=== PATIENT | female | born 1965 | race Caucasian/White ===

== ENCOUNTER → 2020-07-11 10:45 | Outpatient (BNVA) | payer OTHER, SELFPAY | PROVIDERS: PCP Internal Medicine; Visit Provider Student in an Organized Health Care Education/Training Program | DX: Z76.89 Persons encountering health services in other specified circumstances (principal) ==

== ENCOUNTER 2020-08-16 09:06 | Outpatient (REF) | payer OTHER, SELFPAY ==
--- NOTE | 2020-08-16 09:42 | XR_ITS ---
EXAMINATION: XR HIP, RIGHT XR HIP, LEFT CLINICAL INFORMATION: Rheumatoid arthritis. COMPARISON: None TECHNIQUE: 2 views of each hip. FINDINGS: Right hip: No fracture or dislocation. The femoral head articulates appropriately with its acetabulum. Mild joint space narrowing. Mild subchondral sclerosis. Small osteophytes present. The visualized right hemipelvis is intact. Left hip: No fracture or dislocation. The femoral head articulates appropriately with its acetabulum. Mild joint space narrowing. Mild subchondral sclerosis. Small osteophytes are present. The visualized left hemipelvis is intact. XR/XR hip LT min 2V IMPRESSION: Mild degenerative change with osteophyte formation. Mild joint space narrowing.
--- NOTE | 2020-08-16 09:42 | XR_ITS ---
EXAMINATION: XR HIP, RIGHT XR HIP, LEFT CLINICAL INFORMATION: Rheumatoid arthritis. COMPARISON: None TECHNIQUE: 2 views of each hip. FINDINGS: Right hip: No fracture or dislocation. The femoral head articulates appropriately with its acetabulum. Mild joint space narrowing. Mild subchondral sclerosis. Small osteophytes present. The visualized right hemipelvis is intact. Left hip: No fracture or dislocation. The femoral head articulates appropriately with its acetabulum. Mild joint space narrowing. Mild subchondral sclerosis. Small osteophytes are present. The visualized left hemipelvis is intact. XR/XR hip RT min 2V IMPRESSION: Mild degenerative change with osteophyte formation. Mild joint space narrowing.
== END 2020-08-16 09:07 | disposition home or self-care (01) ==
LOC: HO.XRAY 09:06
PROVIDERS: PCP Internal Medicine Gastroenterology; Visit Provider Student in an Organized Health Care Education/Training Program
DX: M05.9 Rheumatoid arthritis with rheumatoid factor, unspecified (principal); M79.7 Fibromyalgia; Z87.891 Personal history of nicotine dependence; Z88.8 Allergy status to other drugs, medicaments and biological substances; Z88.6 Allergy status to analgesic agent; Z88.1 Allergy status to other antibiotic agents; Z91.040 Latex allergy status; Z79.899 Other long term (current) drug therapy
CPT/HCPCS: 73502; 99212

== ENCOUNTER 2020-10-09 12:38 | Outpatient (REF) | payer OTHER, SELFPAY ==
[2020-10-09 13:54] LABS: MANUAL DIFF FLAG NO
[2020-10-09 13:58] LABS: Basophils Percent Auto 0.5 % (0-2); Eosinophils Absolute Auto 0.2 X10*3/uL (0.0-0.4); Eosinophils Percent Auto 3.6 % (0-4); Hematocrit 40.7 % (37-47); Hemoglobin 13.8 g/dl (12.0-16.0); Imm Gran Abs Auto 0.03 X10*3/uL (0.00-0.03); Imm Gran Pct Auto 0.5 % (0.0-0.4); Lymphocytes Absolute Auto 2.6 X10*3/uL (1.2-4.9); Lymphocytes Percent Auto 46.5 % (20-40); Mean Corpuscular HGB Conc 33.9 g/dl (31.0-35.0); Mean Corpuscular Hemoglobin 29.4 pg (27.0-33.0); Mean Corpuscular Volume 86.8 fL (80-98); Mean Platelet Volume 9.9 fL (9.4-12.3); Monocytes Absolute Auto 0.5 X10*3/uL (0.1-1.2); Monocytes Percent Auto 8.2 % (2-11); Neutrophils Absolute Auto 2.3 X10*3/uL (2.0-8.3); Neutrophils Percent Auto 40.7 % (45-73); Platelet Count 386 X10*3/uL (160-400); Red Blood Count 4.69 X10*6/uL (4.20-5.50); Red Cell Distribution Width 12.7 % (11.0-16.0); White Blood Count 5.6 X10*3/uL (4.8-10.8)
[2020-10-09 14:45] LABS: Alanine Aminotransferase 20 U/L (0-31); Albumin Level 4.3 g/dL (3.5-5.0); Alkaline Phosphatase 89 U/L (39-117); Anion Gap 16 (12-20); Aspartate Amino Transferase 18 U/L (5-31); Bilirubin Total 0.3 mg/dL (0.0-1.0); Blood Urea Nitrogen 16 mg/dL (9-16); C Reactive Protein 2.11 mg/dL (< or = 0.50); Calcium 9.8 mg/dL (8.4-10.2); Carbon Dioxide 28 mmol/L (22-29); Chloride 101 mmol/L (96-108); Estimated Glomerular Filt Rate > 60; Glucose Random 261 mg/dL (60-115); Potassium 4.7 mmol/L (3.3-5.1); Sodium 140 mmol/L (135-145); Total Protein 6.8 g/dL (6.5-8.0)
[2020-10-09 15:24] LABS: Erythrocyte Sedimentation Rate 12 MM/HR (0-20)
== END 2020-10-09 12:39 | disposition home or self-care (01) ==
LOC: HO.LAB 12:38
PROVIDERS: PCP Internal Medicine; Visit Provider Student in an Organized Health Care Education/Training Program
DX: M05.9 Rheumatoid arthritis with rheumatoid factor, unspecified (principal); M79.7 Fibromyalgia; Z88.8 Allergy status to other drugs, medicaments and biological substances; Z88.4 Allergy status to anesthetic agent; Z88.1 Allergy status to other antibiotic agents; Z91.040 Latex allergy status; Z79.899 Other long term (current) drug therapy
CPT/HCPCS: 36415; 80053; 85025; 85652; 86140; 99212

== ENCOUNTER 2020-12-12 10:02 | Outpatient (REF) | payer OTHER, SELFPAY ==
[2020-12-12 11:01] LABS: Basophils Percent Auto 0.8 % (0-2); Eosinophils Absolute Auto 0.2 X10*3/uL (0.0-0.4); Hematocrit 40.4 % (37-47); Hemoglobin 13.8 g/dl (12.0-16.0); Lymphocytes Absolute Auto 2.3 X10*3/uL (1.2-4.9); MANUAL DIFF FLAG SCAN; Mean Corpuscular HGB Conc 34.2 g/dl (31.0-35.0); Mean Corpuscular Hemoglobin 29.3 pg (27.0-33.0); Mean Corpuscular Volume 85.8 fL (80-98); Mean Platelet Volume 9.5 fL (9.4-12.3); Monocytes Absolute Auto 0.4 X10*3/uL (0.1-1.2); Monocytes Percent Auto 9.9 % (2-11); Neutrophils Absolute Auto 0.7 X10*3/uL (2.0-8.3); Neutrophils Percent Auto 20.3 % (45-73); Platelet Count 414 X10*3/uL (160-400); Red Blood Count 4.71 X10*6/uL (4.20-5.50); Red Cell Distribution Width 13.3 % (11.0-16.0); SCAN SMEAR FLAG 1; White Blood Count 3.7 X10*3/uL (4.8-10.8)
[2020-12-12 11:23] LABS: Alanine Aminotransferase 23 U/L (0-31); Albumin Level 4.7 g/dL (3.5-5.0); Alkaline Phosphatase 69 U/L (39-117); Anion Gap 13 (12-20); Aspartate Amino Transferase 23 U/L (5-31); Bilirubin Total 0.5 mg/dL (0.0-1.0); Blood Urea Nitrogen 12 mg/dL (9-16); C Reactive Protein 0.38 mg/dL (< or = 0.50); Calcium 10.2 mg/dL (8.4-10.2); Carbon Dioxide 29 mmol/L (22-29); Chloride 104 mmol/L (96-108); Cholesterol 254 mg/dL; Estimated Glomerular Filt Rate > 60; Glucose Random 109 mg/dL (60-115); HDL Cholesterol 40 mg/dL; LDL Cholesterol Calculated 165 mg/dl; Potassium 4.5 mmol/L (3.3-5.1); Sodium 141 mmol/L (135-145); Total Protein 7.2 g/dL (6.5-8.0); Triglycerides 247 mg/dL
[2020-12-12 11:46] LABS: Erythrocyte Sedimentation Rate 7 MM/HR (0-20)
[2020-12-12 11:51] LABS: SLIDE REVIEW VERIFIED
[2020-12-12 14:18] LABS: Reflex LDLD? No
== END 2020-12-12 10:03 | disposition home or self-care (01) ==
LOC: HO.LAB 10:02
PROVIDERS: PCP Internal Medicine; Visit Provider Student in an Organized Health Care Education/Training Program
DX: M05.9 Rheumatoid arthritis with rheumatoid factor, unspecified (principal)
CPT/HCPCS: 36415; 80053; 80061; 85025; 85652; 86140

== ENCOUNTER → 2020-12-21 14:31 | Outpatient (BNVA) | payer OTHER, SELFPAY | PROVIDERS: PCP Internal Medicine Gastroenterology; Visit Provider Student in an Organized Health Care Education/Training Program | DX: M05.9 Rheumatoid arthritis with rheumatoid factor, unspecified (principal); M79.7 Fibromyalgia | CPT/HCPCS: 99212 ==

== ENCOUNTER 2021-03-04 14:13 | Outpatient (REF) | payer OTHER, SELFPAY ==
[2021-03-04 14:43] LABS: MANUAL DIFF FLAG NO
[2021-03-04 14:55] LABS: Basophils Percent Auto 0.6 % (0-2); Eosinophils Absolute Auto 0.3 X10*3/uL (0.0-0.4); Eosinophils Percent Auto 4.7 % (0-4); Hematocrit 40.2 % (37-47); Hemoglobin 14.2 g/dl (12.0-16.0); Imm Gran Abs Auto 0.04 X10*3/uL (0.00-0.03); Imm Gran Pct Auto 0.6 % (0.0-0.4); Lymphocytes Absolute Auto 2.8 X10*3/uL (1.2-4.9); Lymphocytes Percent Auto 42.8 % (20-40); Mean Corpuscular HGB Conc 35.3 g/dl (31.0-35.0); Mean Corpuscular Hemoglobin 30.5 pg (27.0-33.0); Mean Corpuscular Volume 86.3 fL (80-98); Mean Platelet Volume 9.7 fL (9.4-12.3); Monocytes Absolute Auto 0.5 X10*3/uL (0.1-1.2); Monocytes Percent Auto 7.6 % (2-11); Neutrophils Absolute Auto 2.8 X10*3/uL (2.0-8.3); Neutrophils Percent Auto 43.7 % (45-73); Platelet Count 392 X10*3/uL (160-400); Red Blood Count 4.66 X10*6/uL (4.20-5.50); Red Cell Distribution Width 12.6 % (11.0-16.0); White Blood Count 6.5 X10*3/uL (4.8-10.8)
[2021-03-04 15:16] LABS: Alanine Aminotransferase 85 U/L (0-31); Albumin Level 4.5 g/dL (3.5-5.0); Alkaline Phosphatase 62 U/L (39-117); Anion Gap 12 (12-20); Aspartate Amino Transferase 65 U/L (5-31); Bilirubin Total 0.7 mg/dL (0.0-1.0); Blood Urea Nitrogen 10 mg/dL (9-16); C Reactive Protein 0.47 mg/dL (< or = 0.50); Carbon Dioxide 27 mmol/L (22-29); Chloride 106 mmol/L (96-108); Estimated Glomerular Filt Rate > 60; Glucose Random 142 mg/dL (60-115); Sodium 141 mmol/L (135-145); Total Protein 7.2 g/dL (6.5-8.0)
[2021-03-04 15:43] LABS: Erythrocyte Sedimentation Rate 6 MM/HR (0-20)
== END 2021-03-04 14:14 | disposition home or self-care (01) ==
LOC: HO.LAB 14:13
PROVIDERS: Visit Provider Student in an Organized Health Care Education/Training Program
DX: M05.9 Rheumatoid arthritis with rheumatoid factor, unspecified (principal)
CPT/HCPCS: 36415; 80053; 85025; 85652; 86140

== ENCOUNTER → 2021-03-07 14:36 | Outpatient (BNVA) | payer OTHER, SELFPAY | PROVIDERS: PCP Internal Medicine Gastroenterology; Visit Provider Student in an Organized Health Care Education/Training Program | DX: M05.9 Rheumatoid arthritis with rheumatoid factor, unspecified (principal); M79.7 Fibromyalgia; Z79.899 Other long term (current) drug therapy | CPT/HCPCS: 99212 ==

== ENCOUNTER 2021-06-06 14:12 | Outpatient (REF) | payer OTHER, SELFPAY ==
[2021-06-06 14:24] LABS: MANUAL DIFF FLAG NO
[2021-06-06 15:04] LABS: Basophils Percent Auto 0.5 % (0-2); Eosinophils Absolute Auto 0.3 X10*3/uL (0.0-0.4); Eosinophils Percent Auto 3.9 % (0-4); Hemoglobin 14.4 g/dl (12.0-16.0); Imm Gran Abs Auto 0.02 X10*3/uL (0.00-0.03); Imm Gran Pct Auto 0.3 % (0.0-0.4); Lymphocytes Absolute Auto 2.9 X10*3/uL (1.2-4.9); Lymphocytes Percent Auto 37.8 % (20-40); Mean Corpuscular HGB Conc 35.1 g/dl (31.0-35.0); Mean Corpuscular Hemoglobin 30.3 pg (27.0-33.0); Mean Corpuscular Volume 86.3 fL (80.0-98.0); Mean Platelet Volume 9.7 fL (9.4-12.3); Monocytes Absolute Auto 0.5 X10*3/uL (0.1-1.2); Monocytes Percent Auto 6.4 % (2-11); Neutrophils Absolute Auto 3.9 x10*3/uL (2.0-8.3); Neutrophils Percent Auto 51.1 % (45-73); Platelet Count 480 X10*3/uL (160-400); Red Blood Count 4.75 X10*6/uL (4.20-5.50); Red Cell Distribution Width 12.7 % (11.0-16.0); White Blood Count 7.5 X10*3/uL (4.8-10.8)
[2021-06-06 15:23] LABS: Alanine Aminotransferase 37 U/L (0-31); Albumin Level 4.4 g/dL (3.5-5.0); Alkaline Phosphatase 85 U/L (39-117); Anion Gap 12 (12-20); Aspartate Amino Transferase 36 U/L (5-31); Bilirubin Total 0.3 mg/dL (0.0-1.0); Blood Urea Nitrogen 9 mg/dL (9-16); C Reactive Protein 1.59 mg/dL (< or = 0.50); Calcium 10.2 mg/dL (8.4-10.2); Carbon Dioxide 30 mmol/L (22-29); Chloride 102 mmol/L (96-108); Cholesterol 243 mg/dL; Estimated Glomerular Filt Rate > 60; Glucose Random 110 mg/dL (60-115); HDL Cholesterol 39 mg/dL; Potassium 4.4 mmol/L (3.3-5.1); Sodium 140 mmol/L (135-145); Total Protein 7.5 g/dL (6.5-8.0); Triglycerides 505 mg/dL
[2021-06-06 15:35] LABS: Reflex LDLD? Yes
[2021-06-06 15:57] LABS: Erythrocyte Sedimentation Rate 14 MM/HR (0-20)
[2021-06-07 10:17] LABS: LDL Cholesterol Direct 168 mg/dL (<100)
== END 2021-06-06 14:13 | disposition home or self-care (01) ==
LOC: HO.LAB 14:12
PROVIDERS: Visit Provider Student in an Organized Health Care Education/Training Program
DX: M05.9 Rheumatoid arthritis with rheumatoid factor, unspecified (principal)
CPT/HCPCS: 36415; 80053; 80061; 83721; 85025; 85652; 86140

== ENCOUNTER → 2021-06-07 12:24 | Outpatient (BNVA) | payer OTHER, SELFPAY | PROVIDERS: PCP Internal Medicine Gastroenterology; Visit Provider Nurse Practitioner Family | DX: M05.9 Rheumatoid arthritis with rheumatoid factor, unspecified (principal); M79.7 Fibromyalgia | CPT/HCPCS: 99212 ==

== ENCOUNTER 2021-07-23 14:10 | Outpatient (REF) | payer OTHER, SELFPAY ==
[2021-07-23 14:27] LABS: MANUAL DIFF FLAG NO
[2021-07-23 15:05] LABS: Basophils Percent Auto 0.6 % (0-2); Eosinophils Absolute Auto 0.2 X10*3/uL (0.0-0.4); Eosinophils Percent Auto 3.9 % (0-4); Hematocrit 41.4 % (37.0-47.0); Imm Gran Abs Auto 0.03 X10*3/uL (0.00-0.03); Imm Gran Pct Auto 0.6 % (0.0-0.4); Lymphocytes Absolute Auto 2.3 X10*3/uL (1.2-4.9); Lymphocytes Percent Auto 43.9 % (20-40); Mean Corpuscular HGB Conc 33.8 g/dl (31.0-35.0); Mean Corpuscular Hemoglobin 29.7 pg (27.0-33.0); Mean Corpuscular Volume 87.7 fL (80.0-98.0); Mean Platelet Volume 9.7 fL (9.4-12.3); Monocytes Absolute Auto 0.5 X10*3/uL (0.1-1.2); Monocytes Percent Auto 8.8 % (2-11); Neutrophils Absolute Auto 2.2 x10*3/uL (2.0-8.3); Neutrophils Percent Auto 42.2 % (45-73); Platelet Count 464 X10*3/uL (160-400); Red Blood Count 4.72 X10*6/uL (4.20-5.50); Red Cell Distribution Width 12.3 % (11.0-16.0); White Blood Count 5.1 X10*3/uL (4.8-10.8)
[2021-07-23 15:30] LABS: Alanine Aminotransferase 40 U/L (0-31); Albumin Level 4.4 g/dL (3.5-5.0); Alkaline Phosphatase 74 U/L (39-117); Anion Gap 12 (12-20); Aspartate Amino Transferase 37 U/L (5-31); Bilirubin Total 0.4 mg/dL (0.0-1.0); Blood Urea Nitrogen 9 mg/dL (9-16); C Reactive Protein 1.48 mg/dL (< or = 0.50); Calcium 10.4 mg/dL (8.4-10.2); Carbon Dioxide 29 mmol/L (22-29); Chloride 103 mmol/L (96-108); Estimated Glomerular Filt Rate > 60; Glucose Random 215 mg/dL (60-115); Potassium 4.2 mmol/L (3.3-5.1); Sodium 140 mmol/L (135-145); Total Protein 7.2 g/dL (6.5-8.0)
[2021-07-23 16:28] LABS: Erythrocyte Sedimentation Rate 9 MM/HR (0-20)
== END 2021-07-23 14:11 | disposition home or self-care (01) ==
LOC: HO.LAB 14:10
PROVIDERS: Visit Provider Nurse Practitioner Family
DX: M05.9 Rheumatoid arthritis with rheumatoid factor, unspecified (principal)
CPT/HCPCS: 36415; 80053; 85025; 85652; 86140

== ENCOUNTER 2021-08-21 11:18 | Outpatient (REF) | payer OTHER, SELFPAY ==
[2021-08-21 13:19] LABS: Alanine Aminotransferase 44 U/L (0-31); Albumin Level 4.3 g/dL (3.5-5.0); Alkaline Phosphatase 73 U/L (39-117); Anion Gap 12 (12-20); Aspartate Amino Transferase 40 U/L (5-31); Bilirubin Total 0.4 mg/dL (0.0-1.0); Blood Urea Nitrogen 11 mg/dL (9-16); Calcium 10.4 mg/dL (8.4-10.2); Carbon Dioxide 30 mmol/L (22-29); Chloride 103 mmol/L (96-108); Estimated Glomerular Filt Rate > 60; Glucose Random 187 mg/dL (60-115); Potassium 4.3 mmol/L (3.3-5.1); Sodium 141 mmol/L (135-145); Total Protein 7.1 g/dL (6.5-8.0)
[2021-08-22 16:31] LABS: Calcium (PTHI) 10.3 mg/dL (8.6-10.4); PTHI 39 pg/mL (14-64)
== END 2021-08-21 11:19 | disposition home or self-care (01) ==
LOC: HO.LAB 11:18
PROVIDERS: Visit Provider Nurse Practitioner Family
DX: E83.52 Hypercalcemia (principal)
CPT/HCPCS: 36415; 80053; 83970

== ENCOUNTER 2021-09-18 07:42 | Outpatient (REF) | payer OTHER, SELFPAY ==
[2021-09-18 09:36] LABS: MANUAL DIFF FLAG NO
[2021-09-18 09:54] LABS: Basophils Percent Auto 0.5 % (0-2); Eosinophils Absolute Auto 0.4 X10*3/uL (0.0-0.4); Eosinophils Percent Auto 5.9 % (0-4); Hematocrit 39.6 % (37.0-47.0); Hemoglobin 13.5 g/dl (12.0-16.0); Imm Gran Abs Auto 0.01 X10*3/uL (0.00-0.03); Imm Gran Pct Auto 0.2 % (0.0-0.4); Lymphocytes Absolute Auto 2.5 X10*3/uL (1.2-4.9); Mean Corpuscular HGB Conc 34.1 g/dl (31.0-35.0); Mean Corpuscular Hemoglobin 29.3 pg (27.0-33.0); Mean Corpuscular Volume 86.1 fL (80.0-98.0); Mean Platelet Volume 9.5 fL (9.4-12.3); Monocytes Absolute Auto 0.4 X10*3/uL (0.1-1.2); Monocytes Percent Auto 6.9 % (2-11); Neutrophils Absolute Auto 2.7 x10*3/uL (2.0-8.3); Neutrophils Percent Auto 45.5 % (45-73); Platelet Count 378 X10*3/uL (160-400); Red Cell Distribution Width 12.7 % (11.0-16.0)
[2021-09-18 10:52] LABS: Alanine Aminotransferase 44 U/L (0-31); Albumin Level 4.3 g/dL (3.5-5.0); Alkaline Phosphatase 77 U/L (39-117); Anion Gap 11 (12-20); Aspartate Amino Transferase 56 U/L (5-31); Bilirubin Total 0.5 mg/dL (0.0-1.0); Blood Urea Nitrogen 11 mg/dL (9-16); C Reactive Protein 1.96 mg/dL (< or = 0.50); Calcium 10.3 mg/dL (8.4-10.2); Carbon Dioxide 31 mmol/L (22-29); Chloride 102 mmol/L (96-108); Estimated Glomerular Filt Rate > 60; Glucose Random 220 mg/dL (60-115); Potassium 4.3 mmol/L (3.3-5.1); Sodium 140 mmol/L (135-145)
[2021-09-18 11:20] LABS: HBc Num1 0.04 S/CO (0.00-0.79); Hepatitis A Antibody IgM 0.17 Index (0-0.79); Hepatitis B Core Antibody Nonreactive (Nonreactive); ~Hepatitis A Antibody IgM Nonreactive (Nonreactive); ~Hepatitis B Surface Antibody NONREACTIVE (Nonreactive); ~Hepatitis C Antibody Nonreactive (Nonreactive)
[2021-09-18 11:27] LABS: HBsAGNum1 0.24 S/CO (0.00-0.99); Hepatitis B Surface Antigen Negative (Negative)
[2021-09-20 19:11] LABS: TS Negative Control Passed; TS Panel A 0; TS Panel B 0; TS Positive Control Passed; TSpotTB Negative (Negative)
== END 2021-09-18 07:43 | disposition home or self-care (01) ==
LOC: HO.LAB 07:42
PROVIDERS: PCP Internal Medicine Gastroenterology; Visit Provider Internal Medicine Rheumatology
DX: Z11.1 Encounter for screening for respiratory tuberculosis (principal); R74.01 Elevation of levels of liver transaminase levels; M05.9 Rheumatoid arthritis with rheumatoid factor, unspecified; M79.7 Fibromyalgia; Z79.899 Other long term (current) drug therapy
CPT/HCPCS: 36415; 80053; 85025; 86140; 86481; 86704; 86706; 86709; 86803; 87340; 99212

== ENCOUNTER → 2021-10-31 07:42 | Outpatient (BNVA) | payer OTHER, SELFPAY | PROVIDERS: PCP Internal Medicine Gastroenterology; Visit Provider Internal Medicine Rheumatology | DX: Z13.89 Encounter for screening for other disorder (principal) ==

== ENCOUNTER 2021-12-18 12:40 | Outpatient (REF) | payer OTHER, SELFPAY ==
--- NOTE | ~2021-12-18 | XR_ITS ---
EXAMINATION: XR CERVICAL SPINE CLINICAL INFORMATION: Cervical spondyloarthritis. COMPARISON: None TECHNIQUE: Cervical spine is imaged in 5 views. FINDINGS: Mild dextrocurvature cervical thoracic region on AP view. Normal cervical lordosis. Vertebral bodies are normal in height. There is no vertebral compression, spondylolisthesis, destructive process, or prevertebral soft tissue swelling. The odontoid appears intact. There are degenerative disc changes C6-C7 with disc narrowing and endplate sclerosis and vertebral spurring. This is associated with left foraminal spurring at this level. XR/XR cervical spine min 6V IMPRESSION: -Mild dextrocurvature cervical thoracic region. Normal cervical lordosis. -Degenerative disc changes C6-C7 with vertebral and left foraminal spurring.
== END 2021-12-18 12:41 | disposition home or self-care (01) ==
LOC: HO.XRAY 12:40
PROVIDERS: PCP Physician Assistant; Visit Provider Psychiatry & Neurology Neurology
DX: M47.812 Spondylosis without myelopathy or radiculopathy, cervical region (principal)
CPT/HCPCS: 72052

== ENCOUNTER → 2022-02-10 14:38 | Outpatient (BNVA) | payer OTHER, SELFPAY | PROVIDERS: PCP Physician Assistant; Visit Provider Internal Medicine Rheumatology | DX: M05.9 Rheumatoid arthritis with rheumatoid factor, unspecified (principal); M79.7 Fibromyalgia; M16.0 Bilateral primary osteoarthritis of hip; M47.812 Spondylosis without myelopathy or radiculopathy, cervical region; M47.816 Spondylosis without myelopathy or radiculopathy, lumbar region; E11.9 Type 2 diabetes mellitus without complications; Z79.84 Long term (current) use of oral hypoglycemic drugs; Z79.899 Other long term (current) drug therapy | CPT/HCPCS: 99212 ==

== ENCOUNTER 2022-03-06 14:49 | Outpatient (REF) | payer OTHER, SELFPAY ==
[2022-03-06 15:02] LABS: MANUAL DIFF FLAG NO
[2022-03-06 15:38] LABS: Basophils Absolute Auto 0.1 X10*3/uL (0.0-0.2); Basophils Percent Auto 0.9 % (0-2); Eosinophils Absolute Auto 0.3 X10*3/uL (0.0-0.4); Eosinophils Percent Auto 4.6 % (0-4); Hematocrit 41.5 % (37.0-47.0); Hemoglobin 14.3 g/dl (12.0-16.0); Imm Gran Abs Auto 0.01 X10*3/uL (0.00-0.03); Imm Gran Pct Auto 0.2 % (0.0-0.4); Lymphocytes Absolute Auto 2.8 X10*3/uL (1.2-4.9); Mean Corpuscular HGB Conc 34.5 g/dl (31.0-35.0); Mean Corpuscular Hemoglobin 29.8 pg (27.0-33.0); Mean Corpuscular Volume 86.5 fL (80.0-98.0); Monocytes Absolute Auto 0.4 X10*3/uL (0.1-1.2); Monocytes Percent Auto 7.3 % (2-11); Platelet Count 456 X10*3/uL (160-400); Red Cell Distribution Width 13.6 % (11.0-16.0); White Blood Count 5.5 X10*3/uL (4.8-10.8)
[2022-03-06 15:59] LABS: C Reactive Protein 1.33 mg/dL (< or = 0.50)
[2022-03-06 16:35] LABS: Erythrocyte Sedimentation Rate 14 MM/HR (0-20)
== END 2022-03-06 14:50 | disposition home or self-care (01) ==
LOC: HO.LAB 14:49
PROVIDERS: PCP Student in an Organized Health Care Education/Training Program; Visit Provider Internal Medicine Rheumatology
DX: M05.9 Rheumatoid arthritis with rheumatoid factor, unspecified (principal); Z79.899 Other long term (current) drug therapy
CPT/HCPCS: 36415; 85025; 85652; 86140; 99281

== ENCOUNTER 2022-03-06 15:03 | Emergency (ER) | payer OTHER, SELFPAY ==
[2022-03-06 15:38] VITALS: BP 120/74; PULSE 90; RESP 18; TEMP 36.6; O2SAT 98; BMI 32.9
== END 2022-03-06 19:04 | disposition left against medical advice (07) ==
PROVIDERS: Emergency Provider Emergency Medicine; PCP Student in an Organized Health Care Education/Training Program
DX: M54.50 Low back pain, unspecified (principal); M25.551 Pain in right hip; M16.0 Bilateral primary osteoarthritis of hip; M47.812 Spondylosis without myelopathy or radiculopathy, cervical region; M47.816 Spondylosis without myelopathy or radiculopathy, lumbar region; E11.9 Type 2 diabetes mellitus without complications; M05.9 Rheumatoid arthritis with rheumatoid factor, unspecified; Z79.899 Other long term (current) drug therapy
CPT/HCPCS: 99281

== ENCOUNTER 2022-11-11 08:51 | Outpatient (REF) | payer OTHER, SELFPAY ==
--- NOTE | ~2022-11-11 | XR_ITS ---
EXAMINATION: XR SHOULDER, LEFT CLINICAL INFORMATION: Reason for Exam M25.512 - Pain in left shoulder COMPARISON: None TECHNIQUE: Four views of the shoulder. FINDINGS: No acute fracture. Minimal superior subluxation of the distal clavicle with respect to the acromion, which could be seen in the setting of a low-grade acromion clavicular injury in the appropriate clinical setting.. Mild degenerative changes of the glenohumeral joint with degenerative spurring and subchondral cystic change. Soft tissues are unremarkable. XR/XR shoulder LT min 2V IMPRESSION: 1. Minimal superior subluxation of the distal clavicle with respect to the acromion, which could be seen in the setting of a low-grade acromion clavicular injury in the appropriate clinical setting. 2. Mild degenerative changes of the glenohumeral joint.
[2022-11-11 09:58] LABS: MANUAL DIFF FLAG NO
[2022-11-11 10:29] LABS: Basophils Percent Auto 0.8 % (0-2); Eosinophils Absolute Auto 0.4 X10*3/uL (0.0-0.4); Eosinophils Percent Auto 7.1 % (0-4); Hematocrit 40.5 % (37.0-47.0); Hemoglobin 13.9 g/dl (12.0-16.0); Imm Gran Abs Auto 0.01 X10*3/uL (0.00-0.03); Imm Gran Pct Auto 0.2 % (0.0-0.4); Lymphocytes Absolute Auto 2.6 X10*3/uL (1.2-4.9); Lymphocytes Percent Auto 50.6 % (20-40); Mean Corpuscular HGB Conc 34.3 g/dl (31.0-35.0); Mean Corpuscular Hemoglobin 29.6 pg (27.0-33.0); Mean Corpuscular Volume 86.2 fL (80.0-98.0); Mean Platelet Volume 9.6 fL (9.4-12.3); Monocytes Absolute Auto 0.4 X10*3/uL (0.1-1.2); Neutrophils Absolute Auto 1.7 x10*3/uL (2.0-8.3); Neutrophils Percent Auto 33.3 % (45-73); Platelet Count 430 X10*3/uL (160-400); Red Cell Distribution Width 13.2 % (11.0-16.0); White Blood Count 5.2 X10*3/uL (4.8-10.8)
[2022-11-11 10:52] LABS: C Reactive Protein 0.93 mg/dL (< or = 0.50)
[2022-11-11 11:18] LABS: Erythrocyte Sedimentation Rate 12 MM/HR (0-20)
== END 2022-11-11 08:52 | disposition home or self-care (01) ==
LOC: HO.XRAY 08:51
PROVIDERS: PCP Student in an Organized Health Care Education/Training Program; Visit Provider Internal Medicine Rheumatology
DX: M25.512 Pain in left shoulder (principal); M47.816 Spondylosis without myelopathy or radiculopathy, lumbar region; M79.7 Fibromyalgia; M05.9 Rheumatoid arthritis with rheumatoid factor, unspecified; Z79.899 Other long term (current) drug therapy
CPT/HCPCS: 36415; 73030; 85025; 85652; 86140; 99212

== ENCOUNTER 2023-02-24 11:04 | Outpatient (AMB) | payer OTHER, SELFPAY ==
[2023-02-24 11:17] VITALS: BP 122/78; PULSE 80; TEMP 36.4; O2SAT 95; BMI 32.1
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
== END 2023-02-24 11:44 | disposition home or self-care (01) ==
PROVIDERS: PCP Student in an Organized Health Care Education/Training Program; Visit Provider Internal Medicine Rheumatology
DX: M05.79 Rheumatoid arthritis with rheumatoid factor of multiple sites without organ or systems involvement (principal); Z79.899 Other long term (current) drug therapy; M75.82 Other shoulder lesions, left shoulder
CPT/HCPCS: 20610; 99213

== ENCOUNTER → 2023-02-24 11:04 | Outpatient (BNVA) | payer OTHER, SELFPAY | PROVIDERS: PCP Student in an Organized Health Care Education/Training Program; Visit Provider Internal Medicine Rheumatology | DX: M05.9 Rheumatoid arthritis with rheumatoid factor, unspecified (principal); M75.82 Other shoulder lesions, left shoulder; Z79.899 Other long term (current) drug therapy | CPT/HCPCS: 20610; 99212 ==

== ENCOUNTER 2023-08-12 15:18 | Outpatient (REF) | payer OTHER, SELFPAY ==
[2023-08-12 16:56] LABS: MANUAL DIFF FLAG NO
[2023-08-12 17:57] LABS: Basophils Percent Auto 0.5 % (0-2); Eosinophils Absolute Auto 0.3 X10*3/uL (0.0-0.4); Hematocrit 41.3 % (37.0-47.0); Hemoglobin 14.3 g/dl (12.0-16.0); Imm Gran Abs Auto 0.02 X10*3/uL (0.00-0.03); Imm Gran Pct Auto 0.3 % (0.0-0.4); Lymphocytes Absolute Auto 3.6 X10*3/uL (1.2-4.9); Lymphocytes Percent Auto 55.3 % (20-40); Mean Corpuscular HGB Conc 34.6 g/dl (31.0-35.0); Mean Corpuscular Hemoglobin 29.5 pg (27.0-33.0); Mean Corpuscular Volume 85.2 fL (80.0-98.0); Mean Platelet Volume 9.5 fL (9.4-12.3); Monocytes Absolute Auto 0.4 X10*3/uL (0.1-1.2); Monocytes Percent Auto 6.3 % (2-11); Neutrophils Absolute Auto 2.2 x10*3/uL (2.0-8.3); Neutrophils Percent Auto 33.6 % (45-73); Platelet Count 462 X10*3/uL (160-400); Red Blood Count 4.85 X10*6/uL (4.20-5.50); Red Cell Distribution Width 12.6 % (11.0-16.0); White Blood Count 6.6 X10*3/uL (4.8-10.8)
[2023-08-12 18:43] LABS: Alanine Aminotransferase 27 U/L (0-31); Albumin Level 4.5 g/dL (3.5-5.0); Alkaline Phosphatase 64 U/L (39-117); Anion Gap 12 (12-20); Aspartate Amino Transferase 25 U/L (5-31); Bilirubin Total 0.3 mg/dL (0.0-1.0); Blood Urea Nitrogen 8 mg/dL (9-16); C Reactive Protein 1.06 mg/dL (< or = 0.50); Calcium 9.9 mg/dL (8.4-10.2); Carbon Dioxide 30 mmol/L (22-29); Chloride 101 mmol/L (96-108); Estimated Glomerular Filt Rate > 60; Glucose Random 103 mg/dL (60-115); Potassium 3.2 mmol/L (3.3-5.1); Sodium 140 mmol/L (135-145); Total Protein 7.9 g/dL (6.5-8.0)
[2023-08-12 18:59] LABS: Erythrocyte Sedimentation Rate 14 MM/HR (0-20)
== END 2023-08-12 15:19 | disposition home or self-care (01) ==
LOC: HO.LAB 15:18
PROVIDERS: PCP Student in an Organized Health Care Education/Training Program; Visit Provider Nurse Practitioner Family
DX: M05.9 Rheumatoid arthritis with rheumatoid factor, unspecified (principal); M75.82 Other shoulder lesions, left shoulder; Z79.899 Other long term (current) drug therapy
CPT/HCPCS: 36415; 80053; 85025; 85652; 86140; 99212

== ENCOUNTER 2023-08-12 15:18 | Outpatient (AMB) | payer OTHER, SELFPAY ==
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
[2023-08-12 15:33] VITALS: BP 128/72; PULSE 85; RESP 16; TEMP 36.1; O2SAT 96; BMI 31.9
== END 2023-08-12 16:33 | disposition home or self-care (01) ==
PROVIDERS: PCP Student in an Organized Health Care Education/Training Program; Visit Provider Nurse Practitioner Family
DX: M05.79 Rheumatoid arthritis with rheumatoid factor of multiple sites without organ or systems involvement (principal); M75.82 Other shoulder lesions, left shoulder; Z79.899 Other long term (current) drug therapy
CPT/HCPCS: 99214

== ENCOUNTER 2024-02-17 11:15 | Outpatient (REF) | payer OTHER, SELFPAY ==
[2024-02-17 12:08] LABS: MANUAL DIFF FLAG NO
[2024-02-17 13:35] LABS: Basophils Percent Auto 0.8 % (0-2); Eosinophils Absolute Auto 0.2 X10*3/uL (0.0-0.4); Eosinophils Percent Auto 3.4 % (0-4); Hemoglobin 14.2 g/dl (12.0-16.0); Imm Gran Abs Auto 0.02 X10*3/uL (0.00-0.03); Imm Gran Pct Auto 0.4 % (0.0-0.4); Lymphocytes Absolute Auto 2.9 X10*3/uL (1.2-4.9); Mean Corpuscular HGB Conc 34.6 g/dl (31.0-35.0); Mean Corpuscular Hemoglobin 29.8 pg (27.0-33.0); Mean Platelet Volume 9.7 fL (9.4-12.3); Monocytes Absolute Auto 0.3 X10*3/uL (0.1-1.2); Monocytes Percent Auto 6.3 % (2-11); Neutrophils Absolute Auto 1.5 x10*3/uL (2.0-8.3); Neutrophils Percent Auto 31.1 % (45-73); Platelet Count 447 X10*3/uL (160-400); Red Blood Count 4.77 X10*6/uL (4.20-5.50); Red Cell Distribution Width 12.6 % (11.0-16.0); White Blood Count 4.9 X10*3/uL (4.8-10.8)
[2024-02-17 13:59] LABS: Alanine Aminotransferase 18 U/L (0-31); Albumin Level 4.7 g/dL (3.5-5.0); Alkaline Phosphatase 68 U/L (39-117); Anion Gap 13 (12-20); Aspartate Amino Transferase 24 U/L (5-31); Bilirubin Total 0.7 mg/dL (0.0-1.0); Blood Urea Nitrogen 10 mg/dL (9-16); C Reactive Protein 0.94 mg/dL (< or = 0.50); Calcium 10.3 mg/dL (8.4-10.2); Carbon Dioxide 28 mmol/L (22-29); Chloride 104 mmol/L (96-108); Estimated Glomerular Filt Rate > 60; Glucose Random 103 mg/dL (60-115); Potassium 3.6 mmol/L (3.3-5.1); Sodium 141 mmol/L (135-145); Total Protein 8.1 g/dL (6.5-8.0)
[2024-02-17 14:14] LABS: Erythrocyte Sedimentation Rate 14 MM/HR (0-20)
[2024-02-18 04:04] LABS: HBS Num1 0.45 mIU/mL (0-7.99); HBc Num1 0.09 S/CO (0.00-0.79); HBsAGNum1 0.59 S/CO (0.00-0.99); Hepatitis A Antibody IgM 0.18 Index (0-0.79); Hepatitis B Core Antibody Nonreactive (Nonreactive); Hepatitis B Surface Antigen Negative (Negative); ~HepC Num1 0.22 S/CO (0.00-0.79); ~Hepatitis A Antibody IgM Nonreactive (Nonreactive); ~Hepatitis B Surface Antibody NONREACTIVE (Nonreactive); ~Hepatitis C Antibody Nonreactive (Nonreactive)
[2024-02-20 00:39] LABS: TS Negative Control Passed; TS Panel A 0; TS Panel B 0; TS Positive Control Passed; TSpotTB Negative (Negative)
== END 2024-02-17 11:16 | disposition home or self-care (01) ==
LOC: HO.LAB 11:15
PROVIDERS: PCP Student in an Organized Health Care Education/Training Program; Visit Provider Student in an Organized Health Care Education/Training Program
DX: Z11.59 Encounter for screening for other viral diseases (principal); Z11.7 Encounter for testing for latent tuberculosis infection; M05.9 Rheumatoid arthritis with rheumatoid factor, unspecified; R20.0 Anesthesia of skin; Z79.899 Other long term (current) drug therapy
CPT/HCPCS: 36415; 80053; 85025; 85652; 86140; 86481; 86704; 86706; 86709; 86803; 87340; 99212

== ENCOUNTER 2024-02-17 11:15 | Outpatient (AMB) | payer OTHER, SELFPAY ==
[2024-02-17 11:23] VITALS: BP 120/70; PULSE 71; O2SAT 96; BMI 30.4
--- NOTE | 2024-02-17 11:23 | A.OFFVIS_ITS ---
Vital Signs 02/17/24 11:23 Height 5 ft 2 in Weight 166 lb 0.129 oz BMI 30.4 BP 120/70 Blood Pressure Location Lt brachial Position Sitting Pulse 71 Pulse Source Pulse Oximeter Pulse Oximetry (%) 96 Oxygen Delivery Method Room Air Intake Visit Reasons: RA Intake Note: Patient is here for follow up on RA. Allergies cefazolin [From ANCEF] Allergy (Severe, Verified 02/17/24 11:27) anaphlaxis duloxetine [Cymbalta] Allergy (Intermediate, Verified 02/17/24 11:27) Rash methotrexate Allergy (Intermediate, Verified 02/17/24 11:27) Swelling insulin glargine [From Lantus U-100 Insulin] Adverse Reaction (Severe, Unverified 02/17/24 11:27) Anaphylaxis Latex Allergy (Intermediate, Uncoded 02/17/24 11:27) rash Medication List - Last Reconciled 02/17/24 by Michelet Black MD adalimumab (Humira(CF) Pen) 40 mg (0.4 mL) subcut QWEEK albuterol sulfate 2.5 mg inhalation Q6H aspirin 81 mg PO DAILY betamethasone dipropionate 0.05% 1 appl topical BID budesonide 180 mcg/actuation (Pulmicort Flexhaler) 1 inh inhalation BID dicyclomine 10 mg PO TID epinephrine (EpiPen) 0.3 mg IM Q10M PRN famotidine 20 mg PO BID gabapentin 300 mg PO TID hydroxyzine HCl 25 mg PO BID PRN ibuprofen 800 mg PO BID PRN infusion set-insulin pump body As directed insulin lispro (Humalog U-100 Insulin) 5 units subcut TID lansoprazole 30 mg PO DAILY lisinopril 10 mg PO DAILY lurasidone (Latuda) 40 mg PO DAILY naltrexone 50 mg PO DAILY ondansetron HCl 4 mg PO Q8H PRN pravastatin 40 mg PO DAILY prazosin 1 mg PO BEDTIME prednisone Take 3 tablets per x 7 days, 2 tablets x 10 days, 1 tablet x 10 days. ramelteon 8 mg PO BEDTIME rizatriptan take 1 tab at onset of headache; if no relief may repeat 1 tab after at least 2 hrs; max = 3 tabs/24 hr PO sumatriptan succinate take 1 tab at onset of headache; if no relief, may repeat 1 tab after at least 2 hrs; max = 2 tabs/24 hrs PO topiramate 200 mg PO BID triamcinolone acetonide 0.1% 1 appl topical DAILY HPI Comments Details: This is a 58-year-old female with seropositive RA who returns for follow-up. He remains on Humira 40 mg weekly. She states that overall she has done much better since Humira was started. Over the last 4 months she has been having left foot and ankle numbness and weakness, she states that she fallen once or twice because she could not feel her foot. She was evaluated by her PCP and referred see a global compensation manager. She states that she has an appointment with a global compensation manager towards the end of February. She denies any significant low back pain. She continues to have bilateral shoulder stiffness, worse on the left. Left shoulder Steroid injection done by Dr. [place] last year was not very helpful [facility] Medical History Eczema of hand intermediate current use of immunosuppressive drug Diabetes intermediate methotrexate user Fibromyalgia Seropositive rheumatoid arthritis Surgical History Hx of craniotomy Hx of tubal ligation Hx of hysterectomy Family History Mother Diabetes Father CVD (cardiovascular disease) Sister Diabetes Daughter Diabetes Social History Alcohol intake: current Patient Tobacco Use Status: Former Tobacco user Cigarettes Per Day: 30 Years Smoked: 16 Review of Systems Musc Denies joint swelling, Reports limited range of motion, Reports muscle weakness, Reports numbness and Reports stiffness Neuro Reports numbness Physical Exam Vital Signs: Last Vital Signs Pulse 71 02/17/24 11:23 BP 120/70 02/17/24 11:23 Pulse Ox 96 02/17/24 11:23 Oxygen Delivery Method Room Air 02/17/24 11:23 BMI result Body Mass Index 30.4 Const General: cooperative, healthy appearing and comfortable Nutritional Appearance: overweight Orientation/consciousness: patient oriented x3 Limitations: no limitations HEENT Head: Yes normocephalic and Yes atraumatic Mouth: moist mucous membranes Resp Effort & Inspection: normal respiratory effort and able to speak in complete sentences Auscultation: clear to auscultation bilaterally Cardio Rate: regular rate Rhythm: regular rhythm Skin General skin exam: no rashes or lesions noted Neuro General: patient oriented x3 Extrem Other: No active synovitis both hands wrists elbows Mildly reduced shoulder abduction bilaterally Mild right trochanteric bursa area pain with straight leg raise test on the right No knee pain with flexion-extension bilaterally Left and pain with left straight leg raise test Shooting nerve pain when palpating the left ankle Reduced sensation from the left ankle down words Mildly reduced left foot dorsiflexion Intact position sense right foot Unable to determine position sense left foot Assessment & Plan Assessment & Plan (1) Seropositive rheumatoid arthritis: Comment: +RF, -ve CCP dx 03/2017 failed methotrexate, Plaquenil, Orencia. elevated LFT on Kevzara Humira started 09/3021 effective Code(s): M05.9 - Rheumatoid arthritis with rheumatoid factor, unspecified Category: Medical Plan: This is a 58-year-old female with seropositive RA who presents for follow-up. This is her 1st visit with me. Remains on Humira 40 mg weekly with good control of her RA. I do not see any active synovitis today Continue with Humira 40 mg weekly Labs today Follow-up in 4 months (2) Numbness of left foot: Code(s): R20.0 - Anesthesia of skin Category: Medical Plan: Check bilateral lower extremity EMG/NCV Scheduled to see a global compensation manager towards the end of February (3) intermediate current use of immunosuppressive drug: Code(s): Z79.899 - Other half-way (current) drug therapy Category: Medical Plan: Side effects of Humira were discussed with the patient in detail including increased risk of infection, demyelinating disease, reactivation of latent TB, possible increased risk of solid and skin tumors. Patient fully aware. Advised patient to seek medical care ELISHA if patient has an infection and advised patient to stop the medication until the infection is resolved. Plan I spent 30 minutes reviewing patient's chart, evaluating patient, ordering diagnostic workup, counseling patient and documenting in the chart Orders: Orders Comprehensive Met. Panel Today M05.9 - Rheumatoid arthritis with rheumatoid factor, unspecified C Reactive Protein Today M05.9 - Rheumatoid arthritis with rheumatoid factor, unspecified Hepatitis A,B,C Profile Today Z11.59 - Encounter for screening for other viral diseases T Spot TB Today Z11.7 - Encounter for testing for latent tuberculosis infection NE electromyogram (EMG) Today R20.0 - Anesthesia of skin Complete Blood Count Auto Diff Today M05.9 - Rheumatoid arthritis with rheumatoid factor, unspecified Erythrocyte Sedimentation Rate Today M05.9 - Rheumatoid arthritis with rheumatoid factor, unspecified Coding Level of Care Code Est Pt Level 4 (72857) Diagnoses Seropositive rheumatoid arthritis M05.9 Numbness of left foot R20.0 intermediate current use of immunosuppressive drug Z79.899
== END 2024-02-17 11:47 | disposition home or self-care (01) ==
PROVIDERS: PCP Student in an Organized Health Care Education/Training Program; Visit Provider Student in an Organized Health Care Education/Training Program
DX: M05.79 Rheumatoid arthritis with rheumatoid factor of multiple sites without organ or systems involvement (principal); R20.0 Anesthesia of skin; Z79.899 Other long term (current) drug therapy
CPT/HCPCS: 99214

== ENCOUNTER 2024-02-25 13:36 | Outpatient (REF) | payer OTHER, SELFPAY ==
--- NOTE | 2024-02-25 13:38 | EMG_ITS ---
Chief complaint: Left foot numbness for the last 3 months, history of RA Reason for referral: Evaluate for neuropathy Referred by: Dr. Black Procedure done: Left lower extremity NCS/EMG, with comparison to right Precautions and/or limitations: None The limb temperature was monitored continuously and remained between 32-36 degrees C during the performance of the NCS. Nerve Conduction Studies Anti Sensory Summary Table ?Stim Site NR Onset (ms) Norm Onset (ms) Peak (ms) Norm Peak (ms) O-P Amp (?V) Norm O-P Amp Site1 Site2 Delta-0 (ms) Dist (cm) Wagner (m/s) Norm Wagner (m/s) Left Sural Anti Sensory (Lat Mall) Calf ? 1.7 2.8 <4.0 5.1 >5.0 Calf Lat Mall 1.7 14.0 82 Right Sural Anti Sensory (Lat Mall) Calf ? 2.9 3.5 <4.0 13.0 >5.0 Calf Lat Mall 2.9 14.0 48 Motor Summary Table ?Stim Site NR Onset (ms) Norm Onset (ms) O-P Amp (mV) Norm O-P Amp iAmp (mV) Amp (1st) (%) Site1 Site2 Delta-0 (ms) Dist (cm) Wagner (m/s) Norm Wagner (m/s) Left Peroneal Motor (Ext Dig Brev) Ankle ? 3.8 <4.0 3.8 >2.5 4.6 100.0 Ankle Ext Dig Brev 3.8 0.0 B Fib ? 10.3 3.1 3.7 81.6 B Fib Ankle 6.5 34.0 52 >40 Poplt ? 10.8 3.1 3.7 81.6 Poplt B Fib 0.5 4.0 80 >40 Left Tibial Motor (Abd Roque Brev) Ankle ? 4.5 <5 6.1 >2.5 9.2 100.0 Ankle Abd Roque Brev 4.5 0.0 Knee ? 11.4 4.2 6.3 68.9 Knee Ankle 6.9 38.0 55 >40 EMG ?Side Muscle Nerve Root Ins Act Fibs Psw Amp Dur Poly Recrt Int Pat Comment Left AbdHallucis MedPlantar S1-2 Nml Nml Nml Nml Nml 0 Nml Complete Left AntTibialis Dp Br Peron L4-5 Nml Nml Nml Nml Nml 0 Nml Complete Left PostTibialis Tibial L5, S1 Nml Nml Nml Nml Nml 0 Nml Complete Left MedGastroc Tibial S1-2 Nml Nml Nml Nml Nml 0 Nml Complete Left VastusMed Femoral L2-4 Nml Nml Nml Nml Nml 0 Nml Complete FINDINGS: All motor and sensory nerves tested showed normal latencies, amplitudes and conduction velocities. Concentric needle EMG was performed in selected muscles of the lower extremity. Study did not reveal signs of electric abnormalities as shown in the table above. IMPRESSION: 1. This is a normal study. 2. There is no electrodiagnostic evidence for peroneal neuropathy, tibial neuropathy, lumbosacral plexopathy, lumbar radiculopathy, or peripheral neuropathy. Thank you for your kind referral. Jennifer Oneil MD, JULIAN Board Certified, [place] Board [employer] and Rehabilitation (ABPMR) Board Certified, [place] Board of Electrodiagnostic Medicine (ABEM) [place] [id number] [facility]
== END 2024-02-25 13:37 | disposition home or self-care (01) ==
LOC: HO.NEURO 13:36
PROVIDERS: PCP Student in an Organized Health Care Education/Training Program; Visit Provider Student in an Organized Health Care Education/Training Program
DX: R20.0 Anesthesia of skin (principal)
CPT/HCPCS: 95886; 95908

== ENCOUNTER → 2024-02-25 13:38 | Outpatient (BNV) | payer OTHER, SELFPAY | PROVIDERS: PCP Student in an Organized Health Care Education/Training Program; Visit Provider Physical Medicine & Rehabilitation | DX: R20.0 Anesthesia of skin (principal) | CPT/HCPCS: 95886; 95909 ==

== ENCOUNTER 2024-06-20 07:40 | Outpatient (AMB) | payer OTHER, SELFPAY ==
--- NOTE | 2024-06-20 07:42 | A.OFFVIS_ITS ---
Vital Signs 06/20/24 07:45 Height 5 ft 2 in Weight 171 lb 4.787 oz BMI 31.3 BP 115/70 Blood Pressure Location Rt brachial Position Sitting Respiration 16 Pulse 78 Pulse Source Pulse Oximeter Pulse Oximetry (%) 96 Oxygen Delivery Method Room Air Intake Visit Reasons: RA/CM Intake Note: Patient presents for RA. Allergies cefazolin [From ANCEF] Allergy (Severe, Verified 06/20/24 07:45) anaphlaxis duloxetine [Cymbalta] Allergy (Intermediate, Verified 06/20/24 07:45) Rash methotrexate Allergy (Intermediate, Verified 06/20/24 07:45) Swelling insulin glargine [From Lantus U-100 Insulin] Adverse Reaction (Severe, Verified 06/20/24 07:45) Anaphylaxis Latex Allergy (Intermediate, Uncoded 02/17/24 11:27) rash Medication List - Last Reconciled 06/20/24 by Michelet Black MD albuterol sulfate 2.5 mg inhalation Q6H aspirin 81 mg PO DAILY betamethasone dipropionate 0.05% 1 appl topical BID budesonide 180 mcg/actuation (Pulmicort Flexhaler) 1 inh inhalation BID dicyclomine 10 mg PO TID epinephrine (EpiPen) 0.3 mg IM Q10M PRN famotidine 20 mg PO BID gabapentin 300 mg PO TID Humira(CF) Pen (adalimumab) 40 mg (0.4 mL) subcut QWEEK NS hydroxyzine HCl 25 mg PO BID PRN ibuprofen 800 mg PO BID PRN infusion set-insulin pump body As directed insulin lispro (Humalog U-100 Insulin) 5 units subcut TID lansoprazole 30 mg PO DAILY lisinopril 10 mg PO DAILY lurasidone (Latuda) 40 mg PO DAILY naltrexone 50 mg PO DAILY ondansetron HCl 4 mg PO Q8H PRN pravastatin 40 mg PO DAILY prazosin 1 mg PO BEDTIME prednisone Take 3 tablets per x 7 days, 2 tablets x 10 days, 1 tablet x 10 days. ramelteon 8 mg PO BEDTIME rizatriptan take 1 tab at onset of headache; if no relief may repeat 1 tab after at least 2 hrs; max = 3 tabs/24 hr PO sumatriptan succinate take 1 tab at onset of headache; if no relief, may repeat 1 tab after at least 2 hrs; max = 2 tabs/24 hrs PO topiramate 200 mg PO BID triamcinolone acetonide 0.1% 1 appl topical DAILY HPI Comments Details: This is a 58-year-old female with seropositive RA who returns for follow-up. She remains on Humira 40 mg weekly. She states that she has not been feeling well lately. Feeling generalized achiness especially in her shoulders and the outside of her hips. She states that she feels like that when the weather gets cold. Stated that she has a lump on the radial aspect of her left wrist and she will be seeing a hand surgeon soon. 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 Fibromyalgia Seropositive rheumatoid arthritis Surgical History Hx of craniotomy Hx of tubal ligation Hx of hysterectomy Family History Mother Diabetes Father CVD (cardiovascular disease) Sister Diabetes Daughter Diabetes Social History Alcohol intake: current Patient Tobacco Use Status: Former Tobacco user Cigarettes Per Day: 30 Years Smoked: 16 Review of Systems [facility] Reports arthralgias and Reports stiffness Physical Exam Vital Signs: Last Vital Signs Pulse 78 06/20/24 07:45 Resp 16 06/20/24 07:45 BP 115/70 06/20/24 07:45 Pulse Ox 96 06/20/24 07:45 Oxygen Delivery Method Room Air 06/20/24 07:45 BMI result Body Mass Index 31.3 Const General: cooperative, healthy appearing and comfortable Nutritional Appearance: overweight Orientation/consciousness: patient oriented x3 Limitations: no limitations HEENT Head: Yes normocephalic and Yes atraumatic Mouth: moist mucous membranes Resp Effort & Inspection: normal respiratory effort and able to speak in complete sentences Auscultation: clear to auscultation bilaterally Cardio Rate: regular rate Rhythm: regular rhythm Skin General skin exam: no rashes or lesions noted Neuro General: patient oriented x3 Extrem Other: Multiple tender joints including wrists, MCPs, PIP is, DIPs both hands but no visible swelling 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 elevated LFT on Kevzara Humira started 09/3021 effective Code(s): M05.9 - Rheumatoid arthritis with rheumatoid factor, unspecified Category: Medical Plan: This is a 58-year-old female with seropositive RA who presents for follow-up. Remains on Humira 40 mg weekly with good control of her RA. 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 Patient fully aware. Advised patient to seek medical care ELISHA if patient has an infection and advised patient to stop the medication until the infection is resolved. Discussed importance of vaccination. Patient states that she gets significant reactions to vaccines, including the flu vaccine. She is not planning on getting any vaccination this season. (3) Greater trochanteric bursitis of both hips: Code(s): M70.61 - Trochanteric bursitis, right hip; M70.62 - Trochanteric bursitis, left hip Category: Medical Plan: Referred to PT Plan I spent 25 minutes reviewing patient's chart, evaluating patient, ordering diagnostic workup, counseling patient and documenting in the chart Orders: Orders Complete Blood Count Auto Diff 6 Months M05.9 - Rheumatoid arthritis with rheumatoid factor, unspecified Erythrocyte Sedimentation Rate 6 Months M05.9 - Rheumatoid arthritis with rheumatoid factor, unspecified T Spot TB 6 Months Z11.7 - Encounter for testing for latent tuberculosis infection PT Evaluation and Treatment Today M16.0 - Bilateral primary osteoarthritis of hip, M70.61 - Trochanteric bursitis, right hip, M70.62 - Trochanteric bursitis, left hip Comprehensive Met. Panel 6 Months M05.9 - Rheumatoid arthritis with rheumatoid factor, unspecified C Reactive Protein 6 Months M05.9 - Rheumatoid arthritis with rheumatoid factor, unspecified Hepatitis A,B,C Profile 6 Months Z11.59 - Encounter for screening for other viral diseases Coding Level of Care Code Est Pt Level 4 (80500) Complex EM visit Add On G2211 Diagnoses Seropositive rheumatoid arthritis M05.9 senior care current use of immunosuppressive drug Z79.899 Greater trochanteric bursitis of both hips M70.61; M70.62
[2024-06-20 07:45] VITALS: BP 115/70; PULSE 78; RESP 16; O2SAT 96; BMI 31.3
== END 2024-06-20 08:01 | disposition home or self-care (01) ==
PROVIDERS: PCP Student in an Organized Health Care Education/Training Program; Visit Provider Student in an Organized Health Care Education/Training Program
DX: M05.79 Rheumatoid arthritis with rheumatoid factor of multiple sites without organ or systems involvement (principal); Z79.899 Other long term (current) drug therapy; M70.61 Trochanteric bursitis, right hip; M70.62 Trochanteric bursitis, left hip
CPT/HCPCS: 99213; G2211

== ENCOUNTER → 2024-06-20 07:40 | Outpatient (BNVA) | payer OTHER, SELFPAY | PROVIDERS: PCP Student in an Organized Health Care Education/Training Program; Visit Provider Student in an Organized Health Care Education/Training Program | DX: M05.9 Rheumatoid arthritis with rheumatoid factor, unspecified (principal); M70.61 Trochanteric bursitis, right hip; M70.62 Trochanteric bursitis, left hip; M16.0 Bilateral primary osteoarthritis of hip; Z79.899 Other long term (current) drug therapy | CPT/HCPCS: 99212 ==

== ENCOUNTER 2024-11-14 14:31 | Outpatient (REF) | payer OTHER, SELFPAY ==
[2024-11-14 14:47] LABS: MANUAL DIFF FLAG NO
[2024-11-14 15:10] LABS: Basophils Percent Auto 0.7 % (0-2); Eosinophils Absolute Auto 0.2 X10*3/uL (0.0-0.4); Eosinophils Percent Auto 3.8 % (0-4); Hematocrit 40.3 % (37.0-47.0); Hemoglobin 14.1 g/dl (12.0-16.0); Imm Gran Abs Auto 0.02 X10*3/uL (0.00-0.03); Imm Gran Pct Auto 0.3 % (0.0-0.4); Lymphocytes Absolute Auto 3.4 X10*3/uL (1.2-4.9); Lymphocytes Percent Auto 57.2 % (20-40); Mean Corpuscular Hemoglobin 29.6 pg (27.0-33.0); Mean Corpuscular Volume 84.7 fL (80.0-98.0); Mean Platelet Volume 9.4 fL (9.4-12.3); Monocytes Absolute Auto 0.5 X10*3/uL (0.1-1.2); Monocytes Percent Auto 8.3 % (2-11); Neutrophils Absolute Auto 1.8 x10*3/uL (2.0-8.3); Neutrophils Percent Auto 29.7 % (45-73); Platelet Count 454 X10*3/uL (160-400); Red Blood Count 4.76 X10*6/uL (4.20-5.50); Red Cell Distribution Width 12.8 % (11.0-16.0)
[2024-11-14 15:52] LABS: Erythrocyte Sedimentation Rate 16 MM/HR (0-20)
[2024-11-14 15:57] LABS: Alanine Aminotransferase 25 U/L (0-31); Albumin Level 4.6 g/dL (3.5-5.0); Alkaline Phosphatase 73 U/L (39-117); Anion Gap 12 (12-20); Aspartate Amino Transferase 30 U/L (5-31); Bilirubin Total 0.3 mg/dL (0.0-1.0); Blood Urea Nitrogen 11 mg/dL (9-16); C Reactive Protein 1.11 mg/dL (< or = 0.50); Calcium 9.9 mg/dL (8.4-10.2); Carbon Dioxide 29 mmol/L (22-29); Chloride 104 mmol/L (96-108); Estimated Glomerular Filt Rate > 60; Glucose Random 102 mg/dL (60-115); Potassium 3.6 mmol/L (3.3-5.1); Sodium 141 mmol/L (135-145); Total Protein 8.1 g/dL (6.5-8.0)
--- OUTSIDE RECORDS SUMMARY | 2024-11-14 17:19 | XMS_ITS | Encounter Summary ---
Author Organization [facility] Address [address] [place] [address] Care Team Providers Care Gang Knife Fish Chopper Name Role Phone Cynthia Sweet MD Primary Care Provider [phone] Reason for Visit * Reason Onset Date Comments lab work 10/13/2024 Encounter Details Date Type Department Care Team (Late st Contact Info) Description 10/13/2024 Telephone Endocrinology - [place] [address] [place] [address] Gemma Ferris PA [address] [place] [address] lab work Social History Tobacco Use Types Packs/Day Years Used Date Smoking Tobacco: Former Cigarettes Q uit: 07/20/2018 Smokeless Tobacco: Never Alcohol Use Standard Drinks/Week Comments No 0 (1 standard drink = 0.6 oz pur e alcohol) Housing Instability Answer Date Recorde d Are you worried that in the next 2 months you may not have stable housing? No 09/07/2024 Food Access & Nutrition Answer Date Rec orded Do you have access to a vari ety of food including fruits and vegetables? Yes 09/07/2024 Access to Healthcare Answer Date Record ed Within the last 3 months, ho w many times did you visit the emergency department for your medical care? 0 09/07/2024 Health Literacy Answer Date Recorded How often do you need to hav e someone help you when you read instructions, pamphlets, or other written material from your doctor or pharmacy? Never 09/07/2024 Caregiver: How often do you need to have someone help you when you read instructions, pamphlets, or other written material from your doctor or pharmacy? Not on file 09/07/2024 Financial Risk Answer Date Recorded How hard is it for you to pa y for the very basics like food, housing, medical care, and air conditioning / heating? Somewhat hard 09/07/2024 Transportation Answer Date Recorded Has the lack of transportati on kept you from meetings, work, or from getting things needed for daily living? No Has the lack of transportati on kept you from medical appointments or from getting medications? No 09/07/2024 Social Isolation Answer Date Recorded How often do you feel lonely or isolated from those around you? Sometimes 09/07/2024 Food Risk Answer Date Recorded Within the past 12 months we worried whether our food would run out before we got money to buy more. Sometimes true 025 Within the past 12 months th e food we bought just didn't last and we didn't have money to get more. Sometimes true 09/07/2024 Dependent Care Answer Date Recorded Do you need help finding or paying for care for your loved ones. For example, children's tutor nursery or elderly care for an older adult? No 09/07/2024 Education Answer Date Recorded Do you think completing more education or training, like finishing a GED, going to college, or learning a trade, would be helpful for you? Patient declined 09/07/2024 Employment and Income Answer Date Recor ded During the last four weeks, have you been actively looking for work? No 09/07/2024 Living Situation Answer Date Recorded What is your living situation? 0 09/07/2024 Interpersonal Safety Answer Date Record ed Physical Abuse 07/22/2024 Verbal Abuse 07/22/2024 Comments No Sex and Gender Information Value Date Recorded Sex Assigned at Female 07/06/2024 9:16 AM EST Legal Sex Female 4:12 AM EST Gender Identity Female 07/06/2024 9:16 AM EST Sexual Orientation Straight 07/06/2024 9: 16 AM EST documented as of this encounter Progress Notes * Irene Ozuna RN - 10/14/2024 2:28 PM EDT Will answer in result management * Arianne Melendrez - 10/14/2024 1:28 PM EDT Patient is returning missed call from Irene. [phone] * Irene Ozuna RN - 10/14/2024 1:21 PM EDT Will answer in result management * Arianne Melendrez - 10/13/2024 1:29 PM EDT Patient is returning missed call from Irene re: lab work. She can be reached at [phone] documented in this encounter Plan of Treatment Upcoming Encounters Date Type Department Care Team (Late st Contact Info) Description 11/15/2024 3:30 PM EDT Office Visit Adult Medicine [address] [phone] Amber Jacobson PA [address] [place], [place] 04/14/2025 7:30 AM EDT Office Visit Endocrinology [address] [phone] Gemma Ferris PA [address] [place] [address] documented as of this encounter Visit Diagnoses Not on filedocumented in this encounter Additional Health Concerns Assessment Noted Time PHQ-9 Depression Total Score: 9 09/07/19 25 7:35 AM EST documented as of this encounter Care Teams Gang Knife Fish Chopper Relationship Specialty Start Date End Date Cynthia Sweet MD [address] [place] [address] PCP - General Internal Medicine 06/22/24 documented as of this encounter
--- OUTSIDE RECORDS SUMMARY | 2024-11-14 17:19 | XMS_ITS | Clinical Summary ---
Author Organization [facility] Address [address] [place] [address] Care Team Providers Care Control And Recovery Special Tactics Name Role Phone Jackie Corbett MD Primary Care Provider Social History Tobacco Use Types Packs/Day Years Used Date Smoking Tobacco: Never Assessed Sex and Gender Information Value Date Recorded Sex Assigned at Not on file Gender Identity Not on file Sexual Orientation Not on file Plan of Treatment Health Maintenance Due Date Last Done Comments Hepatitis B Vaccines (1 of 3 - 3-dose series) 1966 Hepatitis C Screening 1966 COVID-19 Vaccine (#1) 1966 Depression Screening 1978 Preventative Health Evaluation 1984 DTap / Tdap / Td (1 - Tdap) 1985 Cervical Cancer Screening (P ap Smear) 1987 Colon Cancer Screening (Colonoscopy) 2011 Breast Cancer Screening (Mammogram) 2016 Shingrix-Zoster Vaccine (1 of 2) 2016 Influenza Vaccine (#1) 2024 Pneumococcal Vaccine Aged Out 12/04/2017 No long er eligible based on patient's age to complete this topic RSV Ped < 20 months Aged Out No longe r eligible based on patient's age to complete this topic Care Teams Control And Recovery Special Tactics Relationship Specialty Start Date End Date [place]-Jackie Escobar MD PCP - General Internal Medicine 03/27/20
--- OUTSIDE RECORDS SUMMARY | 2024-11-14 17:19 | XMS_ITS | Clinical Summary ---
Author Organization [facility] Address [address] [place] [address] Phone Care Team Providers Care Healthcare Liaison Name Role Phone Cynthia Sweet MD Primary Care Provider [phone] Allergies Active Allergy Reactions Criticality Noted Date Comments Bee Venom Protein (Honey Bee) Anaphylaxis High 06/09/2024 Duloxetine Hcl Hallucinations Medium 09/10/2016 Suicidal ideation Insulin Glargine Hives Medium 06/18/2020 Itching, cough, hives, throat symptoms, angioedema Latex Dermatitis Low 01/08/2018 Contact dermatitis Methotrexate Inflammation Medium 06/12/2020 Eyelid swelling, cough Other Anaphylaxis High 06/18/2020 Preservatives in insulin pens Sarilumab 06/18/2020 Kevzara-injection site reaction Semaglutide GI intolerance Low 11/30/2019 Medications blood-glucose sensor (Dexcom G6 Sensor) device 1 Device by Does not apply route See Admin Instructions. Change sensors every 10 days 04/21/20 24 Active dicyclomine (BENTYL) 10 mg capsule TAKE 1 CAPSULE BY MOUTH FOUR TIMES A DAY 04/11/20 24 Active arm brace (WRIST BRACE MISC) 1 Units by Does not apply route daily. 03/23/20 24 Active ondansetron (ZOFRAN) 4 mg tablet Take 1 tablet (4 mg total) by mouth every 8 (eight) hours if needed. 03/15/20 24 Active betamethasone, augmented, (DIPROLENE-AF) 0.05 % cream APPLY A THIN LAYER TWICE DAILY FOR 2 WEEKS. 01/18/20 24 Active blood-glucose transmitter (Dexcom G6 Transmitter) device 1 Device by Does not apply route See Admin Instructions. Change transmitter every 3 months. 01/01/20 24 Active lancets 33 gauge misc 1 Each by Does not apply route 3 times daily. To check BS 03/27/20 23 Active blood sugar diagnostic (FreeStyle Lite Strips) test strip Use to check BS 3 times a day 11/18/19 23 Active SUMAtriptan (IMITREX) 100 mg tablet Take 1 Tablet by mouth daily as needed. May repeat dose once after 2 hours, if needed. Active budesonide-form oteroL (SYMBICORT) 160-4.5 mcg/actuation inhaler Inhale 2 Puffs into the lungs 2 times daily. Active infusion set for insulin pump (Autosoft 90) infusion set 1 Device by Does not apply route every 3 days. 04/10/20 22 Active EPINEPHrine (EpiPen 2-Calvin) 0.3 mg/0.3 mL injection PLEASE SEE ATTACHED FOR DETAILED DIRECTIONS 09/12/19 22 Active glucagon (Baqsimi) 3 mg/actuation nasal spray 1 Dose by Nasal route as needed for Other (sever hypoglycemia). 08/29/19 22 Active lactose-reduced food (NUTRITIONAL SUPPLEMENT ORAL) Nutritional Supplements (Glucose Management) Tab Take 4 Tablets by mouth as needed for Other (low blood sugar) 08/29/19 22 Active naltrexone (DEPADE) 50 mg tablet Take 50 mg by mouth daily. Active lurasidone (LATUDA) 40 mg tablet Take 40 mg by mouth daily. 03/14/20 21 Active ramelteon (ROZEREM) 8 mg tablet Take 8 mg by mouth at bedtime. Active topiramate (TOPAMAX) 100 mg tablet Take 100 mg by mouth 2 times daily. Active albuterol HFA (ProAir HFA) 90 mcg/actuation inhaler Inhale 2 Puffs into the lungs 4 times daily as needed for Cough or Wheezing. 07/20/19 21 Active albuterol 2.5 mg /3 mL (0.083 %) nebulizer solution Take 1 Vial by nebulization every 4 hours as needed for Wheezing for up to 180 days. 05/29/20 20 Active polyethylene glycol (Golytely) 236-22.74-6.74 -5.86 gram solution Take 4L by mouth once for one dose. May substitue any PEG. Starting at 6PM the night before your procedure drink 1 8oz glasses at your own pace until you complete half of the gallon. Finish 2nd half of the gallon 5 hours before your procedure. 4000 mL 06/01/20 24 Active amitriptyline (ELAVIL) 100 mg tablet Take 1 tablet (100 mg total) by mouth. at bedtime for 30 days 03/08/20 24 Active hydrOXYzine HCL (ATARAX) 25 mg tablet Take 1 tablet (25 mg total) by mouth 2 (two) times a day if needed. 05/10/20 24 Active pravastatin (PRAVACHOL) 40 mg tablet Take 1 tablet (40 mg total) by mouth 1 (one) time each day. 05/12/20 24 Active rizatriptan (MAXALT) 10 mg tablet TAKE 1 TAB AT ONSET OF MIGRAINE EVERY 4 HOURS UP TO 2 PER 24 HOURS DIRECTED 04/19/20 24 Active sucralfate (CARAFATE) 100 mg/mL suspension Take 10 mL (1 g total) by mouth. 03/30/20 24 Active gabapentin (NEURONTIN) 100 mg capsuleIndicati ons:Type 2 diabetes mellitus with other diabetic neurological complication (CMS/HCC V24, CMS/[facility] V28) Take 1 capsule by mouth twice daily. TAKE IN ADDITION TO 300MG TWICE DAILY NEEDED 180 capsule 06/23/20 24 Active famotidine (PEPCID) 20 mg tablet TAKE 1 TABLET BY MOUTH TWICE A DAY 180 tablet 1 07/10/20 24 Active gabapentin (NEURONTIN) 400 mg capsule Take 1 capsule (400 mg total) by mouth at bedtime. Active gabapentin (NEURONTIN) 300 mg capsuleIndicati ons:Type 2 diabetes mellitus with other diabetic neurological complication (CMS/HCC V24, CMS/HCC V28) TAKE 1 CAPSULE BY MOUTH TWICE A DAY 180 capsule 1 08/03/19 25 Active meloxicam (MOBIC) 15 mg tablet TAKE 1 TABLET (15 MG TOTAL) BY MOUTH ONCE DAILY FOR 14 DAYS 30 tablet 09/22/19 25 Active insulin lispro (HumaLOG KwikPen) 100 unit/mL injection pen Inject 3 times a day with meals per sliding scale: 120-150: 2 units; 150-200: 4 units; 201-250: 6 units; 251-300: 8 units; 300-350: 10 units; 351-400: 12 units - Subcutaneous, when not using insulin pump. Max daily dose 40 units 15 mL 09/06/19 Active insulin lispro 100 unit/mL injection -Administer within 15 minutes of a mealInject 120 Units as directed See Admin Instructions. UP TO 120 UNITS DAILY VIA INSULIN PUMP 30 mL 09/06/19 Active pen needle, diabetic 32 gauge x needle Use 4 times a day with insulin 100 each 10/13/19 25 Active omeprazole (PriLOSEC) [address] capsule TAKE 1 CAPSULE BY MOUTH 2 TIMES DAILY (BEFORE MEALS). 180 capsule 1 10/20/19 25 Active omeprazole (PriLOSEC) [address] capsule TAKE 1 CAPSULE BY MOUTH 2 TIMES DAILY (BEFORE MEALS). 03/30/20 24 2024 Discontinued Active Problems Problem Noted Date Diagnosed Date Mass of left wrist 06/21/2024 De Quervain's tenosynovitis 06/21/2024 IBS (irritable bowel syndrome) 05/03/2024 History of drug use 05/03/2024 Overview (05/03/2024): H/o opioid withdrawal Insulin pump in place 05/24/2021 Anxiety 03/16/2021 DM (diabetes mellitus), type 2 with neurological complications ([facility] V24, [facility] V28) 02/04/2021 Allergic rhinoconjunctivitis 06/18/2020 Kidney stone 10/28/2019 Episode of moderate major de pression ([facility] V24, [facility] V28) 10/03/2019 Rheumatoid arthritis ([facility] V24, [facility] V28) 10/03/2019 Overview (05/03/2024): Follows with Dr. Jo at [facility]. Medication free remission since 2020 Elevated TSH 08/18/2018 CTS (carpal tunnel syndrome) 02/24/2018 Depression 02/24/2018 Fibromyalgia 02/24/2018 Vitamin D deficiency 02/24/2018 Abnormal Pap smear of cervix 01/18/2018 Overview (05/03/2024): 12/2017 PAP Cytology neg, + HPV, (16/18 neg) Per [facility]- repeat co-testing one year 01/11/2019 PAP Moderate asthma 01/08/2018 Convulsive disorder ([facility] V24, [facility] [place]) 0 12/04/2017 Hypertension 11/28/2015 Insomnia 01/02/2015 Hemorrhoids 11/01/2013 Herpes zoster 10/25/2013 Hyperlipidemia 02/18/2011 Encounters Date Type Department Care Team Description 10/13/2024 Telephone Endocrinology - [address] [phone] Gemma Ferris PA lab work 10/12/2024 7:30 AM EDT Office Visit Endocrinology [address] [phone] Gemma Ferris PA DM (diabetes mellitus), type 2 with neurological complications ([facility] V24, [facility] V28) (Primary Dx); Secondary hypertension; Hyperlipidemia, unspecified hyperlipidemia type 09/08/2024 8:15 AM EST Office Visit Orthopedic Surgery - [place] [address] [place] [address] Everett Suazo MD Post-operative state (Primary Dx) 09/05/2024 Telephone Endocrinology [address] [phone] Gemma Ferris PA Medication Problem from Last 3 Months Immunizations Name Administration Dates Next Due Moderna SARS-CoV-2 COVID-19, mRNA, LNP-S, preservative free 09/14/2020,08/14/2020 Pneumococcal conjugate 13 va lent (Prevnar 13, PCV13) 2mo and older 12/04/2017 Surgical History Surgery Date Site/Laterality Comments CARPAL TUNNEL RELEASE PROCEDURE: SC NEUROPLASTY &/TRANSPOS MEDIAN NRV CARPAL TUNNE SECTION PROCEDURE: [place] DELIVERY ONLY PARTIAL HYSTERECTOMY 2007 PROCEDURE: SC SUPRACERVICAL ABDL HYSTER W/WO RMVL TUBE OVARY SALPINGOOPHORECTOMY Left PROCEDURE: SC LAPAROSCOPY W/RMVL ADNEXAL STRUCTURES OTHER SURGICAL HISTORY PROCEDURE: HISTORY OTHER; COMMENT: craniotomy -elevation of skull frature fragments WRIST SURGERY 07/22/2024 Left dorsal compartment release & excision of ganglion cyst Medical History Medical History Date Comments Arthritis DX:Arthritis Carpal tunnel syndrome DX:Carpal tunnel syndrome IBS (irritable bowel syndrome) D X:IBS (irritable bowel syndrome) Fibromyalgia DX:Fibromyalgia History of drug use DX:History o f drug use; COMMENT: h/o opioid withdrawal Incompetent cervix DX:Incompeten t cervix; COMMENT: multiple deliveries Depression 02/24/2018 DX:Depression Vitamin D deficiency 02/24/2018 DX:Vitamin D deficiency Abnormal Pap smear of cervix 01/18/2018 DX: Abnormal Pap smear of cervix; COMMENT: 12/2017 PAP Cytology neg, + HPV, ( neg) Per [facility]- repeat co-testing one year Convulsive disorder ([facility] V24, [facility] V28) 12/04/2017 DX:Convulsive disorder (HCC) Moderate asthma 01/08/2018 DX:Moderate asth ma Insomnia 01/02/2015 DX:Insomnia Hyperlipidemia 02/18/2011 DX:Hyperlipidemi a Hypertension 11/28/2015 DX:Hypertension Rheumatoid arthritis ([facility]/ C V24, [facility] V28) 10/03/2019 DX:Rheumatoid arthritis (HCC ) Kidney stone 10/28/2019 DX:Kidney stone Anxiety 03/16/2021 DX:Anxiety DM (diabetes mellitus), type 2 with renal complications (CMS/HCC V24, CMS/[facility] V28) 02/04/2021 DX:DM (diabetes mellitus), t ype 2 with renal complications (HCC) DM (diabetes mellitus), type 2 with neurological complications (CMS/HCC V24, [facility] V28) 02/04/2021 DX:DM (diabetes mellitus), t ype 2 with neurological complications (HCC) Insulin pump in place 05/24/2021 DX:Insulin pump in place Family History Medical History Relation Name Comments Asthma Daughter Other: allergic rhinitis Daughter Other: heart attack Father Asthma Mother Diabetes Mother hypertension, f ibromyalgia, ovarian cancer Other: allergic rhinitis Mother Other: deceded Mother Stroke Mother Asthma Sister 1 Breast cancer Sister 1 Diabetes Sister 1 Stroke Sister 1 Breast cancer Sister 2 Asthma Son 1 Eczema Son 1 Asthma Son 2 Relation Name Status Comments Daughter Father Alive Mother Alive Sister 1 Alive Sister 2 Son 1 Son 2 Social History Tobacco Use Types Packs/Day Years Used Date Smoking Tobacco: Former Cigarettes Q uit: 07/20/2018 Smokeless Tobacco: Never Tobacco Cessation:Counseling Given: Not Answered Alcohol Use Standard Drinks/Week Comments No 0 [...] care for your loved ones. For example, child caregiver or elderly care for an older adult? [...] Orientation Straight 07/06/2024 9: 16 AM EST Obstetrics History Last Filed Vital Signs Vital Sign Reading Time Taken Comments Blood Pressure 122/71 07/22/2024 10:00 AM EST Pulse 68 07/22/2024 10:00 AM EST Temperature 35.9 ??C (96.7 ??F) 07/22/2024 9:24 AM ES T Respiratory Rate 18 07/22/2024 10:00 AM EST Oxygen Saturation 94% 07/22/2024 9:24 AM EST Inhaled Oxygen Concentration - - Weight 79.4 kg (175 lb) 09/08/2024 8:25 AM EST Height 157.5 cm (5' 2 ) 09/08/2024 8:25 AM EST Body Mass Index 32.01 09/08/2024 8:25 AM EST Plan of Treatment Upcoming Encounters Date Type Department Care Team (Late st Contact Info) Description 11/15/2024 3:30 PM EDT Office Visit Adult Medicine [address] [phone] Amber Jacobson PA [address] [place], [place] 04/14/2025 7:30 AM EDT Office Visit Endocrinology [address] [phone] Gemma Ferris PA [address] [place] [address] Health Maintenance Due Date Last Done Comments DTaP,Tdap,and Td Vaccines (1 - Tdap) 1985 Hepatitis B Vaccines (1 of 3 - 19+ 3-dose series) 1985 Zoster Vaccines (1 of 2) 2016 Pneumococcal Vaccine: 50+ Years (2 of 2 - PPSV23) 01/29/2018 12/04/2017 Pneumococcal Vaccine: Pediatrics (0 to 5 Years) and At-Risk Patients (6 to 64 Years) (2 of 2 - PPSV23) 01/29/2018 12/04/2017 Breast Cancer Screening 12/31/2019 12/30/2017 COVID-19 Vaccine (3 - Modern a risk series) 10/12/2020 09/14/2020, 08/14/2020 Cervical Cancer Screening: HPV 01/12/2024 01/11/2019 Diabetes: Annual Foot Exam 06/09/2024 06/09/2023 Influenza Vaccine (Season Ended) 2025 Diabetes: Blood Sugar Contro l Test (HGBA1C) 04/14/2025 10/12/2024, 01/14/2024, 01/14/2024 Diabetes: Annual Retina Eye Exam 06/07/2025 06/07/2024, 06/02/2023 Depression Screening 09/07/2025 09/07/2024, 03/23/2024 Social Influencers of Health Screening 09/07/2025 09/07/2024 Diabetes: Annual Urine Albumin-Creatinine Ratio (uACR) 10/12/2025 10/12/2024, 01/14/2024 Diabetes: Annual GFR (Glomerular Filtration Rate) 10/12/2025 10/12/2024, 01/14/2024, 01/14/2024 Hypertension/CHF/CAD Annual BMP Blood Test 10/12/2025 10/12/2024, 01/14/2024, 01/14/2024 Colorectal Cancer Screening: Colonoscopy 06/15/2029 06/15/2024, 01/31/2019 Cholesterol Screening (Lipid Panel) 10/12/2029 10/12/2024, 01/14/2024, 01/14/2024 HIV Screening Completed 01/11/2019 Hepatitis C Screening Completed 01/11/2019 HIB Vaccines Aged Out No longer eligi ble based on patient's age to complete this topic HPV Vaccines Aged Out No longer eligi ble based on patient's age to complete this topic Hepatitis A Vaccines Aged Out No long er eligible based on patient's age to complete this topic IPV Vaccines Aged Out No longer eligi ble based on patient's age to complete this topic MMR Vaccines Aged Out No longer eligi ble based on patient's age to complete this topic Meningococcal ACWY Vaccine Aged Out N o longer eligible based on patient's age to complete this topic Meningococcal B Vaccine Aged Out No l onger eligible based on patient's age to complete this topic RSV Immunization Patients Under 20 months Aged Out No longer eligible b ased on patient's age to complete this topic Varicella Vaccines Aged Out No longer eligible based on patient's age to complete this topic Procedures Procedure Name Priority Date/Time Associated Diagnosis Comments HEMOGLOBIN A1C Routine 10/12/2024 8:23 AM EDT DM (diabetes mellitus), type 2 with neurological complications (CMS/HCC V24, CMS/HCC V28) BASIC METABOLIC PANEL Routine 10/12/2024 8:23 AM EDT DM (diabetes mellitus), type 2 with neurological complications (CMS/HCC V24, CMS/HCC V28) LIPID PANEL WITH REFLEX TO DIRECT LDL Routine 10/12/2024 8:23 AM EDT DM (diabetes mellitus), type 2 with neurological complications (CMS/HCC V24, CMS/HCC V28) MICROALBUMIN CREATININE URINE RATIO Routine 10/12/2024 8:23 AM EDT DM (diabetes mellitus), type 2 with neurological complications (CMS/HCC V24, CMS/HCC V28) COLONOSCOPY Routine 06/15/2024 8:38 AM EST Family history of malignant neoplasm of digestive organs EXTERNAL DIABETIC RETINA EYE EXAM 06/07/2024 HM DEPRESSION SCREENING Routine 03/23/2024 DIABETES FOOT EXAM Routine 06/09/2023 HM HPV Routine 01/11/2019 HEPATITIS C SCREENING Routine 01/11/2019 HIV SCREENING Routine 01/11/2019 [facility] SCREENING DIGITAL Routine 12/30/2017 2:34 PM EDT Encounter for screening mammogram for malignant neoplasm of breast from Last 3 Months or Most Recently Relevant to Health Maintenance Results * (ABNORMAL) Lipid panel with reflex to direct LDL (10/12/2024 8:23 AM EDT) Cholesterol 239(H) 0 - 200 mg/dL LAB CHEMISTRY METHOD 10/12/2024 11:32 AM EDT [facility] Triglycerides 288(H) 0 - 150 mg/dL LAB CHEMISTRY METHOD 10/12/2024 11:32 AM EDT [facility] HDL 40 >=40 mg/dL LAB CHEMISTRY METHOD 10/12/2024 11:32 AM EDT [facility] LDL Calculated 141(H) 0 - 100 mg/dL LAB CHEMISTRY METHOD 10/12/2024 11:32 AM EDT [facility] VLDL Cholesterol Nino 57.6 mg/dL LAB CHEMISTRY METHOD 10/12/2024 11:32 AM EDT [facility] Non HDL Chol. (LDL+VLDL) 199(H) <145 mg/dL LAB CHEMISTRY METHOD 10/12/2024 11:32 AM EDT [facility] Chol/HDL Ratio 6.0(H) 0.0 - 4.4 LAB CHEMISTRY METHOD 10/12/2024 11:32 AM EDT [facility] Blood Venous blood specimen / Unknown Venipuncture / Unknown 10/12/2024 8:23 AM EDT 10/12/2024 8:23 AM EDT us Gemma MONTALVO LAB BLOOD ORDERABLES Final Result [facility] [address] [place] [address], * Microalbumin creatinine urine ratio (10/12/2024 8:23 AM EDT) Creatinine, Urine 156.0 mg/dL LAB CHEMISTRY METHOD 10/12/2024 1:39 PM EDT [facility] Microalb, Ur 14.0 0.0 - 29.0 mg/L LAB CHEMISTRY METHOD 10/12/2024 1:39 PM EDT [facility] Microalb/Creat Ratio 9 <30 mg/g creat LAB CHEMISTRY METHOD 10/12/2024 1:39 PM EDT [facility] Urine Urine specimen from urethra / Unknown Non-blood Collection / Unknown 10/12/2024 8:23 AM EDT 10/12/2024 8:23 AM EDT Gemma MONTALVO LAB URINE ORDERABLES Final Result [facility] [address] [place] [address], [place] [phone] * (ABNORMAL) Hemoglobin A1c (10/12/2024 8:23 AM EDT) Pathologist [facility] Hemoglobin A1C 6.5(H) <6.5 % LAB CHEMISTRY METHOD 10/12/2024 2:27 PM EDT [facility] Mean Bld Glu Estim. 140 mg/dL LAB CHEMISTRY METHOD 10/12/2024 2:27 PM EDT [facility] Blood Venous blood specimen / Unknown Venipuncture / Unknown 10/12/2024 8:23 AM EDT 10/12/2024 8:23 AM EDT us Gemma MONTALVO LAB BLOOD ORDERABLES Final Result [facility] [address] [place] [address], [place] [phone] * (ABNORMAL) Basic metabolic panel (10/12/2024 8:23 AM EDT) Sodium 138 133 - 145 mmol/L LAB CHEMISTRY METHOD 10/12/2024 11:31 AM [facility] Potassium 4.5 3.5 - 5.5 mmol/L LAB CHEMISTRY METHOD 10/12/2024 11:31 AM [facility] Chloride 103 96 - 110 mmol/L LAB CHEMISTRY METHOD 10/12/2024 11:31 AM [facility] CO2 30 21 - 32 mmol/L LAB CHEMISTRY METHOD 10/12/2024 11:31 AM [facility] Anion Gap 5 3 - 11 LAB CHEMISTRY METHOD 10/12/2024 11:31 AM [facility] Glucose 131(H) 70 - 100 mg/dL LAB CHEMISTRY METHOD 10/12/2024 11:31 AM [facility] BUN 12 5 - 25 mg/dL LAB CHEMISTRY METHOD 10/12/2024 11:31 AM [facility] Creatinine 0.71 0.50 - 1.10 mg/dL LAB CHEMISTRY METHOD 10/12/2024 11:31 AM [facility] eGFR 99 >=60 mL/min/1. 73m2 LAB CHEMISTRY METHOD 10/12/2024 11:31 AM [facility] Comment:Calculation based on the??Chronic Kidney Disease Epidemiology Collaboration (CKD-EPI) equation refit??without adjustment for race. BUN/Creatinine Ratio 16.9 LAB CHEMISTRY METHOD 10/12/2024 11:31 AM [facility] Calcium 9.5 8.5 - 10.5 mg/dL LAB CHEMISTRY METHOD 10/12/2024 11:31 AM [facility] Blood Venous blood specimen / Unknown Venipuncture / Unknown 10/12/2024 8:23 AM EDT 10/12/2024 8:23 AM EDT us Gemma MONTALVO LAB BLOOD ORDERABLES Final Result [facility] [address] [place] [address], * COLONOSCOPY Anesthesia - MAC; [facility] ENDOSCOPY (06/15/2024 8:38 AM EST) Anatomical Region Laterality Modality Other 06/15/2024 8:15 AM EST Impressions 06/15/2024 8:38 AM EST - Internal hemorrhoids. ? - Diverticulosis in the ascending colon. ? - One 3 mm polyp in the cecum, removed with a cold ? snare. Resected and retrieved. Recommendation: ?- Repeat colonoscopy in 5 years for surveillance. ? - Use fiber, for example Citrucel, Fibercon, Konsyl or ? Metamucil. Narrative 06/15/2024 8:38 AM EST [facility] Patient Name: Neisha Gutierrez Procedure Date: 06/15/2024 8:15 AM Date of : 1965 Age: 58 Gender: Female Note Status: Finalized Attending MD: Marco Hagan MD, Procedure Date No Time: 06/15/2024 Procedure: ? Colonoscopy Indications: ? Screening for colorectal malignant neoplasm Providers: ? Marco Hagan MD Referring MD: ?Marco Hagan MD Medicines: ? Propofol per Anesthesia Complications: ? No immediate complications. Estimated Blood Loss: ? Estimated blood loss was minimal. Procedure: ? Pre-Anesthesia Assessment: ? - ASA Grade Assessment: II - A patient with mild ? systemic disease. ? After I obtained informed consent, the scope was ? passed under direct vision. Throughout the procedure, ? the patient's blood pressure, pulse, and oxygen ? saturations were monitored continuously.The ? Colonoscope was introduced through the anus and ? advanced to the cecum, identified by appendiceal ? orifice and ileocecal valve. The colonoscopy was ? performed without difficulty. The patient tolerated ? the procedure well. The quality of the bowel ? preparation was good. Findings: ?The perianal and digital rectal examinations were ? normal. ? Internal hemorrhoids were found during endoscopy. The ? hemorrhoids were Grade I (internal hemorrhoids that do ? not prolapse). ? A few diverticula were found in the ascending colon. ? A 3 mm polyp was found in the cecum. The polyp was ? sessile. The polyp was removed with a cold snare. ? Resection and retrieval were complete. Estimated blood ? loss was minimal. Procedure Code(s): ? --- Professional --- ? 12657, Colonoscopy, flexible; with removal of ? tumor(s), polyp(s), or other lesion(s) by snare ? technique Diagnosis Code(s): ? --- Professional --- ? Z12.11, Encounter for screening for malignant neoplasm ? of colon ? K64.0, First degree hemorrhoids ? D12.0, Benign neoplasm of cecum ? K57.30, Diverticulosis of large intestine without ? perforation or abscess without bleeding CPT copyright 2020 [employer]. All rights reserved. The codes documented in this report are preliminary and upon surgical coder review may be revised to meet current compliance requirements. Marco Hagan MD 06/15/2024 8:38:50 AM This report has been signed electronically.Marco Hagan MD Number of Addenda: 0 Note Initiated On: 06/15/2024 8:15 AM Scope In: Scope Out: ? Endoscopy Department at [facility] - [address] [place] [address], ? [place] [address] Procedure Note Marco Hagan MD - 06/15/2024 [facility] GI Patient Name: Neisha Gutierrez Procedure Date: 06/15/2024 8:15 AM Date of : 1965 Age: 58 Gender: Female Note Status: Finalized Attending MD: Marco Hagan MD, Procedure Date No Time: 06/15/2024 Procedure: Colonoscopy Indications: Screening for colorectal malignant neoplasm Providers: Marco Hagan MD Referring MD: Marco Hagan MD Medicines: Propofol per Anesthesia Complications: No immediate complications. Estimated Blood Loss: Estimated blood loss was minimal. Procedure: Pre-Anesthesia Assessment: - ASA Grade Assessment: II - A patient with mild systemic disease. After I obtained informed consent, the scope was passed under direct vision. Throughout theprocedure, the patient's blood pressure, pulse, and oxygen saturations were monitored continuously.The Colonoscope was introduced through the anus and advanced to the cecum, identified by appendiceal orifice and ileocecal valve. The colonoscopy was performed without difficulty. The patient tolerated the procedure well. The quality of the bowel preparation was good. Findings: The perianal and digital rectal examinations were normal. Internal hemorrhoids were found during endoscopy.The hemorrhoids were Grade I (internal hemorrhoids thatdo not prolapse). A few diverticula were found in the ascendingcolon. A 3 mm polyp was found in the cecum. The polyp was sessile. The polyp was removed with a cold snare. Resection and retrieval were complete. Estimatedblood loss was minimal. Procedure Code(s): --- Professional --- 35332, Colonoscopy, flexible; with removal of tumor(s), polyp(s), or other lesion(s) by snare technique Diagnosis Code(s): --- Professional --- Z12.11, Encounter for screening for malignantneoplasm of colon K64.0, First degree hemorrhoids D12.0, Benign neoplasm of cecum K57.30, Diverticulosis of large intestine without perforation or abscess without bleeding CPT copyright 2020 [employer]. All rights reserved. The codes documented in this report are preliminary and upon surgical coder reviewmay be revised to meet current compliance requirements. Marco Hagan MD 06/15/2024 8:38:50 AM This report has been signed electronically.Marco Hagan MD Number of Addenda: 0 Note Initiated On: 06/15/2024 8:15 AM Scope In: Scope Out: Endoscopy Department at [facility] - [address] [place] [id number] IMPRESSION: - Internal hemorrhoids. - Diverticulosis in the ascending colon. - One 3 mm polyp in the cecum, removed with a cold snare. Resected and retrieved. Recommendation: - Repeat colonoscopy in 5 years for surveillance. - Use fiber, for example Citrucel, Fibercon, Konsylor Metamucil. Result [facility] Marco Hagan MD GI~PROCEDURE ORDERABLES Final Re sult * External Diabetic Retina Eye Exam Report (06/07/2024) Anatomical Region Laterality Modality Ultrasound Provider Onbase IMG US PROCEDURES Final Resul t * Depression Screening (03/23/2024) Pathologist [facility] Depression Screening abstracted Historical Provider HEALTH MAINTENANCE Final Result * Diabetes Foot Exam (06/09/2023) [facility] Diabetes: Annual Foot Exam abstracted Result [facility] Historical Provider HEALTH MAINTENANCE Final Result * Cervical Cancer Screening: HPV (01/11/2019) Pathologist [facility] Cervical Cancer Screening: HPV negative, abstracted Result [facility] Historical Provider HEALTH MAINTENANCE Final Result * HIV Screening (01/11/2019) HIV Screening abstracted us Historical Provider HEALTH MAINTENANCE Final Result * Hm Hepatitis C Screening (01/11/2019) HM Hepatitis C Screening abstracted us Historical Provider HEALTH MAINTENANCE Final Result * REYNA SCREENING DIGITAL (12/30/2017 2:34 PM EDT) Anatomical Region Laterality Modality Mammography 12/30/2017 8:07 AM EDT Narrative 12/30/2017 2:34 PM EDT [facility] Diagnostic Imaging Department [address] [place] [address] Patient: ??NEISHA GUTIERREZ ?/Age/Sex: 1965 - 52 - F Unit#: ??[id number] ? Location/Status: ??SPDIMAM/REG CLI ? Mnemonic/Ordering Site: ??DIGSC/SPMAM Ordering Physician: ??YONG ROLLE MD Reyna Screening Digital - 12/30/17843 EXAM: Reyna Screening Digital EXAM DATE AND TIME: 12/30/2017 8:46 AM HISTORY: ??Screening. Multiple family members with breast carcinoma including mother, age 38, sister, age 26, and maternal aunt, at age 40. COMPARISON: ??12/07/09 ([facility], [place]) TECHNIQUE: CC and MLO views of both breasts were obtained using full field digital mammography. Bilateral digital breast tomosynthesis was performed in the MLO projection. Computer aided detection with the [employer] 7.2-H was employed. TISSUE DENSITY: b. There are scattered areas of fibroglandular density. FINDINGS: No suspicious masses, grouped microcalcifications, or areas of architectural distortion are seen. The skin and vascularity are unremarkable. IMPRESSION: Stable mammographic appearance of the breasts. ??No evidence of malignancy is seen. A negative mammogram in the presence of a clinically suspicious palpable abnormality does not preclude the possibility of malignancy or alter the indications for biopsy. BI-RADS: ??Category 1: Negative RECOMMENDATION(S): 1: Routine screening mammogram BILATERAL in 1 year. [address]7515, 68150 3341F, 7083F Dictating Physician: ??SKYE BARLOW MD Electronically Signed by: ??SKYE BARLOW MD Dic Date/Time: ??12/30/17 1433 Sign date/Time: ??12/30/17 1434 Procedure Note Skye Barlow MD - 07/08/2022 [facility] Diagnostic Imaging Department [address] [place] [id number] Patient: NEISHA GUTIERREZ./Age/Sex: 1965 - 52 - F Unit#: [id number] [facility]Ordering Site: [facility] Ordering Physician: YONG ROLLE MD Reyna Screening Digital - 12/30/17 - 0844 EXAM: [facility] Screening Digital EXAM DATE AND TIME: 12/30/2017 8:46 AM HISTORY: Screening. Multiple family members with breast carcinomaincluding mother, age 38, sister, age 26, and maternal aunt, at age 40. COMPARISON: 12/07/09 ([facility], [place], [place]) TECHNIQUE: CC and MLO views of both breasts were obtained using fullfield digital mammography. Bilateral digital breast tomosynthesis was performedin the MLO projection. Computer aided detection with the [employer] employed. TISSUE DENSITY: b. There are scattered areas of fibroglandular density. FINDINGS: No suspicious masses, grouped microcalcifications, or areas ofarchitectural distortion are seen. The skin and vascularity are unremarkable. IMPRESSION: Stable mammographic appearance of the breasts. No evidence of malignancyis seen. A negative mammogram in the presence of a clinically suspicious palpable abnormality does not preclude the possibility of malignancy or alter the indications for biopsy. BI-RADS: Category 1: Negative RECOMMENDATION(S): 1: Routine screening mammogram BILATERAL in 1 year. 61237, 72685 3341F, 7025F Dictating Physician: SKYE BARLOW MD Electronically Signed by: SKYE BARLOW MD Dic Date/Time: 12/30/17 1433 Sign date/Time: 12/30/17 1434 Yong Rolle MD IMG BI PROCEDURES Final Resu lt from Last 3 Months or Most Recently Relevant to Health Maintenance Insurance [facility] Advance Directives * Full Code - Default (Latest Code Status on File) Date Activated Date Inactivated Comments 07/22/2024 7:10 AM 07/22/2024 1:30 PM This is order is used when code status has not been discussed with the patient, or code status is otherwise unknown/unconfirmed To update the patient's code status, place a code status order. Do not modify or discontinue any currently active code status orders. Care Teams Healthcare Liaison Relationship Specialty Start Date End Date Cynthia Sweet MD [address] [place] [id number] PCP - General Internal Medicine 06/22/24
[2024-11-15 08:43] LABS: HBS Num1 1.15 mIU/mL (0-7.99); HBc Num1 0.06 S/CO (0.00-0.79); HBsAGNum1 0.32 S/CO (0.00-0.99); Hepatitis A Antibody IgM 0.11 Index (0-0.79); Hepatitis B Core Antibody Nonreactive (Nonreactive); Hepatitis B Surface Antigen Negative (Negative); ~HepC Num1 0.13 S/CO (0.00-0.79); ~Hepatitis A Antibody IgM Nonreactive (Nonreactive); ~Hepatitis B Surface Antibody NONREACTIVE (Nonreactive); ~Hepatitis C Antibody Nonreactive (Nonreactive)
[2024-11-16 18:08] LABS: TS Negative Control Passed; TS Panel A 0; TS Panel B 0; TS Positive Control Passed; TSpotTB Negative (Negative)
== END 2024-11-14 14:32 | disposition home or self-care (01) ==
LOC: HO.LAB 14:31
PROVIDERS: Visit Provider Student in an Organized Health Care Education/Training Program
DX: M05.9 Rheumatoid arthritis with rheumatoid factor, unspecified (principal)
CPT/HCPCS: 36415; 80053; 85025; 85652; 86140; 86481; 86704; 86706; 86709; 86803; 87340

== ENCOUNTER 2024-12-21 15:25 | Outpatient (AMB) | payer OTHER, SELFPAY ==
--- OUTSIDE RECORDS SUMMARY | 2024-12-21 15:36 | XMS_ITS | Clinical Summary ---
Author Organization [facility] Address [address] [place] [address] Phone Care Team Providers Care Tree Specialist Name Role Phone Cynthia Sweet MD Primary Care Provider [phone] Allergies Active Allergy Reactions Criticality Noted Date Comments Bee Venom Protein (Honey Bee) Anaphylaxis High 06/09/2024 Duloxetine Hcl Hallucinations Medium 09/10/2016 Suicidal ideation Insulin Glargine Hives Medium 06/18/2020 Itching, cough, hives, throat symptoms, angioedema Latex Dermatitis Low 01/08/2018 Contact dermatitis Methotrexate Inflammation Medium 06/12/2020 Eyelid swelling, cough Other Anaphylaxis High 06/18/2020 Preservatives in insulin pens Pravastatin GI intolerance 11/15/2024 Nausea, abdominal pain Sarilumab 06/18/2020 Kevzara-injection site reaction Semaglutide GI intolerance Low 11/30/2019 Medications blood-glucose sensor (Dexcom G6 Sensor) device 1 Device by Does not apply route See Admin Instructions. Change sensors every 10 days 4 Active dicyclomine (BENTYL) 10 mg capsule TAKE 1 CAPSULE BY MOUTH FOUR TIMES A DAY 4 Active arm brace (WRIST BRACE MISC) 1 Units by Does not apply route daily. 4 Active ondansetron (ZOFRAN) 4 mg tablet Take 1 tablet (4 mg total) by mouth every 8 (eight) hours if needed. 4 Active betamethasone, augmented, (DIPROLENE-AF) 0.05 % cream APPLY A THIN LAYER TWICE DAILY FOR 2 WEEKS. 4 Active blood-glucose transmitter (Dexcom G6 Transmitter) device 1 Device by Does not apply route See Admin Instructions. Change transmitter every 3 months. 4 Active lancets 33 gauge misc 1 Each by Does not apply route 3 times daily. To check BS 3 Active blood sugar diagnostic (FreeStyle Lite Strips) test strip Use to check BS 3 times a day 3 Active SUMAtriptan (IMITREX) 100 mg tablet Take 1 Tablet by mouth daily as needed. May repeat dose once after 2 hours, if needed. Active budesonide-formo teroL (SYMBICORT) 160-4.5 mcg/actuation inhaler Inhale 2 Puffs into the lungs 2 times daily. Active infusion set for insulin pump (Autosoft 90) infusion set 1 Device by Does not apply route every 3 days. 2 Active EPINEPHrine (EpiPen 2-Calvin) 0.3 mg/0.3 mL injection PLEASE SEE ATTACHED FOR DETAILED DIRECTIONS 2 Active glucagon (Baqsimi) 3 mg/actuation nasal spray 1 Dose by Nasal route as needed for Other (sever hypoglycemia). 2 Active lactose-reduced food (NUTRITIONAL SUPPLEMENT ORAL) Nutritional Supplements (Glucose Management) Tab Take 4 Tablets by mouth as needed for Other (low blood sugar) 2 Active naltrexone (DEPADE) 50 mg tablet Take 50 mg by mouth daily. Active lurasidone (LATUDA) 40 mg tablet Take 40 mg by mouth daily. 1 Active ramelteon (ROZEREM) 8 mg tablet Take 8 mg by mouth at bedtime. Active topiramate (TOPAMAX) 100 mg tablet Take 100 mg by mouth 2 times daily. Active albuterol HFA (ProAir HFA) 90 mcg/actuation inhaler Inhale 2 Puffs into the lungs 4 times daily as needed for Cough or Wheezing. 1 Active albuterol 2.5 mg /3 mL (0.083 %) nebulizer solution Take 1 Vial by nebulization every 4 hours as needed for Wheezing for up to 180 days. 0 Active polyethylene glycol (Golytely) 236-22.74-6.74 -5.86 gram solution Take 4L by mouth once for one dose. May substitue any PEG. Starting at 6PM the night before your procedure drink 1 8oz glasses at your own pace until you complete half of the gallon. Finish 2nd half of the gallon 5 hours before your procedure. 4000 mL 4 Active Additional Information Patient not taking.Reported on 11/15/2024 amitriptyline (ELAVIL) 100 mg tablet Take 1 tablet (100 mg total) by mouth. at bedtime for 30 days 4 Active hydrOXYzine HCL (ATARAX) 25 mg tablet Take 1 tablet (25 mg total) by mouth 2 (two) times a day if needed. 4 Active rizatriptan (MAXALT) 10 mg tablet TAKE 1 TAB AT ONSET OF MIGRAINE EVERY 4 HOURS UP TO 2 PER 24 HOURS DIRECTED 4 Active sucralfate (CARAFATE) 100 mg/mL suspension Take 10 mL (1 g total) by mouth. 4 Active gabapentin (NEURONTIN) 100 mg capsuleIndicatio ns:Type 2 diabetes mellitus with other diabetic neurological complication (CMS/HCC V24, CMS/HCC V28) Take 1 capsule by mouth twice daily. TAKE IN ADDITION TO 300MG TWICE DAILY NEEDED 180 capsule 4 Active famotidine (PEPCID) 20 mg tablet TAKE 1 TABLET BY MOUTH TWICE A DAY 180 tablet 1 4 Active gabapentin (NEURONTIN) 400 mg capsule Take 1 capsule (400 mg total) by mouth at bedtime. Active gabapentin (NEURONTIN) 300 mg capsuleIndicatio ns:Type 2 diabetes mellitus with other diabetic neurological complication (CMS/HCC V24, CMS/HCC V28) TAKE 1 CAPSULE BY MOUTH TWICE A DAY 180 capsule 1 5 Active meloxicam (MOBIC) 15 mg tablet TAKE 1 TABLET (15 MG TOTAL) BY MOUTH ONCE DAILY FOR 14 DAYS 30 tablet 5 Active insulin lispro (HumaLOG KwikPen) 100 unit/mL injection pen Inject 3 times a day with meals per sliding scale: 120-150: 2 units; 150-200: 4 units; 201-250: 6 units; 251-300: 8 units; 300-350: 10 units; 351-400: 12 units - Subcutaneous, when not using insulin pump. Max daily dose 40 units 15 mL 11 5 Active insulin lispro 100 unit/mL injection -Administer within 15 minutes of a mealInject 120 Units as directed See Admin Instructions. UP TO 120 UNITS DAILY VIA INSULIN PUMP 30 mL 5 Active pen needle, diabetic 32 gauge x needle Use 4 times a day with insulin 100 each 5 5 Active omeprazole (PriLOSEC) [address] capsule TAKE 1 CAPSULE BY MOUTH 2 TIMES DAILY (BEFORE MEALS). 180 capsule 1 5 Active atorvastatin (LIPITOR) 10 mg tablet Take 1 tablet (10 mg total) by mouth at bedtime. 90 each 5 Active Active Problems Problem Noted Date Diagnosed Date Mass of left wrist 06/21/2024 De Quervain's tenosynovitis 06/21/2024 IBS (irritable bowel syndrome) 05/03/2024 History of drug use 05/03/2024 Overview (05/03/2024): H/o opioid withdrawal Insulin pump in place 05/24/2021 Anxiety 03/16/2021 DM (diabetes mellitus), type 2 with neurological complications ([facility] V24, [facility] V28) 02/04/2021 Allergic rhinoconjunctivitis 06/18/2020 Kidney stone 10/28/2019 Episode of moderate major de pression ([facility] V24, [facility] V28) 10/03/2019 Rheumatoid arthritis ([facility] V24, [facility] V28) 10/03/2019 Overview (05/03/2024): Follows with Dr. Jo at [facility]. Medication free remission since 2020 Elevated TSH 08/18/2018 CTS (carpal tunnel syndrome) 02/24/2018 Depression 02/24/2018 Fibromyalgia 02/24/2018 Vitamin D deficiency 02/24/2018 Abnormal Pap smear of cervix 01/18/2018 Overview (05/03/2024): 12/2017 PAP Cytology neg, + HPV, ( neg) Per [facility] landon- repeat co-testing one year 01/11/2019 PAP Moderate asthma 01/08/2018 Convulsive disorder ([facility] V24, [facility] V28) 0 12/04/2017 Hypertension 11/28/2015 Insomnia 01/02/2015 Hemorrhoids 11/01/2013 Herpes zoster 10/25/2013 Hyperlipidemia 02/18/2011 Encounters Date Type Department Care Team Description 11/15/2024 3:30 PM EDT Office Visit Adult Medicine [address] [phone] Amber Jacobson PA Secondary hypertension (Primary Dx); Hyperlipidemia, unspecified hyperlipidemia type; DM (diabetes mellitus), type 2 with neurological complications ([facility] V24, [facility] V28) 10/13/[address] [phone] Gemma Ferris PA lab work 10/12/2024 7:30 AM EDT Office Visit [address] [phone] Gemma Ferris PA DM (diabetes mellitus), type 2 with neurological complications ([facility] V24, [facility] V28) (Primary Dx); Secondary hypertension; Hyperlipidemia, unspecified hyperlipidemia type from Last 3 Months Immunizations Name Administration Dates Next Due Moderna SARS-CoV-2 COVID-19, mRNA, LNP-S, preservative free 09/14/2020,08/14/2020 Pneumococcal conjugate 13 va lent (Prevnar 13, PCV13) 2mo and older 12/04/2017 Surgical History Surgery Date Site/Laterality Comments CARPAL TUNNEL RELEASE PROCEDURE: NV NEUROPLASTY &/TRANSPOS MEDIAN NRV CARPAL TUNNE SECTION PROCEDURE: NV DELIVERY ONLY PARTIAL HYSTERECTOMY 2007 PROCEDURE: NV SUPRACERVICAL ABDL HYSTER W/WO RMVL TUBE OVARY SALPINGOOPHORECTOMY Left PROCEDURE: NV LAPAROSCOPY W/RMVL ADNEXAL STRUCTURES OTHER SURGICAL HISTORY [...] landon- repeat co-testing one year Convulsive disorder ([facility]/HCC V24, [facility] V28) 12/04/2017 DX:Convulsive disorder (HCC) Moderate asthma 01/08/2018 DX:Moderate asth ma Insomnia 01/02/2015 DX:Insomnia Hyperlipidemia 02/18/2011 DX:Hyperlipidemi a Hypertension 11/28/2015 DX:Hypertension Rheumatoid arthritis ([facility] C V24, [facility]/HCC V28) 10/03/2019 DX:Rheumatoid arthritis (HCC ) Kidney stone 10/28/2019 DX:Kidney stone Anxiety 03/16/2021 DX:Anxiety DM (diabetes mellitus), type 2 with renal complications (CMS/HCC V24, CMS/HCC V28) 02/04/2021 DX:DM (diabetes mellitus), t ype 2 with renal complications (HCC) DM (diabetes mellitus), type 2 with neurological complications (CMS/HCC V24, [facility]/HCC V28) 02/04/2021 DX:DM (diabetes mellitus), t ype [...] for your loved ones. For example, child abuse worker or elderly care for an older adult? [...] Sign Reading Time Taken Comments Blood Pressure 132/80 11/15/2024 3:22 PM EDT Pulse 92 11/15/2024 3:22 PM EDT Temperature 37.1 ??C (98.7 ??F) 11/15/2024 3:22 PM ED T Respiratory Rate 14 11/15/2024 3:22 PM EDT Oxygen Saturation 94% 07/22/2024 9:24 AM EST Inhaled Oxygen Concentration - - Weight 78 kg (172 lb) 11/15/2024 3:22 PM EDT Height 157.5 cm (5' 2 ) 11/15/2024 3:22 PM EDT Body Mass Index 31.46 11/15/2024 3:22 PM EDT Plan of Treatment Upcoming Encounters Date Type Department Care Team (Late st Contact Info) Description 03/08/2025 10:00 AM EDT Office Visit Adult Medicine [address] [phone] Cynthia Sweet MD [address] [place] [address] 04/14/2025 7:30 AM EDT Office Visit Endocrinology [address] [phone] Gemma Ferris PA [address] [place] [phone] Health Maintenance Due Date Last Done Comments [...] SCREENING Routine 01/11/2019 HIV SCREENING Routine 01/11/2019 [facility] SCREENING DIGITAL Routine 12/30/2017 2:34 PM EDT Encounter for screening mammogram for malignant neoplasm of breast from Last 3 Months or Most Recently Relevant to Health Maintenance Results * (ABNORMAL) Lipid panel with reflex to direct LDL (10/12/2024 8:23 AM EDT) Cholesterol 239(H) 0 - 200 mg/dL LAB CHEMISTRY METHOD 10/12/2024 11:32 AM EDT [facility] Triglycerides 288(H) 0 - 150 mg/dL LAB CHEMISTRY METHOD 10/12/2024 11:32 AM EDT [facility] HDL 40 >=40 mg/dL LAB CHEMISTRY METHOD 10/12/2024 11:32 AM EDT [facility] LDL Calculated 141(H) 0 - 100 mg/dL LAB CHEMISTRY METHOD 10/12/2024 11:32 AM EDT [facility] VLDL Cholesterol Nino 57.6 mg/dL LAB CHEMISTRY METHOD 10/12/2024 11:32 AM EDT [facility] Non HDL Chol. (LDL+VLDL) 199(H) <145 mg/dL LAB CHEMISTRY METHOD 10/12/2024 11:32 AM T [facility] Chol/HDL Ratio 6.0(H) 0.0 - 4.4 LAB CHEMISTRY METHOD 10/12/2024 11:32 AM T [facility] Blood Venous blood specimen / Unknown Venipuncture / Unknown 10/12/2024 8:23 AM EDT 10/12/2024 8:23 AM EDT us Gemma MONTALVO LAB BLOOD ORDERABLES Final Result [facility] [address] [place] [address], [place] [phone] * Microalbumin creatinine urine ratio (10/12/2024 8:23 AM EDT) Creatinine, Urine 156.0 mg/dL LAB CHEMISTRY METHOD 10/12/2024 1:39 PM EDT [facility] Microalb, Ur 14.0 0.0 - 29.0 mg/L LAB CHEMISTRY METHOD 10/12/2024 1:39 PM EDT [facility] Microalb/Creat Ratio 9 <30 mg/g creat LAB CHEMISTRY METHOD 10/12/2024 1:39 PM EDT [facility] Urine Urine specimen from urethra / Unknown Non-blood Collection / Unknown 10/12/2024 8:23 AM EDT 10/12/2024 8:23 AM EDT us Gemma MONTALVO LAB URINE ORDERABLES Final Result Performing Organization Address [facility]/ZIP Co de Phone Number [facility] [address] [place] [address], [place] [phone] * (ABNORMAL) Hemoglobin A1c (10/12/2024 8:23 AM EDT) Hemoglobin A1C 6.5(H) <6.5 % LAB CHEMISTRY METHOD 10/12/2024 2:27 PM EDT [facility] Mean Bld Glu Estim. 140 mg/dL LAB CHEMISTRY METHOD 10/12/2024 2:27 PM EDT [facility] Blood Venous blood specimen / Unknown Venipuncture / Unknown 10/12/2024 8:23 AM EDT 10/12/2024 8:23 AM EDT us Gemma MONTALVO LAB BLOOD ORDERABLES Final Result Performing Organization Address City/[facility]/ZIP Co de Phone Number [facility] [address] [place] [address], [place] [phone] * (ABNORMAL) Basic metabolic panel (10/12/2024 8:23 AM EDT) Pathologist [facility] Sodium 138 133 - 145 mmol/L LAB CHEMISTRY METHOD 10/12/2024 11:31 AM [facility] Potassium 4.5 3.5 - 5.5 mmol/L LAB CHEMISTRY METHOD 10/12/2024 11:31 AM [facility] Chloride 103 96 - 110 mmol/L LAB CHEMISTRY METHOD 10/12/2024 11:31 AM [facility] CO2 30 21 - 32 mmol/L LAB CHEMISTRY METHOD 10/12/2024 11:31 AM [facility] Anion Gap 5 3 - 11 LAB CHEMISTRY METHOD 10/12/2024 11:31 AM [facility] Glucose 131(H) 70 - 100 mg/dL LAB CHEMISTRY METHOD 10/12/2024 11:31 AM [facility] BUN 12 5 - 25 mg/dL LAB CHEMISTRY METHOD 10/12/2024 11:31 AM [facility] Creatinine 0.71 0.50 - 1.10 mg/dL LAB CHEMISTRY METHOD 10/12/2024 11:31 AM [facility] eGFR 99 >=60 mL/min/1. 73m2 LAB CHEMISTRY METHOD 10/12/2024 11:31 AM [facility] Comment:Calculation based on the??Chronic Kidney Disease Epidemiology Collaboration (CKD-EPI) equation refit??without adjustment for race. BUN/Creatinine Ratio 16.9 LAB CHEMISTRY METHOD 10/12/2024 11:31 AM [facility] Calcium 9.5 8.5 - 10.5 mg/dL LAB CHEMISTRY METHOD 10/12/2024 11:31 AM [facility] Blood Venous blood specimen / Unknown Venipuncture / Unknown 10/12/2024 8:23 AM EDT 10/12/2024 8:23 AM EDT us Gemma MONTALVO LAB BLOOD ORDERABLES Final Result [facility] [address] [place] [address], * COLONOSCOPY Anesthesia - MAC; [facility] ENDOSCOPY (06/15/2024 8:38 AM EST) Anatomical Region [...] ? Metamucil. Narrative 06/15/2024 8:38 AM EST [facility] GI Patient Name: Neisha Gutierrez Procedure Date: [...] Procedure Code(s): ? --- Professional --- ? 86172, Colonoscopy, flexible; with removal of ? tumor(s), polyp(s), or other lesion(s) by snare ? technique Diagnosis Code(s): ? --- Professional --- ? Z12.11, Encounter for screening for malignant neoplasm ? of colon ? K64.0, First degree hemorrhoids ? D12.0, Benign neoplasm of cecum ? K57.30, Diverticulosis of large intestine without ? perforation or abscess without bleeding CPT copyright 2021 [employer]. All rights reserved. The codes documented in this report are preliminary and upon graduate student instructor review may be revised to meet current compliance requirements. Marco Hagan MD 06/15/2024 8:38:50 AM This report has been signed electronically.Marco Hagan MD Number of Addenda: 0 Note Initiated On: 06/15/2024 8:15 AM Scope In: Scope Out: ? Endoscopy Department at [facility] - [address] [place] [address], ? [place] [address] Procedure Note Marco Hagan MD - 06/15/2024 [facility] GI Patient Name: Neisha Gutierrez Procedure Date: [...] was minimal. Procedure Code(s): --- Professional --- 63995, Colonoscopy, flexible; with removal of tumor(s), polyp(s), or other lesion(s) by snare technique Diagnosis Code(s): --- Professional --- Z12.11, Encounter for screening for malignantneoplasm of colon K64.0, First degree hemorrhoids D12.0, Benign neoplasm of cecum K57.30, Diverticulosis of large intestine without perforation or abscess without bleeding CPT copyright 2020 [employer]. All rights reserved. The codes documented in this report are preliminary and upon graduate student instructor reviewmay be revised to meet current compliance requirements. Marco Hagan MD 06/15/2024 8:38:50 AM This report has been signed electronically.Marco Hagan MD Number of Addenda: 0 Note Initiated On: 06/15/2024 8:15 AM Scope In: Scope Out: Endoscopy Department at [facility] - [address] [place] [id number] IMPRESSION: - Internal hemorrhoids. - Diverticulosis in the ascending colon. - One 3 mm polyp in the cecum, removed with a cold snare. Resected and retrieved. Recommendation: - Repeat colonoscopy in 5 years for surveillance. - Use fiber, for example Citrucel, Fibercon, Konsylor Metamucil. Marco Hagan MD GI~PROCEDURE ORDERABLES Final Re sult * External Diabetic Retina Eye Exam Report (06/07/2024) Anatomical Region Laterality Modality Ultrasound Provider Onbase IMG US PROCEDURES Final Resul t * Depression Screening (03/23/2024) [facility] Depression Screening abstracted Result [facility] Historical Provider HEALTH MAINTENANCE Final Result * Diabetes Foot Exam (06/09/2023) [facility] Diabetes: Annual Foot Exam abstracted Result [facility] Historical Provider HEALTH MAINTENANCE Final Result * Cervical Cancer Screening: HPV (01/11/2019) [facility] Cervical Cancer Screening: HPV negative, abstracted Result [facility] Historical Provider HEALTH MAINTENANCE Final Result * HIV Screening (01/11/2019) HIV Screening abstracted us Historical Provider HEALTH MAINTENANCE Final Result * Hepatitis C Screening (01/11/2019) Hepatitis C Screening abstracted Historical Provider HEALTH MAINTENANCE Final Result * REYNA SCREENING DIGITAL (12/30/2017 2:34 PM EDT) Anatomical Region Laterality Modality Mammography 12/30/2017 8:07 AM EDT Narrative 12/30/2017 2:34 PM EDT [facility] Diagnostic Imaging Department [address] [place] [id number] Patient: ??NEISHA GUTIERREZ ?/Age/Sex: 1965 - 52 - F Unit#: ??[id number] ? Location/Status: ??SPDIMAM/REG CLI ? Mnemonic/Ordering Site: ??DIGSC/SPMAM Ordering Physician: ??YONG ROLLE MD Reyna Screening Digital - 12/30/17843 EXAM: Reyna Screening Digital EXAM DATE AND TIME: 12/30/2017 8:46 AM HISTORY: ??Screening. Multiple family members with breast carcinoma including mother, age 38, sister, age 26, and maternal aunt, at age 40. COMPARISON: ??12/07/09 ([facility], [place], [place]) TECHNIQUE: CC and MLO views of both breasts were obtained using full field digital mammography. Bilateral digital breast tomosynthesis was performed in the MLO projection. Computer aided detection with the [employer] 7.2-H was employed. TISSUE DENSITY: b. There [...] Routine screening mammogram BILATERAL in 1 year. 53454, [id number] 3341F, 7033F Dictating Physician: ??SKYE BARLOW MD Electronically Signed by: ??SKYE BARLOW MD Dic Date/Time: ??12/30/17 1433 Sign date/Time: ??12/30/17 1434 Procedure Note Skye Barlow MD - 07/08/2022 [facility] Diagnostic Imaging Department [address] [place] [address] Patient: NEISHA GUTIERREZ./Age/Sex: 1965 - 52 - F Unit#: [id number] Location/Status: [facility]/REG CLI Mnemonic/Ordering Site: [facility] Ordering Physician: YONG ROLLE MD Reyna Screening Digital - 12/30/17 - 0844 EXAM: [facility] Screening Digital EXAM DATE AND TIME: 12/30/2017 8:46 AM HISTORY: Screening. Multiple family members with breast carcinomaincluding mother, age 38, sister, age 26, and maternal aunt, at age 40. COMPARISON: 12/07/09 ([facility], [place], [place]) TECHNIQUE: CC and MLO views of both breasts were obtained using fullfield digital mammography. Bilateral digital breast tomosynthesis was performedin the MLO projection. Computer aided detection with the [employer] 7.2-VBI Vaccinesas employed. TISSUE DENSITY: b. There are scattered [...] Routine screening mammogram BILATERAL in 1 year. [address], 22982 3341F, 7025F Dictating Physician: SKYE BARLOW MD Electronically Signed by: SKYE BARLOW MD Dic Date/Time: 12/30/17 1433 Sign date/Time: 12/30/17 1434 Yong Rolle MD IMG BI PROCEDURES Final Resu lt from Last 3 Months or Most Recently Relevant to Health Maintenance Insurance [facility] [employer] [place] [id number] Advance Directives * Full Code - Default [...] currently active code status orders. Care Teams Tree Specialist Relationship Specialty Start Date End Date Cynthia Sweet MD [address] [place] [id number] PCP - General Internal Medicine 06/22/24
[2024-12-21 15:37] VITALS: BP 122/72; PULSE 102; O2SAT 98; BMI 31.6
--- NOTE | 2024-12-21 15:37 | MHC.OFFVIS ---
Vital Signs 12/21/24 15:37 Height 5 ft 2 in Weight 172 lb 13.478 oz BMI 31.6 BP 122/72 Blood Pressure Location Lt brachial Position Sitting Pulse 102 H Pulse Source Pulse Oximeter Pulse Oximetry (%) 98 Oxygen Delivery Method Room Air Intake Visit Reasons: RA Intake Note: Patient presents for follow up on RA. Patient states her left hip is worse, she wakes up stiff most mornings, and it's still hard to get around. Allergies cefazolin [From ANCEF] Allergy (Severe, Verified 12/21/24 15:40) anaphlaxis duloxetine [Cymbalta] Allergy (Intermediate, Verified 12/21/24 15:40) Rash methotrexate Allergy (Intermediate, Verified 12/21/24 15:40) Swelling insulin glargine [From Lantus U-100 Insulin] Adverse Reaction (Severe, Verified 12/21/24 15:40) Anaphylaxis Latex Allergy (Intermediate, Uncoded 12/21/24 15:40) rash Medication List - Last Reconciled 12/21/24 by Leyda Mabry MD adalimumab (Humira(CF) Pen) 40 mg (0.4 mL) subcut QWEEK albuterol sulfate 2.5 mg inhalation Q6H budesonide 180 mcg/actuation (Pulmicort Flexhaler) 1 inh inhalation BID dicyclomine 10 mg PO TID epinephrine (EpiPen) 0.3 mg IM Q10M PRN famotidine 20 mg PO BID gabapentin 300 mg PO TID hydroxyzine HCl 25 mg PO BID PRN ibuprofen 800 mg PO BID PRN infusion set-insulin pump body As directed insulin lispro (Humalog U-100 Insulin) 5 units subcut TID lansoprazole 30 mg PO DAILY lisinopril 10 mg PO DAILY lurasidone (Latuda) 40 mg PO DAILY naltrexone 50 mg PO DAILY ondansetron HCl 4 mg PO Q8H PRN pravastatin 40 mg PO DAILY prazosin 1 mg PO BEDTIME prednisone Take 3 tablets per x 7 days, 2 tablets x 10 days, 1 tablet x 10 days. ramelteon 8 mg PO BEDTIME rizatriptan take 1 tab at onset of headache; if no relief may repeat 1 tab after at least 2 hrs; max = 3 tabs/24 hr PO sumatriptan succinate take 1 tab at onset of headache; if no relief, may repeat 1 tab after at least 2 hrs; max = 2 tabs/24 hrs PO topiramate 200 mg PO BID triamcinolone acetonide 0.1% 1 appl topical DAILY HPI Comments Details: Patient is a 59-year-old female with type 2 diabetes, hypertension, hyperlipidemia complicated by CAD, migraine headaches, polyarticular osteoarthritis, fibromyalgia and seropositive rheumatoid arthritis here today for follow up Interval History: Patient last seen 06/20/[address] Black. At that time she was following up for her seropositive rheumatoid arthritis on Humira 40 mg weekly. Reported an increased achiness especially involving her shoulders and outside her hips. On exam she had multiple tender joints including wrists, MCPs, PIPs and DIPs of both hands without visible swelling. She also had bilateral trochanteric bursitis. She was referred to PT. Today, She continues to have prolonged AM stiffness, joint pain and swelling involving hands, wrists, feet and elbows Rheumatologic History: +RF, -ve CCP dx 03/2017 failed methotrexate, Plaquenil, Orencia. 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 Fibromyalgia Seropositive rheumatoid arthritis Surgical History Hx of craniotomy Hx of tubal ligation Hx of hysterectomy Family History Mother Diabetes Father CVD (cardiovascular disease) Sister Diabetes Daughter Diabetes Social History Alcohol intake: current Patient Tobacco Use Status: Former Tobacco user Cigarettes Per Day: 30 Years Smoked: 16 Review of Systems Const Details: Review of Systems Constitutional: Denies fever, chills, weight loss ENT: Denies vision changes, eye pain or eye redness, dental caries, dry mouth GI: Denies nausea, vomiting, diarrhea, abdominal pain, change in BM Pulm: Denies SOB, BECKER, hemoptysis, wheezing Cards: Denies chest pain, palpitations Skin: Denies Raynaud's, rash, nail changes, photosensitivity, 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 Well appearing and in no apparent painful distress HEENT Conjunctiva and sclera clear. No lymphadenopathy. ? CHEST/RESPIRATORY SYSTEM Normal respiratory effort and able to speak in complete sentences. ?Clear to auscultation bilaterally. ?No crackles, rales, rhonchi, wheezes heard. CARDIAC SYSTEM Regular rate and rhythm. ?S1 and S2 heard no murmurs. ?Radial pulses intact bilaterally MSK Hands: ?Able to make a fist. Tenderness and swelling noted to the MCPs and PIPs. Wrists: ?Full range of motion at the wrists. Tenderness to palpation bilaterally with swelling noted to the left wrist. Surgical scar noted over the lateral aspect of the wrist. Elbows: Full range of motion. Tenderness to palpation bilaterally of the elbow joint Shoulders: Full range of active range of motion without pain. No tenderness, weakness, swelling, increased warmth or erythema. Knees: ?Full range of motion. ?No tenderness, swelling, increased warmth or erythema.?No effusion or crepitations Ankles: Full range of motion. ?No tenderness, swelling, increased warmth or erythema.? Feet: ?Positive squeeze test bilaterally Tender points:?No tenderness to palpation of the bilateral trapezius, supraspinatus, greater trochanters, anterior costochondral junctions, bilateral gluteal areas, bilateral suboccipital muscle insertions SKIN Skin intact without rashes. Results Reviewed Results Reviewed: Laboratory Tests 02/17/24 11/14/24 12:05 14:44 WBC 6.0 RBC 4.76 Hgb 14.1 Hct 40.3 Plt Count 454 H ESR 16 Sodium 141 Potassium 3.6 Chloride 104 Carbon Dioxide 29 BUN 11 Creatinine 0.68 Calcium 9.9 Total Bilirubin 0.3 AST 30 ALT 25 Alkaline Phosphatase 73 C-Reactive Protein 0.94 H 1.11 H Infectious serologies 11/14/24 14:44 Hepatitis A IgM Ab Nonreactive Hep Bs Antigen Negative Hep Bs Antibody NONREACTIVE Hep B Core Total Ab Nonreactive Hepatitis C Ab (EIA) Nonreactive TB Test (T-Spot) Com Negative Assessment & Plan Assessment & Plan (1) Seropositive rheumatoid arthritis: Comment: +RF, -ve CCP dx 03/2017 failed methotrexate, Plaquenil, Orencia. elevated LFT on Kevzara Humira started 09/3021 effective Code(s): M05.9 - Rheumatoid arthritis with rheumatoid factor, unspecified Category: Medical Plan: #Seropositive RA Patient is a 59-year-old female with seropositive rheumatoid arthritis here today for follow up. Currently on weekly Humira. Despite Humira monotherapy she currently has a moderate rheumatoid arthritis activity with multiple tender and swollen joints as well as an elevated CRP. It is likely that she has developed Humira antibodies and the efficacy of Humira has decreased (secondary nonresponse). We will try another TNF since she had such a good response to Humira. Plan - Stop Humira - Start Simponi every 4 weeks 200mg SC - Prednisone taper for flare - RTC 4 months - Labs before visit: CBC, CMP, ESR, CRP (2) Encounter for monitoring golimumab therapy: Code(s): Z51.81 - Encounter for therapeutic drug level monitoring; Z79.620 - detention (current) use of immunosuppressive biologic Plan: #Long-term Use of TNF Inhibitors: Simponi Discussed with the patient the benefits and risks of TNF inhibitors for the management of the rheumatic condition Benefits include reduce pain, maintenance of remission and reduction of flares as well as ?progression of the disease Risks include injection sites/infusion reactions, serious infections (such as bacterial infections, opportunistic infections), malignancy, delaminating syndromes, autoimmune phenomena, CHF exacerbations, palmar plantar psoriasis and cytopenias Recommended rotating injection sites, and holding medication during and for up to 1 week after resolution of a febrile illness or open skin wound Plan I spent 30 minutes reviewing the record and labs, taking a history, examining the patient, discussing the treatment plan, ordering diagnostic work up and documenting in the medical record Medications: New golimumab (Simponi) 50 mg (0.5 mL) subcut Q4W 0.5 mL 6RF M05.9 - Rheumatoid arthritis with rheumatoid factor, unspecified Changed From prednisone Take 3 tablets per x 7 days, 2 tablets x 10 days, 1 tablet x 10 days. 51 tabs 1RF M05.9 - Rheumatoid arthritis with rheumatoid factor, unspecified To prednisone Take 4 tablets for 14 days then 3 tablets for 14 days then 2 tablets for 14 days then 1 tablet for 14 days then stop 140 tabs 0RF M05.9 - Rheumatoid arthritis with rheumatoid factor, unspecified Discontinued adalimumab (Humira(CF) Pen) Discontinued Reason: Doctor's Order 40 mg (0.4 mL) subcut QWEEK 4 ea 3RF M05.9 - Rheumatoid arthritis with rheumatoid factor, unspecified Coding Level of Care Code Est Pt Level 4 (05465) Complex EM visit Add On G2211 Diagnoses Seropositive rheumatoid arthritis M05.9 Encounter for monitoring golimumab therapy Z51.81; Z79.620
== END 2024-12-21 16:19 | disposition home or self-care (01) ==
LOC: HO.RHE 15:25
PROVIDERS: PCP Student in an Organized Health Care Education/Training Program; Visit Provider Student in an Organized Health Care Education/Training Program
DX: M05.79 Rheumatoid arthritis with rheumatoid factor of multiple sites without organ or systems involvement (principal); Z51.81 Encounter for therapeutic drug level monitoring; Z79.620 Long term (current) use of immunosuppressive biologic
CPT/HCPCS: 99213

== ENCOUNTER → 2024-12-21 15:25 | Outpatient (BNVA) | payer OTHER, SELFPAY | PROVIDERS: PCP Student in an Organized Health Care Education/Training Program; Visit Provider Student in an Organized Health Care Education/Training Program | DX: M05.9 Rheumatoid arthritis with rheumatoid factor, unspecified (principal); Z51.81 Encounter for therapeutic drug level monitoring; Z79.620 Long term (current) use of immunosuppressive biologic | CPT/HCPCS: 99212 ==

== ENCOUNTER 2025-04-18 15:48 | Outpatient (REF) | payer OTHER, SELFPAY ==
--- OUTSIDE RECORDS SUMMARY | 2025-04-18 17:00 | XMS_ITS | Clinical Summary ---
Author Organization [facility] Address [address] [place] [address] Phone Care Team Providers Care Equipment Validation Engineer Name Role Phone Cynthia Sweet MD Primary Care Provider [phone] Allergies Active Allergy Reactions Criticality Noted Date [...] TWICE DAILY NEEDED 180 capsule 4 Active gabapentin (NEURONTIN) 400 mg capsule [...] total) by mouth at bedtime. 90 each 1 5 Active famotidine (PEPCID) 20 mg tablet TAKE 1 TABLET BY MOUTH TWICE A DAY 180 tablet 1 5 Active Active Problems Problem Noted Date Diagnosed Date Mass of left wrist 06/21/2024 De Quervain's tenosynovitis 06/21/2024 IBS (irritable bowel syndrome) 05/03/2024 History of drug use 05/03/2024 Overview (05/03/2024): H/o opioid withdrawal Insulin pump in place 05/24/2021 Anxiety 03/16/2021 DM (diabetes mellitus), type 2 with neurological complications ([facility] V24, [facility] V28) 02/04/2021 Allergic rhinoconjunctivitis 06/18/2020 Kidney stone 10/28/2019 Episode of moderate major de pression ([facility] V24, [facility] V28) 10/03/2019 Rheumatoid arthritis ([facility] V24, [facility] V28) 10/03/2019 Overview (05/03/2024): Follows with Dr. Jo at [facility]. Medication free remission since 2020 Elevated TSH 08/18/2018 CTS (carpal tunnel syndrome) 02/24/2018 Depression 02/24/2018 Fibromyalgia 02/24/2018 Vitamin D deficiency 02/24/2018 Abnormal Pap smear of cervix 01/18/2018 Overview (05/03/2024): 12/2017 PAP Cytology neg, + HPV, ( neg) Per [facility] guidleines- repeat co-testing one year 01/11/2019 PAP Moderate asthma 01/08/2018 Convulsive disorder ([facility] V24, [facility] V28) 0 12/04/2017 Hypertension 11/28/2015 Insomnia 01/02/2015 Hemorrhoids 11/01/2013 Herpes zoster 10/25/2013 Hyperlipidemia 02/18/2011 Immunizations Immunization Administration Dates Next Due Moderna SARS-CoV-2 COVID-19, mRNA, LNP-S, preservative free 09/14/2020,08/14/2020 Pneumococcal conjugate 13 va lent (Prevnar 13, PCV13) 2mo and older 12/04/2017 Surgical History Surgery Date Site/Laterality Comments CARPAL TUNNEL RELEASE PROCEDURE: [place] NEUROPLASTY &/TRANSPOS MEDIAN NRV CARPAL TUNNE SECTION PROCEDURE: [place] DELIVERY ONLY PARTIAL HYSTERECTOMY 2007 PROCEDURE: [place] SUPRACERVICAL ABDL HYSTER W/WO RMVL TUBE OVARY SALPINGOOPHORECTOMY Left PROCEDURE: [place] LAPAROSCOPY W/RMVL ADNEXAL STRUCTURES OTHER SURGICAL HISTORY [...] neg, + HPV, ( neg) Per [facility] guidleines- repeat co-testing one year Convulsive disorder ([facility]/HCC V24, [facility] V28) 12/04/2017 DX:Convulsive disorder (HCC) Moderate asthma 01/08/2018 DX:Moderate asth ma Insomnia 01/02/2015 DX:Insomnia Hyperlipidemia 02/18/2011 DX:Hyperlipidemi a Hypertension 11/28/2015 DX:Hypertension Rheumatoid arthritis ([facility] C V24, [facility] V28) 10/03/2019 DX:Rheumatoid arthritis (HCC ) Kidney stone 10/28/2019 DX:Kidney stone Anxiety 03/16/2021 DX:Anxiety DM (diabetes mellitus), type 2 with renal complications ([facility] V24, [facility] V28) 02/04/2021 DX:DM (diabetes mellitus), t ype 2 with renal complications (HCC) DM (diabetes mellitus), type 2 with neurological complications ([facility] V24, [facility] V28) 02/04/2021 DX:DM (diabetes mellitus), [...] for your loved ones. For example, child day care provider or elderly care for an older adult? [...] Date Recorded What is your living situation? Unrecognized valu e 09/07/2024 Interpersonal Safety Answer Date Record ed Physical Abuse Unrecognized value 07/22/2024 Verbal Abuse Unrecognized value 07/22/2024 Comments No Sex and Gender Information [...] 92 11/15/2024 3:22 PM EDT Temperature 37.1 C (98.7 F) 11/15/2024 3:22 PM EDT Respiratory Rate 14 11/15/2024 3:22 PM EDT Oxygen Saturation 94% 07/22/2024 9:24 AM EST Inhaled Oxygen Concentration - - Weight 78 kg (172 lb) 11/15/2024 3:22 PM EDT Height 157.5 cm (5' 2 ) 11/15/2024 3:22 PM EDT Body Mass Index 31.46 11/15/2024 3:22 PM EDT Plan of Treatment Upcoming Encounters Date Type Department Care Team (Late st Contact Info) Description 04/28/2025 8:00 AM EDT Office Visit Endocrinology [address] [phone] Gemma Ferris PA [address] [place] [address] 09/20/2025 4:00 PM EST Office Visit [facility] - [address] [phone] Cynthia Sweet MD [address] [place], [place] Health Maintenance Due Date Last Done Comments DTaP,Tdap,and Td Vaccines (1 - Tdap) 1985 Hepatitis B Vaccines (1 of 3 - 19+ 3-dose series) 1985 Zoster Vaccines (1 of 2) 2016 Pneumococcal Vaccine: 50+ Years (2 of 2 - PPSV23, PCV20, or PCV21) 01/29/2018 12/04/2017 Breast Cancer Screening 12/31/2019 12/30/2017 Cervical Cancer Screening: Pap Smear 01/11/2022 01/11/2019, 01/11/2019, 01/11/2019, Additional history exists Diabetes: Annual Foot Exam 06/09/2024 06/09/2023 COVID-19 Vaccine ( season) 2025 09/14/2020, 08/14/2020 Influenza Vaccine (#1) 2025 Diabetes: Blood Sugar Control Test (HGBA1C) 04/14/2025 10/12/2024, 01/14/2024, 01/14/2024 Diabetes: Annual Retina Eye Exam 06/07/2025 06/07/2024, 06/02/2023 Social Influencers of Health Screening 09/07/2025 09/07/2024 Diabetes: Annual Urine Albumin-Creatinine Ratio (uACR) 10/12/2025 10/12/2024, 01/14/2024 Diabetes: Annual GFR (Glomerular Filtration Rate) 10/12/2025 10/12/2024, 01/14/2024, 01/14/2024 Hypertension/CHF/CAD Annual BMP Blood Test 10/12/2025 10/12/2024, 01/14/2024, 01/14/2024 Colorectal Cancer Screening: Colonoscopy 06/15/2029 06/15/2024, 01/31/2019 Cholesterol Screening (Lipid Panel) 10/12/2029 10/12/2024, 01/14/2024, 01/14/2024 RSV Immunization Adult Patients (1 - 1-dose 75+ series) 2041 HIV Screening Completed 01/11/2019 Hepatitis C Screening Completed 01/11/2019 Depression Screening Completed 09/07/2024, 03/23/20 HIB Vaccines Aged Out No longer eligi [...] 20 months Aged Out No longer eligible based on patient's age to complete this topic Varicella Vaccines Aged Out No longer eligible based on patient's age to complete this topic Procedures Procedure Name Priority Date/Time Associated Diagnosis Comments MICROALBUMIN CREATININE URINE RATIO Routine 10/12/2024 8:23 AM EDT DM (diabetes mellitus), type 2 with neurological complications (CMS/HCC V24, CMS/HCC V28) BASIC METABOLIC PANEL Routine 10/12/2024 8:23 AM EDT DM (diabetes mellitus), type 2 with neurological complications (CMS/HCC V24, CMS/HCC V28) HEMOGLOBIN A1C Routine 10/12/2024 8:23 AM EDT DM (diabetes mellitus), type 2 with neurological complications (CMS/HCC V24, CMS/HCC V28) LIPID PANEL WITH REFLEX TO DIRECT LDL Routine 10/12/2024 8:23 AM EDT DM (diabetes mellitus), type 2 with neurological complications (CMS/HCC V24, CMS/HCC V28) COLONOSCOPY Routine 06/15/2024 8:38 AM EST Family history of malignant neoplasm of digestive organs EXTERNAL DIABETIC RETINA EYE EXAM 06/07/2024 DEPRESSION SCREENING Routine 03/23/2024 DIABETES FOOT EXAM Routine 06/09/2023 HEPATITIS C SCREENING Routine 01/11/2019 HIV SCREENING Routine 01/11/2019 PAP SMEAR Routine 01/11/2019 REYNA SCREENING DIGITAL Routine 12/30/2017 2:34 PM EDT Encounter for screening mammogram for malignant neoplasm of breast from Last 3 Months or Most Recently Relevant to Health Maintenance Results * (ABNORMAL) Lipid panel with reflex to direct LDL (10/12/2024 8:23 AM EDT) Cholesterol 239(H) 0 - 200 mg/dL LAB CHEMISTRY METHOD 10/12/2024 11:32 AM EDT [facility] Triglycerides 288(H) 0 - 150 mg/dL LAB CHEMISTRY METHOD 10/12/2024 11:32 AM EDT [facility] HDL 40 >=40 mg/dL LAB CHEMISTRY METHOD 10/12/2024 11:32 AM EDT [facility] LDL Calculated 141(H) 0 - 100 mg/dL LAB CHEMISTRY METHOD 10/12/2024 11:32 AM EDT [facility] VLDL Cholesterol Nino 57.6 mg/dL LAB CHEMISTRY METHOD 10/12/2024 11:32 AM EDT [facility] Non HDL Chol. (LDL+VLDL) 199(H) <145 mg/dL LAB CHEMISTRY METHOD 10/12/2024 11:32 AM EDT [facility] Chol/HDL Ratio 6.0(H) 0.0 - 4.4 LAB CHEMISTRY METHOD 10/12/2024 11:32 AM EDT [facility] Blood Venous blood specimen / Unknown Venipuncture / Unknown 10/12/2024 8:23 AM EDT 10/12/2024 8:23 AM EDT us Gemma MONTALVO LAB BLOOD ORDERABLES Final Result Performing Organization Address City/[facility]/ZIP Co de Phone Number [facility] [address] [place] [address], [place] [phone] * Microalbumin creatinine urine ratio (10/12/2024 8:23 AM EDT) Creatinine, Urine 156.0 mg/dL LAB CHEMISTRY METHOD 10/12/2024 1:39 PM EDT [facility] Microalb, Ur 14.0 0.0 - 29.0 mg/L LAB CHEMISTRY METHOD 10/12/2024 1:39 PM EDT [facility] Microalb/Creat Ratio 9 <30 mg/g creat LAB CHEMISTRY METHOD 10/12/2024 1:39 PM EDT [facility] Urine Urine specimen from urethra / Unknown Non-blood Collection / Unknown 10/12/2024 8:23 AM EDT 10/12/2024 8:23 AM EDT us Gemma MONTALVO LAB URINE ORDERABLES Final Result Performing Organization Address City/[facility]/ZIP Co de Phone Number [facility] [address] [place] [address], * (ABNORMAL) Hemoglobin A1c (10/12/2024 8:23 AM EDT) Pathologist [facility] Hemoglobin A1C 6.5(H) <6.5 % LAB CHEMISTRY METHOD 10/12/2024 2:27 PM EDT [facility] Mean Bld Glu Estim. 140 mg/dL LAB CHEMISTRY METHOD 10/12/2024 2:27 PM EDT [facility] Blood Venous blood specimen / Unknown Venipuncture / Unknown 10/12/2024 8:23 AM EDT 10/12/2024 8:23 AM EDT Gemma MONTALVO LAB BLOOD ORDERABLES Final Result [facility] [address] [place] [address], * (ABNORMAL) Basic metabolic panel (10/12/2024 8:23 AM EDT) [facility] Sodium 138 133 - 145 mmol/L LAB CHEMISTRY METHOD 10/12/2024 11:[address] [facility] Potassium 4.5 3.5 - 5.5 mmol/L LAB CHEMISTRY METHOD 10/12/2024 11:[address] [facility] Chloride 103 96 - 110 mmol/L LAB CHEMISTRY METHOD 10/12/2024 11:[address] [facility] CO2 30 21 - 32 mmol/L LAB CHEMISTRY METHOD 10/12/2024 11:[address] [facility] Anion Gap 5 3 - 11 LAB CHEMISTRY METHOD 10/12/2024 11:[address] [facility] Glucose 131(H) 70 - 100 mg/dL LAB CHEMISTRY METHOD 10/12/2024 11:[address] [facility] BUN 12 5 - 25 mg/dL LAB CHEMISTRY METHOD 10/12/2024 11:31 AM EDT [facility] Creatinine 0.71 0.50 - 1.10 mg/dL LAB CHEMISTRY METHOD 10/12/2024 11:31 AM EDT [facility] eGFR 99 >=60 mL/min/1. 73m2 LAB CHEMISTRY METHOD 10/12/2024 11:31 AM EDT [facility] Comment:Calculation based on the Chronic Kidney Disease Epidemiology Collaboration (CKD-EPI) equation refit without adjustment for race. BUN/Creatinine Ratio 16.9 LAB CHEMISTRY METHOD 10/12/2024 11:31 AM EDT [facility] Calcium 9.5 8.5 - 10.5 mg/dL LAB CHEMISTRY METHOD 10/12/2024 11:31 AM EDT [facility] Blood Venous blood specimen / Unknown Venipuncture / Unknown 10/12/2024 8:23 AM EDT 10/12/2024 8:23 AM EDT Gemma MONTALVO LAB BLOOD ORDERABLES Final Result [facility] [address] [place] [address], * COLONOSCOPY Anesthesia - MAC; [facility] ENDOSCOPY (06/15/2024 8:38 AM EST) Anatomical Region Laterality Modality Other 06/15/2024 8:15 AM EST Impressions 06/15/2024 8:38 AM EST - Internal hemorrhoids. - Diverticulosis in the ascending colon. - One 3 mm polyp in the cecum, removed with a cold snare. Resected and retrieved. Recommendation: - Repeat colonoscopy in 5 years for surveillance. - Use fiber, for example Citrucel, Fibercon, Konsyl or Metamucil. Narrative 06/15/2024 8:[address] [facility] Patient Name: Neisha Gutierrez Procedure Date: [...] scope was passed under direct vision. Throughout the procedure, the patient's blood pressure, pulse, and oxygen saturations were monitored continuously.The Colonoscope was introduced through the anus and advanced to the cecum, identified by appendiceal orifice and ileocecal valve. The colonoscopy was performed without difficulty. The patient tolerated the procedure well. The quality of the bowel preparation was good. Findings: The perianal and digital rectal examinations were normal. Internal hemorrhoids were found during endoscopy. The hemorrhoids were Grade I (internal hemorrhoids that do not prolapse). A few diverticula were found in the ascending colon. A 3 mm polyp was found in the cecum. The polyp was sessile. The polyp was removed with a cold snare. Resection and retrieval were complete. Estimated blood loss was minimal. Procedure Code(s): --- Professional --- 37789, Colonoscopy, flexible; with removal of tumor(s), polyp(s), or other lesion(s) by snare technique Diagnosis Code(s): --- Professional --- Z12.11, Encounter for screening for malignant neoplasm of colon K64.0, First degree hemorrhoids D12.0, Benign neoplasm of cecum K57.30, Diverticulosis of large intestine without perforation or abscess without bleeding CPT copyright 2020 [employer]. All rights reserved. The codes documented in this report are preliminary and upon pickers material handlers review may be revised to meet current compliance requirements. Marco Hagan MD 06/15/2024 8:38:50 AM This report has been signed electronically.Marco Hagan MD Number of Addenda: 0 Note Initiated On: 06/15/2024 8:15 AM Scope In: Scope Out: Endoscopy Department at [facility] - [address] [place] [phone] Procedure Note Marco Hagan MD - 06/15/2024 [facility] Patient Name: Neisha Gutierrez Procedure Date: [...] was minimal. Procedure Code(s): --- Professional --- 98835, Colonoscopy, flexible; with removal of tumor(s), polyp(s), or other lesion(s) by snare technique Diagnosis Code(s): --- Professional --- Z12.11, Encounter for screening for malignantneoplasm of colon K64.0, First degree hemorrhoids D12.0, Benign neoplasm of cecum K57.30, Diverticulosis of large intestine without perforation or abscess without bleeding CPT copyright 2020 [employer]. All rights reserved. The codes documented in this report are preliminary and upon pickers material handlers reviewmay be revised to meet current compliance requirements. Marco Hagan MD 06/15/2024 8:38:50 AM This report has been signed electronically.Marco Hagan MD Number of Addenda: 0 Note Initiated On: 06/15/2024 8:15 AM Scope In: Scope Out: Endoscopy Department at [facility] - [address] [place] [phone] IMPRESSION: - Internal hemorrhoids. - Diverticulosis in the ascending colon. - One 3 mm polyp in the cecum, removed with a cold snare. Resected and retrieved. Recommendation: - Repeat colonoscopy in 5 years for surveillance. - Use fiber, for example Citrucel, Fibercon, Konsylor Metamucil. us Marco Hagan MD GI~PROCEDURE ORDERABLES Final Re sult * External Diabetic Retina Eye Exam Report (06/07/2024) Anatomical Region Laterality Modality Ultrasound Provider Onbase IMG US PROCEDURES Final Resul t * Depression Screening (03/23/2024) [facility] Depression Screening abstracted Historical Provider HEALTH MAINTENANCE Final Result * Diabetes Foot Exam (06/09/2023) Pathologist [facility] Diabetes: Annual Foot Exam abstracted Result [facility] Historical Provider HEALTH MAINTENANCE Final Result * HIV Screening (01/11/2019) [facility] HIV Screening abstracted [facility] Provider HEALTH MAINTENANCE Final Result * Hepatitis C Screening (01/11/2019) [facility] Hepatitis C Screening abstracted Historical Provider HEALTH MAINTENANCE Final Result * Pap smear (01/11/2019) 01/11/2019 Narrative HISTORICAL TESTING LAB RESULTING AGENCY - 01/24/2019 7:50 AM EDT [id number] THINPREP PAP, IMAGED: NEGATIVE FOR SQUAMOUS INTRAEPITHELIAL LESION AND MALIGNANCY . TONY DURON , GRETCHEN(ASCP) (CASE ELECTRONICALLY SIGNED 01 21 2019) RESULT OF APTIMA HIGH RISK HPV ASSAY: HIGH RISK HPV: NEGATIVE (SEROTYPES 16,18,31,33,35,39,45,51,52,56,58,59,66,68) COMPLETED ON 2019-01-14 ADEQUACY: SATISFACTORY ENDOCERVICAL/TRANSFORMATION ZONE COMPONENT PRESENT. SOURCE: THINPREP PAP HPV ANY DX: REFLEX 16 AND 18, CERVICAL, IMAGED CLINICAL INFORMATION: HPV ANY DIAGNOSIS. Z12.4, Z01.419, HYSTERECTOMY, PAP HX POSITIVE HPV 01/08/18 Jhoana Albarran [facility] CYTOLOGY ORDERABLES Final Result HISTORICAL TESTING LAB RESULTING AGENCY * REYNA SCREENING DIGITAL (12/30/2017 2:34 PM EDT) Anatomical Region Laterality Modality Mammography 12/30/2017 8:07 AM EDT Narrative 12/30/2017 2:34 PM EDT [facility] Diagnostic Imaging Department [address] [place] [address] Patient: MATT,NEISHA Puente /Age/Sex: 1965 - 52 - F Unit#: [id number] Location/Status: SPDIMAM/REG CLI Mnemonic/Ordering Site: [facility] Ordering Physician: YONG ROLLE MD Reyna Screening Digital - 12/30/17 - 0844 EXAM: [facility] Screening Digital EXAM DATE AND TIME: 12/30/2017 8:46 AM HISTORY: Screening. Multiple family members with breast carcinoma including mother, age 38, sister, age 26, and maternal aunt, at age 40. COMPARISON: 12/07/09 ([facility], [place], [place]) TECHNIQUE: CC and MLO views of both breasts were obtained using full field digital mammography. Bilateral digital breast tomosynthesis was performed in the MLO projection. Computer aided detection with the Sensulin 7.2-H was employed. TISSUE DENSITY: b. There are scattered areas of fibroglandular density. FINDINGS: No suspicious masses, grouped microcalcifications, or areas of architectural distortion are seen. The skin and vascularity are unremarkable. IMPRESSION: Stable mammographic appearance of the breasts. No evidence of malignancy is seen. A negative mammogram in the presence of a clinically suspicious palpable abnormality does not preclude the possibility of malignancy or alter the indications for biopsy. BI-RADS: Category 1: Negative RECOMMENDATION(S): 1: Routine screening mammogram BILATERAL in 1 year. [id number], 26856 3341F, 7025F Dictating Physician: SKYE BARLOW MD Electronically Signed by: SKYE BARLOW MD Dic Date/Time: 12/30/17 1433 Sign date/Time: 12/30/17 1434 Procedure Note Skye Barlow MD - 07/08/2022 [facility] Diagnostic Imaging Department [address] [place] [id number] Patient: KANWAL GUTIERREZBERNARDO Puente D.O.B./Age/Sex: 1965 - 52 - F Unit#: [id number] Location/Status: [facility]/REG CLI Mnemonic/Ordering Site: [facility] Ordering Physician: YONG ROLLE MD Reyna Screening Digital - 12/30/17 - 44 EXAM: Reyna Screening Digital EXAM DATE AND TIME: 12/30/2017 8:46 AM HISTORY: Screening. Multiple family members with breast carcinomaincluding mother, age 38, sister, age 26, and maternal aunt, at age 40. COMPARISON: 12/07/09 ([place], [place]) TECHNIQUE: CC and MLO views of both breasts were obtained using fullfield digital mammography. Bilateral digital breast tomosynthesis was performedin the MLO projection. Computer aided detection with the Sensulin 7.2-Evoinfinityas employed. TISSUE DENSITY: b. There are scattered [...] Routine screening mammogram BILATERAL in 1 year. 40513, 87063 3341F, 7025F Dictating Physician: SKYE BARLOW MD Electronically Signed by: SKYE BARLOW MD Dic Date/Time: 12/30/17 1433 Sign date/Time: 12/30/17 1434 Yong Rolle MD IMG BI PROCEDURES Final Resu lt from Last 3 Months or Most Recently Relevant to Health Maintenance Insurance [facility] Advance Directives * Full Code - Default [...] currently active code status orders. Care Teams Equipment Validation Engineer Relationship Specialty Start Date End Date Cynthia Sweet MD [address] [place] [phone] PCP - General Internal Medicine 06/22/24
--- OUTSIDE RECORDS SUMMARY | 2025-04-18 17:00 | XMS_ITS | Clinical Summary ---
Author Organization [facility] Address [address] [place] [address] Care Team Providers Care Fluid Pump Operator Name Role Phone Jackie Corbett MD Primary [...] (1 of 2) 2016 Influenza Vaccine (#1) 2025 Pneumococcal Vaccine Aged Out 12/04/2017 No long er eligible based on patient's age to complete this topic RSV Ped < 20 months Aged Out No longe r eligible based on patient's age to complete this topic Care Teams Fluid Pump Operator Relationship Specialty Start Date End Date [place]-Jackie Escobar MD PCP - General Internal Medicine 03/27/20
--- OUTSIDE RECORDS SUMMARY | 2025-04-18 17:00 | XMS_ITS | Clinical Summary ---
Author Organization [facility] Address [facility] [address] [address] Phone Care Team Providers Care Ball Holder Name Role Phone Litzy Willis MD Primary Care Provide r Social History Tobacco Use Types Packs/Day Years Used Date Smoking Tobacco: Never Assessed Education Answer Date Recorded Are you interested in more education? Not on jinny e 11/15/2022 Are you concerned about learning? Not on file 11/15/2022 No 11/15/2022 No 11/15/2022 Digital Access Answer Date Recorded No 12/14/2022 No 12/14/2022 No 12/14/2022 Reliable internet access at home? Not on file 12/14/2022 Device with a working camera? Not on file Comments Unknown Sex and Gender Information Value Date Recorded Sex Assigned at Not on file Legal Sex Female 1:07 PM EST Gender Identity Not on file Sexual Orientation Not on file Plan of Treatment Health Maintenance Due Date Last Done Comments LIPID PANEL 1965 DEPRESSION SCREENING 1978 SMOKING Hx and SMOKELESS TOBACCO SCREENING 1979 HEPATITIS C SCREENING 1984 HIV ONE-TIME SCREENING (18-6 5 YEARS) 1984 PAP SMEAR 1987 MAMMOGRAM 2006 COLOGUARD 2011 COLONOSCOPY 2011 COLORECTAL CANCER SCREENING 2011 FIT TEST 2011 FOBT 2011 SIGMOIDOSCOPY 2011 VIRTUAL COLONOSCOPY 2011 PNEUMOCOCCAL VACCINES (50+ years) (1 of 1 - PCV) 2016 ZOSTER VACCINES (1 of 2) 2016 INFLUENZA VACCINE (#1) 2025 05/13/2018 COVID-19 VACCINE (2024-2 6 season) 2025 09/11/2020, 08/14/2020 Adult Td,Tdap Booster 04/01/2026 04/01/2016 HEPATITIS A VACCINES Aged Out No long er eligible based on patient's age to complete this topic HIB VACCINES Aged Out No longer eligi ble based on patient's age to complete this topic MENINGOCOCCAL VACCINES (ACWY) Aged Out No longer eligible based on patient's age to complete this topic MENINGOCOCCAL VACCINES (B) Aged Out N o longer eligible based on patient's age to complete this topic Medical Devices Not on file Insurance [employer] [place] [address] [place] [address] [employer] ACO [facility] [place] [address] [place] [address] [employer] [facility] [employer] [place] [address] [place] [address] [employer] [place] [address] [address] [address] [employer] [place] [address] [place] [address] [place] [address] Care Teams Ball Holder Relationship Specialty Start Date End Date Litzy Willis MD [address] [place] [address] PCP - General 06/10/21 Additional Source Comments The information contained in this document represents components of the legal health record. It is not the complete legal health record.[facility]
[2025-04-18 17:55] LABS: MANUAL DIFF FLAG NO
[2025-04-18 18:12] LABS: Hematocrit 39.0 % (37.0-47.0); Hemoglobin 13.2 g/dl (12.0-16.0); Imm Gran Abs Auto 0.01 X10*3/uL (0.00-0.03); Imm Gran Pct Auto 0.2 % (0.0-0.4); Lymphocytes Absolute Auto 3.1 X10*3/uL (1.2-4.9); Mean Corpuscular HGB Conc 33.8 g/dl (31.0-35.0); Mean Corpuscular Hemoglobin 29.4 pg (27.0-33.0); Mean Corpuscular Volume 86.9 fL (80.0-98.0); NRBC Abs Auto 0.000 X10*3/uL (0.0-0.012); NRBC Pct Auto 0.0 /100WBC (0.0-0.2); Platelet Count 481 X10*3/uL (160-400); Red Blood Count 4.49 X10*6/uL (4.20-5.50); White Blood Count 5.7 X10*3/uL (4.8-10.8)
[2025-04-18 18:35] LABS: Alanine Aminotransferase 28 U/L (0-31); Albumin Level 4.5 g/dL (3.5-5.0); Alkaline Phosphatase 72 U/L (39-117); Anion Gap 11 (12-20); Aspartate Amino Transferase 40 U/L (5-31); Blood Urea Nitrogen 10 mg/dL (9-16); Calcium 9.6 mg/dL (8.4-10.2); Carbon Dioxide 30 mmol/L (22-29); Chloride 105 mmol/L (96-108); Estimated Glomerular Filt Rate > 60; Potassium 3.9 mmol/L (3.3-5.1); Sodium 142 mmol/L (135-145); Total Protein 7.6 g/dL (6.5-8.0)
== END 2025-04-18 15:49 | disposition home or self-care (01) ==
LOC: HO.HKASLDS 15:48
PROVIDERS: PCP Student in an Organized Health Care Education/Training Program; Visit Provider Student in an Organized Health Care Education/Training Program
DX: M05.9 Rheumatoid arthritis with rheumatoid factor, unspecified (principal)
CPT/HCPCS: 36415; 80053; 85025; 85652; 86140

== ENCOUNTER 2025-04-20 14:23 | Outpatient (AMB) | payer OTHER, SELFPAY ==
--- NOTE | 2025-04-20 14:37 | A.OFFVIS_ITS ---
Vital Signs 04/20/25 14:43 Height 5 ft 2 in Weight 172 lb 9.951 oz BMI 31.6 BP 134/90 H Blood Pressure Location Rt brachial Position Sitting Pulse 78 Pulse Source Pulse Oximeter Pulse Oximetry (%) 98 Oxygen Delivery Method Room Air Intake Visit Reasons: RA Intake Note: Patient presents for RA follow up. Allergies cefazolin (From ANCEF) Allergy (Severe, Verified 04/20/25 14:42) anaphlaxis duloxetine (Cymbalta) Allergy (Intermediate, Verified 04/20/25 14:42) Rash methotrexate Allergy (Intermediate, Verified 04/20/25 14:42) Swelling insulin glargine (From Lantus U-100 Insulin) Adverse Reaction (Severe, Verified 04/20/25 14:42) Anaphylaxis Latex Allergy (Intermediate, Uncoded 12/21/24 15:40) rash Medication List - Last Reconciled 04/20/25 by Leyda Mabry MD albuterol sulfate 2.5 mg inhalation Q6H budesonide 180 mcg/actuation (Pulmicort Flexhaler) 1 inh inhalation BID dicyclomine 10 mg PO TID epinephrine (EpiPen) 0.3 mg IM Q10M PRN famotidine 20 mg PO BID gabapentin 300 mg PO TID golimumab (Simponi) 50 mg (0.5 mL) subcut Q4W hydroxyzine HCl 25 mg PO BID PRN ibuprofen 800 mg PO BID PRN infusion set-insulin pump body As directed insulin lispro (Humalog U-100 Insulin) 5 units subcut TID lansoprazole 30 mg PO DAILY lisinopril 10 mg PO DAILY lurasidone (Latuda) 40 mg PO DAILY naltrexone 50 mg PO DAILY ondansetron HCl 4 mg PO Q8H PRN pravastatin 40 mg PO DAILY prazosin 1 mg PO BEDTIME prednisone Take 3 tablets for 14 days then 2 tablets for 14 days then 1 tablet for 14 days then stop ramelteon 8 mg PO BEDTIME rizatriptan take 1 tab at onset of headache; if no relief may repeat 1 tab after at least 4 hrs; max = 2 tabs/24 hr PO 30 days topiramate 200 mg PO BID triamcinolone acetonide 0.1% 1 appl topical DAILY HPI Comments Details: Patient is a 59-year-old female with type 2 diabetes, hypertension, hyperlipidemia complicated by CAD, migraine headaches, polyarticular osteoarthritis, fibromyalgia and seropositive rheumatoid arthritis here today for follow up Interval History: Patient last seen 12/21/24 with me - On Humira 40mg SC weekly - Continues to have prolonged AM stiffness, joint pain and swelling involving hands, wrists, feet and elbows - Humira stopped - Started Simponi injections Today - Simponi 50mg SC every 4 weeks - Did not start this medication because insurance did not approve it, it is currently still in appeal - Currently in a polyarticular joint flare Rheumatologic History: +RF, -ve CCP dx 03/2017 failed methotrexate, Plaquenil, Orencia. 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 Diabetes [facility] methotrexate user Fibromyalgia Seropositive rheumatoid arthritis Surgical History Hx of craniotomy Hx of tubal ligation Hx of hysterectomy Family History Mother Diabetes Father CVD (cardiovascular disease) Sister Diabetes Daughter Diabetes Social History Alcohol intake: current Patient Tobacco Use Status: Former Tobacco user Cigarettes Per Day: 30 Years Smoked: 16 Review of Systems Const Details: Review of Systems Constitutional: Denies fever, chills, weight loss ENT: Denies vision changes, eye pain or eye redness, dental caries, dry mouth GI: Denies nausea, vomiting, diarrhea, abdominal pain, change in BM Pulm: Denies SOB, BECKER, hemoptysis, wheezing Cards: Denies chest pain, palpitations Skin: Denies Raynaud's, rash, nail changes, photosensitivity, CORRUGATOR SUPERVISOR: Denies headaches, weakness, paresthesias, recurrent falls MSK: as per HPI All other systems reviewed and are unremarkable except noted above Physical Exam Exam Exam: Vital signs reviewed Physical Examination CONSTITUITIONAL Patient alert and cooperative. Well appearing and in no apparent painful distress MSK Hands * Right Hand: Not able to make a fist. No swelling but tenderness to palpation of the MCPs, PIPs or DIPs. No deformities noted. * Left Hand: Not able to make a fist. No swelling but tenderness to palpation of the MCPs, PIPs or DIPs. No deformities noted. Wrists * Right Wrist: Full ROM to flexion and extension. No swelling but TTP * Left Wrist: Full ROM to flexion and extension. No swelling but TTP Elbows * Right Elbow: Full ROM. No swelling or TTP. No TTP of the medial epicondyle. No TTP of the lateral epicondyle * Left Elbow: Full ROM. No swelling or TTP. No TTP of the medial epicondyle. No TTP of the lateral epicondyle Shoulders * Right shoulder: Decreased ROM. No swelling noted. No TTP of the AC joint. No TTP of the subacromial bursa. No TTP of the posterior shoulder * Left shoulder: Decreased ROM. No swelling noted. No TTP of the AC joint. No TTP of the subacromial bursa. No TTP of the posterior shoulder Knees * Right knee: Full ROM. No swelling noted. TTP of the knee joint line. No TTP of pes anserine bursa * Left knee: Full ROM. No swelling noted. TTP of the knee joint line. No TTP of pes anserine bursa. Ankles * Right ankle: Good ankle dorsiflexion and plantar flexion. No swelling. No TTP of the ankle joint * Left ankle: Good ankle dorsiflexion and plantar flexion. No swelling. No TTP of the ankle joint Feet * Right foot: Positive squeeze test * Left foot: Positive squeeze test Tender points? * No tenderness to palpation of the bilateral trapezius, supraspinatus, anterior costochondral junctions, bilateral suboccipital muscle insertions SKIN No rashes Vital Signs: Last Vital Signs Pulse 78 04/20/25 14:43 BP 134/90 H 04/20/25 14:43 Pulse Ox 98 04/20/25 14:43 Oxygen Delivery Method Room Air 04/20/25 14:43 BMI result Body Mass Index 31.6 Results Reviewed Results Reviewed: Laboratory Tests 11/14/24 04/18/25 14:44 15:43 WBC 5.7 RBC 4.49 Hgb 13.2 Hct 39.0 Plt Count 481 H ESR 16 23 H Sodium 142 Potassium 3.9 Chloride 105 Carbon Dioxide 30 H BUN 10 Creatinine 0.69 Total Bilirubin 0.4 AST 40 H ALT 28 C-Reactive Protein 1.11 H 1.48 H Laboratory Tests 11/14/24 14:44 Hepatitis A IgM Ab Nonreactive Hep Bs Antigen Negative Hep Bs Antibody NONREACTIVE Hep B Core Total Ab Nonreactive Hepatitis C Ab (EIA) Nonreactive TB Test (T-Spot) Com Negative Assessment & Plan Assessment & Plan (1) Seropositive rheumatoid arthritis: Comment: +RF, -ve CCP dx 03/2017 failed methotrexate, Plaquenil, Orencia. elevated LFT on Kevzara Humira started 09/3021 effective Code(s): M05.9 - Rheumatoid arthritis with rheumatoid factor, unspecified Category: Medical Plan: #Seropositive RA Patient is a 59-year-old female with seropositive rheumatoid arthritis here today for follow up. Has not started Simponi since her last visit due to insurance delays and delayed appeals. Patient is in an extreme flare of her disease with several tender joints on examination. At this point patient would prefer to do infusions We will start prior Auth for Simponi infusions Plan - Simponi infusions: Loading dose: 2mg/kg every 4 weeks x 2 doses. 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) use of immunosuppressive biologic Plan: #Long-term Use of TNF Inhibitors: Simponi Discussed with the patient the benefits and risks of TNF inhibitors for the management of the rheumatic condition Benefits include reduce pain, maintenance of remission and reduction of flares as well as ?progression of the disease Risks include injection sites/infusion reactions, serious infections (such as bacterial infections, opportunistic infections), malignancy, delaminating synd romes, autoimmune phenomena, CHF exacerbations, palmar plantar psoriasis and cytopenias Recommended rotating injection sites, and holding medication during and for up to 1 week after resolution of a febrile illness or open skin wound Plan I spent 30 minutes reviewing the record and labs, taking a history, examining the patient, discussing the treatment plan, ordering diagnostic work up and documenting in the medical record Orders: Orders Comprehensive Met. Panel 4 Months Z79.139 - Other intermediate project manager (current) drug therapy Complete Blood Count Auto Diff 4 Months Z79.89 - Other usp (current) drug therapy C Reactive Protein 4 Months Z79.89 - Other intermediate project manager (current) drug therapy Erythrocyte Sedimentation Rate 4 Months Z79.89 - Other usp (current) drug therapy Referrals Infusion Center Notification M05.9 - Rheumatoid arthritis with rheumatoid factor, unspecified Medications: New prednisone Take 2 tablets for 14 days then 1.5 tablets for 3 days then complete taper previously given 10 mg PO DIRECTED 35 tabs 0RF M05.9 - Rheumatoid arthritis with rheumatoid factor, unspecified Coding Level of Care Code Est Pt Level 4 (70843) Complex EM visit Add On G2211 Diagnoses Seropositive rheumatoid arthritis M05.9 Encounter for monitoring golimumab therapy Z51.81; Z79.620
[2025-04-20 14:43] VITALS: BP 134/90; PULSE 78; O2SAT 98; BMI 31.6
--- OUTSIDE RECORDS SUMMARY | 2025-04-20 16:00 | XMS_ITS | Clinical Summary ---
Author Organization [facility] Address [facility] [employer]. [address] [address] Phone Care Team Providers Care Acupuncturist Name Role Phone Litzy Willis MD Primary [...] topic Medical Devices Not on file Insurance [employer] [place] [address] [address] [id number] [employer] [facility] [employer] [place] [address] [place] [address] [employer] [facility] [employer] [place] [address] [place] [address] [employer] [place] [address] [address] [employer] [place] [address] [place] [address] [employer] Care Teams Acupuncturist Relationship Specialty Start Date End Date Litzy Willis MD [address] [place] [address] PCP - General 06/10/21 Additional Source Comments The information contained in this document represents components of the legal health record. It is not the complete legal health record.[facility]
--- OUTSIDE RECORDS SUMMARY | 2025-04-20 16:00 | XMS_ITS | Clinical Summary ---
Author Organization [facility] Address [address] [place] [address] Care Team Providers Care Sap Basis Administrator Name Role Phone Jackie Corbett MD Primary [...] age to complete this topic Care Teams Sap Basis Administrator Relationship Specialty Start Date End Date [place]-Jackie Escobar MD PCP - General Internal Medicine 03/27/20
--- OUTSIDE RECORDS SUMMARY | 2025-04-20 16:00 | XMS_ITS | Clinical Summary ---
Author Organization [facility] Address [address] [place] [address] Phone Care Team Providers Care Endoscopy Technician Name Role Phone Cynthia Sweet MD Primary Care Provider Allergies Active Allergy Reactions Criticality Noted Date [...] (diabetes mellitus), type 2 with neurological complications ([facility] V24, [facility] V28) 02/04/2021 Allergic rhinoconjunctivitis 06/18/2020 Kidney stone 10/28/2019 Episode of moderate major de pression ([facility] V24, [facility] V28) 10/03/2019 Rheumatoid arthritis ([facility] V24, [facility] V28) 10/03/2019 Overview (05/03/2024): Follows with [...] 01/11/2019 PAP Moderate asthma 01/08/2018 Convulsive disorder ([facility] V24, [facility] V28) 0 12/04/2017 Hypertension 11/28/2015 Insomnia 01/02/2015 Hemorrhoids 11/01/2013 Herpes zoster 10/25/2013 Hyperlipidemia 02/18/2011 Immunizations Immunization Administration Dates Next Due Moderna SARS-CoV-2 COVID-19, mRNA, LNP-S, preservative free 09/14/2020,08/14/2020 Pneumococcal conjugate 13 va lent (Prevnar 13, PCV13) 2mo and older 12/04/2017 Surgical History Surgery Date Site/Laterality Comments CARPAL TUNNEL RELEASE PROCEDURE: CT NEUROPLASTY &/TRANSPOS MEDIAN NRV CARPAL TUNNE SECTION PROCEDURE: CT DELIVERY ONLY PARTIAL HYSTERECTOMY 2007 PROCEDURE: CT SUPRACERVICAL ABDL HYSTER W/WO RMVL TUBE OVARY SALPINGOOPHORECTOMY Left PROCEDURE: CT LAPAROSCOPY W/RMVL ADNEXAL STRUCTURES OTHER SURGICAL HISTORY [...] guidleines- repeat co-testing one year Convulsive disorder ([facility] V24, [facility] V28) 12/04/2017 DX:Convulsive disorder (HCC) Moderate asthma 01/08/2018 DX:Moderate asth ma Insomnia 01/02/2015 DX:Insomnia Hyperlipidemia 02/18/2011 DX:Hyperlipidemi a Hypertension 11/28/2015 DX:Hypertension Rheumatoid arthritis ([facility]/ C V24, [facility] V28) 10/03/2019 DX:Rheumatoid arthritis (HCC ) Kidney stone 10/28/2019 DX:Kidney stone Anxiety 03/16/2021 DX:Anxiety DM (diabetes mellitus), type 2 with renal complications ([facility] V24, [facility] V28) 02/04/2021 DX:DM (diabetes mellitus), t ype 2 with renal complications (HCC) DM (diabetes mellitus), type 2 with neurological complications ([facility] V24, [facility] V28) 02/04/2021 DX:DM (diabetes mellitus), t ype [...] care for your loved ones. For example, residential child care counselor or elderly care for an older adult? [...] 04/28/2025 8:00 AM EDT Office Visit Endocrinology [address] [phone] Gemma Ferris PA [address] [place] [address] 09/20/2025 4:00 PM EST Office Visit [facility] - [address] [phone] Cynthia Sweet MD [address] [place], [place] Health Maintenance Due Date Last Done [...] BLOOD ORDERABLES Final Result Performing Organization Address City/[facility]/ZIP Co de Phone Number [facility] [address] [place] [address], [place] [phone] * Microalbumin creatinine urine ratio (10/12/2024 8:23 [...] URINE ORDERABLES Final Result Performing Organization Address City/[facility]/ZIP Co de Phone Number [facility] [address] [place] [address], * (ABNORMAL) Hemoglobin A1c (10/12/2024 8:23 AM EDT) Pathologist [facility] Hemoglobin A1C 6.5(H) <6.5 % LAB CHEMISTRY [...] Result [facility] [address] [place] [address], * (ABNORMAL) Basic metabolic panel (10/12/2024 8:23 AM EDT) [facility] Sodium 138 133 - 145 mmol/L LAB CHEMISTRY METHOD 10/12/2024 11:31 AM [facility] Potassium 4.5 3.5 - 5.5 mmol/L LAB CHEMISTRY METHOD 10/12/2024 11:31 AM [facility] Chloride 103 96 - 110 mmol/L LAB CHEMISTRY METHOD 10/12/2024 11:31 AM [facility] CO2 30 21 - 32 mmol/L LAB CHEMISTRY METHOD 10/12/2024 11:31 AM [facility] Anion Gap 5 3 - 11 LAB CHEMISTRY METHOD 10/12/2024 11:31 AM [facility] Glucose 131(H) 70 - 100 mg/dL LAB CHEMISTRY METHOD 10/12/2024 11:31 AM [facility] BUN 12 5 - 25 mg/dL LAB CHEMISTRY METHOD 10/12/2024 11:31 AM EDT [facility] Creatinine 0.71 0.50 - 1.10 mg/dL LAB CHEMISTRY METHOD 10/12/2024 11:31 AM EDT [facility] eGFR 99 >=60 mL/min/1. 73m2 LAB CHEMISTRY METHOD 10/12/2024 11:31 AM EDT [facility] Comment:Calculation based on the Chronic Kidney Disease Epidemiology Collaboration (CKD-EPI) equation refit without adjustment for race. BUN/Creatinine Ratio 16.9 LAB CHEMISTRY METHOD 10/12/2024 11:31 AM EDT [facility] Calcium 9.5 8.5 - 10.5 mg/dL LAB CHEMISTRY METHOD 10/12/2024 11:31 AM EDT [facility] Blood Venous blood specimen / Unknown Venipuncture / Unknown 10/12/2024 8:23 AM EDT 10/12/2024 8:23 AM EDT Gemma MONTALVO LAB BLOOD ORDERABLES Final Result [facility] [address] [place] [address], * COLONOSCOPY Anesthesia - MAC; [facility] ENDOSCOPY (06/15/2024 8:38 AM EST) Anatomical [...] or Metamucil. Narrative 06/15/2024 8:38 AM EST [facility] Patient Name: Neisha Gutierrez Procedure [...] was minimal. Procedure Code(s): --- Professional --- 54699, Colonoscopy, flexible; with removal of tumor(s), polyp(s), or other lesion(s) by snare technique Diagnosis Code(s): --- Professional --- Z12.11, Encounter for screening for malignant neoplasm of colon K64.0, First degree hemorrhoids D12.0, Benign neoplasm of cecum K57.30, Diverticulosis of large intestine without perforation or abscess without bleeding CPT copyright 2020 [employer]. All rights reserved. The codes documented in this report are preliminary and upon regulator mechanic review may be revised to meet current compliance requirements. Marco Hagan MD 06/15/2024 8:38:50 AM This report has been signed electronically.Marco Hagan MD Number of Addenda: 0 Note Initiated On: 06/15/2024 8:15 AM Scope In: Scope Out: Endoscopy Department at [facility] - [address] [place] [phone] Procedure Note Marco Hagan MD - 06/15/2024 [facility] Patient Name: Neisha Gutierrez Procedure [...] was minimal. Procedure Code(s): --- Professional --- 39522, Colonoscopy, flexible; with removal of tumor(s), polyp(s), or other lesion(s) by snare technique Diagnosis Code(s): --- Professional --- Z12.11, Encounter for screening for malignantneoplasm of colon K64.0, First degree hemorrhoids D12.0, Benign neoplasm of cecum K57.30, Diverticulosis of large intestine without perforation or abscess without bleeding CPT copyright 2020 [employer]. All rights reserved. The codes documented in this report are preliminary and upon regulator mechanic reviewmay be revised to meet current compliance requirements. Marco Hagan MD 06/15/2024 8:38:50 AM This report has been signed electronically.Marco Hagan MD Number of Addenda: 0 Note Initiated On: 06/15/2024 8:15 AM Scope In: Scope Out: Endoscopy Department at [facility] - [address] [place] [phone] IMPRESSION: - Internal hemorrhoids. - Diverticulosis in [...] Resul t * Depression Screening (03/23/2024) Pathologist [facility] Depression Screening abstracted Historical Provider HEALTH MAINTENANCE Final Result * Diabetes Foot Exam (06/09/2023) Pathologist [facility] Diabetes: Annual Foot Exam abstracted Result [facility] Historical Provider HEALTH MAINTENANCE Final Result * HIV Screening (01/11/2019) [facility] HIV Screening abstracted [facility] Provider HEALTH MAINTENANCE Final Result * Hepatitis C Screening (01/11/2019) [facility] Hepatitis C Screening abstracted Historical Provider HEALTH MAINTENANCE Final Result * Pap smear (01/11/2019) 01/11/2019 Narrative HISTORICAL TESTING LAB RESULTING AGENCY - 01/24/2019 7:50 AM EDT [id number] THINPREP PAP, IMAGED: NEGATIVE FOR SQUAMOUS INTRAEPITHELIAL [...] PAP HX POSITIVE HPV 01/08/18 [facility] Albarran [facility] CYTOLOGY ORDERABLES Final Result HISTORICAL TESTING LAB RESULTING AGENCY * REYNA SCREENING DIGITAL (12/30/2017 2:34 PM EDT) Anatomical Region Laterality Modality Mammography 12/30/2017 8:07 AM EDT Narrative 12/30/2017 2:34 PM EDT [facility] Diagnostic Imaging Department [address] [place] [address] Patient: MATT,NEISHA Puente /Age/Sex: 1965 - 52 - F Unit#: [id number] Location/Status: SPDIMAM/REG CLI Mnemonic/Ordering Site: [facility] Ordering Physician: YONG ROLLE MD Reyna Screening Digital - 12/30/17 - 0844 EXAM: [facility] Screening Digital EXAM DATE AND TIME: 12/30/2017 8:46 AM HISTORY: Screening. Multiple family members with breast carcinoma including mother, age 38, sister, age 26, and maternal aunt, at age 40. COMPARISON: 12/07/09 ([facility], [place], [place]) TECHNIQUE: CC and MLO views of both breasts were obtained using full field digital mammography. Bilateral digital breast tomosynthesis was performed in the MLO projection. Computer aided detection with the [employer] 7.2-H was employed. TISSUE DENSITY: b. There [...] Routine screening mammogram BILATERAL in 1 year. 30410, 30660 3341F, 7025F Dictating Physician: SKYE BARLOW MD Electronically Signed by: SKYE BARLOW MD Dic Date/Time: 12/30/17 1433 Sign date/Time: 12/30/17 1434 Procedure Note Skye Barlow MD - 07/08/2022 [facility] Diagnostic Imaging Department [address] [place] [id number] Patient: KANWAL GUTIERREZBERNARDO Puente D.O.B./Age/Sex: 1965 - 52 - F Unit#: [id number] Location/Status: [facility]/REG CLI Mnemonic/Ordering Site: [facility] Ordering Physician: YONG ROLLE MD Reyna Screening Digital - 12/30/17 - 44 EXAM: Reyna Screening Digital EXAM DATE AND TIME: 12/30/2017 8:46 AM HISTORY: Screening. Multiple family members with breast carcinomaincluding mother, age 38, sister, age 26, and maternal aunt, at age 40. COMPARISON: 12/07/09 ([place], [place]) TECHNIQUE: CC and MLO views of both breasts were obtained using fullfield digital mammography. Bilateral digital breast tomosynthesis was performedin the MLO projection. Computer aided detection with the [employer] Solar 7.2-Bluedas employed. TISSUE DENSITY: b. There are scattered [...] Routine screening mammogram BILATERAL in 1 year. [address]806, 65570 3341F, 7025F Dictating Physician: SKYE BARLOW MD Electronically Signed by: SKYE BARLOW MD Dic Date/Time: 12/30/17 1433 Sign date/Time: 12/30/17 1434 Yong Rolle MD IMG BI PROCEDURES Final Resu lt from Last 3 Months or Most Recently Relevant to Health Maintenance Insurance [facility] Advance Directives * Full Code - [...] currently active code status orders. Care Teams Endoscopy Technician Relationship Specialty Start Date End Date Cynthia Sweet MD [address] [place] [phone] PCP - General Internal Medicine 06/22/24
== END 2025-04-20 15:27 | disposition home or self-care (01) ==
LOC: HO.RHES 14:24
PROVIDERS: PCP Student in an Organized Health Care Education/Training Program; Visit Provider Student in an Organized Health Care Education/Training Program
DX: M05.9 Rheumatoid arthritis with rheumatoid factor, unspecified (principal); Z51.81 Encounter for therapeutic drug level monitoring; Z79.620 Long term (current) use of immunosuppressive biologic
CPT/HCPCS: 99214

== ENCOUNTER → 2025-04-20 14:23 | Outpatient (BNVA) | payer OTHER, SELFPAY | PROVIDERS: PCP Student in an Organized Health Care Education/Training Program; Visit Provider Student in an Organized Health Care Education/Training Program | DX: M05.79 Rheumatoid arthritis with rheumatoid factor of multiple sites without organ or systems involvement (principal); Z51.81 Encounter for therapeutic drug level monitoring; Z79.620 Long term (current) use of immunosuppressive biologic | CPT/HCPCS: 99212 ==

== ENCOUNTER 2025-05-26 08:01 | Outpatient (AMB) | payer OTHER, SELFPAY ==
--- OUTSIDE RECORDS SUMMARY | 2025-05-26 08:06 | XMS_ITS | Clinical Summary ---
Author Organization [facility] Address [address] [place] [address] Care Team Providers Care Building Analyst/Supervisor Name Role Phone Jackie Corbett MD Primary [...] age to complete this topic Care Teams Building Analyst/Supervisor Relationship Specialty Start Date End Date [place]-Jackie Escobar MD PCP - General Internal Medicine 03/27/20
--- OUTSIDE RECORDS SUMMARY | 2025-05-26 08:06 | XMS_ITS | Clinical Summary ---
Author Organization [facility] Address [address] [place] [address] Phone Care Team Providers Care High Density Finishing Operator Name Role Phone Cynthia Sweet MD Primary Care Provider [phone] Allergies Active Allergy Reactions Criticality Noted Date [...] 3 times daily. To check BS 03/27/20 Active blood sugar diagnostic (FreeStyle Lite Strips) [...] PLEASE SEE ATTACHED FOR DETAILED DIRECTIONS 09/12/19 Active glucagon (Baqsimi) 3 mg/actuation nasal spray [...] hours before your procedure. 4000 mL 06/01/20 Active Additional Information Patient not taking.Reason: Other (therapy completed), Reported on 05/02/2025 amitriptyline (ELAVIL) 100 mg tablet Take 1 tablet (100 mg total) by mouth. at bedtime for 30 days 03/08/20 Active hydrOXYzine HCL (ATARAX) 25 mg tablet Take 1 tablet (25 mg total) by mouth 2 (two) times a day if needed. 05/10/20 Active rizatriptan (MAXALT) 10 mg tablet TAKE 1 TAB AT ONSET OF MIGRAINE EVERY 4 HOURS UP TO 2 PER 24 HOURS DIRECTED 04/19/20 24 Active sucralfate (CARAFATE) 100 mg/mL suspension Take 10 mL (1 g total) by mouth. 03/30/20 24 Active gabapentin (NEURONTIN) 100 mg capsuleIndicatio ns:Type 2 diabetes mellitus with other diabetic neurological complication (CMS/[facility] V24, CMS/[facility] V28) Take 1 capsule by mouth twice daily. TAKE IN ADDITION TO 300MG TWICE DAILY NEEDED 180 capsule 06/23/20 24 Active gabapentin (NEURONTIN) 300 mg capsuleIndicatio ns:Type 2 diabetes mellitus with other diabetic neurological complication (CMS/HCC V24, CMS/[facility]ER[facility] V28) TAKE 1 CAPSULE BY MOUTH TWICE [...] daily dose 40 units 15 mL 11 09/06/19 25 Active pen needle, diabetic 32 gauge x 5/32 needle Use 4 times a day with insulin 100 each 5 10/13/19 25 Active omeprazole (PriLOSEC) [address] capsule TAKE 1 CAPSULE BY MOUTH 2 TIMES DAILY (BEFORE MEALS). 180 capsule 1 10/20/19 25 Active atorvastatin (LIPITOR) 10 mg tablet Take 1 tablet (10 mg total) by mouth at bedtime. 90 each 1 11/16/19 25 Active famotidine (PEPCID) 20 mg tablet TAKE 1 TABLET BY MOUTH TWICE A DAY 180 tablet 1 03/09/20 25 Active predniSONE (DELTASONE) 10 mg tablet Take 1 tablet (10 mg total) by mouth. 04/20/20 25 Active predniSONE (DELTASONE) 5 mg tablet Take 1 tablet (5 mg total) by mouth. 04/18/20 25 Active insulin lispro 100 unit/mL injection -Administer within 15 minutes of a mealInject 120 Units as directed See Admin Instructions. UP TO 120 UNITS DAILY VIA INSULIN PUMP 30 mL 11 05/02/20 25 Active insulin lispro 100 unit/mL injection -Administer within 15 minutes of a mealInject 120 Units as directed See Admin Instructions. 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 V24, [facility] V28) 05/02/2025 Mass of left wrist 06/21/2024 De Quervain's tenosynovitis 06/21/2024 IBS (irritable bowel syndrome) 05/03/2024 History of drug use 05/03/2024 Overview (05/03/2024): H/o opioid withdrawal Insulin pump in place 05/24/2021 Anxiety 03/16/2021 DM (diabetes mellitus), type 2 with neurological complications ([facility] V24, [facility] V28) 02/04/2021 Allergic rhinoconjunctivitis 06/18/2020 Kidney stone 10/28/2019 Episode of moderate major de pression ([facility] V24, [facility] V28) 10/03/2019 Rheumatoid arthritis ([facility] V24, [facility] V28) 10/03/2019 Overview (05/03/2024): Follows with Dr. Jo at [facility]. Medication free remission since 2020 Elevated TSH 08/18/2018 CTS (carpal tunnel syndrome) 02/24/2018 Depression 02/24/2018 Fibromyalgia 02/24/2018 Vitamin D deficiency 02/24/2018 Abnormal Pap smear of cervix 01/18/2018 Overview (05/03/2024): 12/2017 PAP Cytology neg, + HPV, ( neg) Per [facility] landon- repeat co-testing one year 01/11/2019 PAP Moderate asthma 01/08/2018 Convulsive disorder ([facility] V24, [facility] V28) 0 12/04/2017 Hypertension 11/28/2015 Insomnia 01/02/2015 Hemorrhoids 11/01/2013 Herpes zoster 10/25/2013 Hyperlipidemia 02/18/2011 Encounters Date Type Department Care Team Description 05/03/2025 Telephone Adult Medicine [address] [phone] Cynthia Sweet MD 05/03/2025 Telephone Endocrinology [address] [phone] Gemma Ferris PA 05/02/2025 9:30 AM EDT Office Visit [address] [phone] Gemma Ferris PA Type 2 diabetes mellitus with complication, with assisted current use of insulin pump ([facility] V24, [facility] V28) (Primary Dx); Secondary hypertension; Hyperlipidemia, unspecified hyperlipidemia type from Last 3 Months Immunizations Immunization Administration Dates Next Due Moderna SARS-CoV-2 COVID-19, mRNA, LNP-S, preservative free 09/14/2020,08/14/2020 Pneumococcal conjugate 13 va lent (Prevnar 13, PCV13) 2mo and older 12/04/2017 Surgical History Surgery Date Site/Laterality Comments CARPAL TUNNEL RELEASE PROCEDURE: IN NEUROPLASTY &/TRANSPOS MEDIAN NRV CARPAL TUNNE SECTION PROCEDURE: IN DELIVERY ONLY PARTIAL HYSTERECTOMY 2007 PROCEDURE: IN SUPRACERVICAL ABDL HYSTER W/WO RMVL TUBE OVARY SALPINGOOPHORECTOMY Left PROCEDURE: IN LAPAROSCOPY W/RMVL ADNEXAL STRUCTURES OTHER SURGICAL HISTORY [...] landon- repeat co-testing one year Convulsive disorder ([facility]/HCC V24, [facility] V28) 12/04/2017 DX:Convulsive disorder (HCC) Moderate asthma 01/08/2018 DX:Moderate asth ma Insomnia 01/02/2015 DX:Insomnia Hyperlipidemia 02/18/2011 DX:Hyperlipidemi a Hypertension 11/28/2015 DX:Hypertension Rheumatoid arthritis ([facility] V24, [facility] V28) 10/03/2019 DX:Rheumatoid arthritis (HCC ) Kidney stone 10/28/2019 DX:Kidney stone Anxiety 03/16/2021 DX:Anxiety DM (diabetes mellitus), type 2 with renal complications (CMS/HCC V24, CMS/HCC V28) 02/04/2021 DX:DM (diabetes mellitus), t ype 2 with renal complications (HCC) DM (diabetes mellitus), type 2 with neurological complications (CMS/HCC V24, CMS/HCC V28) 02/04/2021 DX:DM [...] ed Within the last 3 months, ho brady many times did you visit the emergency [...] for your loved ones. For example, child development professor or elderly care for an older adult? [...] Sign Reading Time Taken Comments Blood Pressure 142/80 05/02/2025 9:42 AM EDT Pulse 74 05/02/2025 9:42 AM EDT Temperature 36.2 C (97.1 F) 05/02/2025 9:24 AM EDT Respiratory Rate 14 11/15/2024 3:22 PM EDT Oxygen Saturation 94% 07/22/2024 9:24 AM EST Inhaled Oxygen Concentration - - Weight 79.3 kg (174 lb 12.8 oz) 05/02/2025 9:24 AM EDT Height 154.9 cm (5' 1 ) 05/02/2025 9:24 AM EDT Body Mass Index 33.03 05/02/2025 9:24 AM EDT Plan of Treatment Upcoming Encounters Date Type Department Care Team (Late st Contact Info) Description 06/07/2025 9:45 AM EST Office Visit Adult Medicine [address] [phone] Amber Jacobson PA [address] [place] [address] 06/28/2025 8:00 AM EST Office Visit Endocrinology - [place] [phone] Gemma Ferris PA [address] [place] [address] 09/20/2025 4:00 PM EST Office Visit Adult Medicine [address] [phone] Cynthia Sweet MD [address] [place] [address] Health Maintenance Due Date Last Done Comments DTaP,Tdap,and Td Vaccines (1 - Tdap) 1985 Hepatitis B Vaccines (1 of 3 - 19+ 3-dose series) 1985 RSV Immunization Adult Patients (1 - Risk 50-74 years 1-dose series) 2016 Zoster Vaccines (1 of 2) 2016 Pneumococcal [...] mg/dL LAB CHEMISTRY METHOD 10/12/2024 11:32 AM [facility] Triglycerides 288(H) 0 - 150 mg/dL LAB CHEMISTRY METHOD 10/12/2024 11:32 AM [facility] HDL 40 >=40 mg/dL LAB CHEMISTRY METHOD 10/12/2024 11:32 AM [facility] LDL Calculated 141(H) 0 - 100 mg/dL LAB CHEMISTRY METHOD 10/12/2024 11:32 AM [facility] VLDL Cholesterol Nino 57.6 mg/dL LAB CHEMISTRY METHOD 10/12/2024 11:32 AM [facility] Non HDL Chol. (LDL+VLDL) 199(H) <145 mg/dL LAB CHEMISTRY METHOD 10/12/2024 11:32 AM [facility] Chol/HDL Ratio 6.0(H) 0.0 - 4.4 LAB CHEMISTRY METHOD 10/12/2024 11:32 AM EDT [facility] Blood Venous blood specimen / Unknown Venipuncture / Unknown 10/12/2024 8:23 AM EDT 10/12/2024 8:23 AM EDT Gemma MONTALVO LAB BLOOD ORDERABLES Final Result [facility] [address] [place] [address], [place] [phone] * Microalbumin creatinine urine ratio (10/12/2024 8:23 AM EDT) Creatinine, Urine 156.0 mg/dL LAB CHEMISTRY METHOD 10/12/2024 1:39 PM EDT [facility] Microalb, Ur 14.0 0.0 - 29.0 mg/L LAB CHEMISTRY METHOD 10/12/2024 1:39 PM EDT [facility] Microalb/Creat Ratio 9 <30 mg/g creat LAB CHEMISTRY METHOD 10/12/2024 1:39 PM EDT [facility] Urine Urine specimen from urethra / Unknown Non-blood Collection / Unknown 10/12/2024 8:23 AM EDT 10/12/2024 8:23 AM EDT Gemma MONTALVO LAB URINE ORDERABLES Final Result Performing Organization Address City/[facility]/ZIP Co de Phone Number [facility] [address] [place] [address], [place] [phone] * (ABNORMAL) Hemoglobin A1c (10/12/2024 8:23 AM EDT) Hemoglobin A1C 6.5(H) <6.5 % LAB CHEMISTRY METHOD 10/12/2024 2:27 PM EDT [facility] Mean Bld Glu Estim. 140 mg/dL LAB CHEMISTRY METHOD 10/12/2024 2:27 PM [facility] Blood Venous blood specimen / Unknown Venipuncture / Unknown 10/12/2024 8:23 AM EDT 10/12/2024 8:23 AM EDT us Gemma MONTALVO LAB BLOOD ORDERABLES Final Result [facility] [address] [place] [address], [place] [phone] * (ABNORMAL) Basic metabolic panel (10/12/2024 8:23 AM EDT) Sodium 138 133 - 145 mmol/L LAB CHEMISTRY METHOD 10/12/2024 11:31 AM [facility] Potassium 4.5 3.5 - 5.5 mmol/L LAB CHEMISTRY METHOD 10/12/2024 11:31 AM [facility] Chloride 103 96 - 110 mmol/L LAB CHEMISTRY METHOD 10/12/2024 11:31 AM [facility] CO2 30 21 - 32 mmol/L LAB CHEMISTRY METHOD 10/12/2024 11:31 AM [facility] Anion Gap 5 3 - 11 LAB CHEMISTRY METHOD 10/12/2024 11:31 AM [facility] Glucose 131(H) 70 - 100 mg/dL LAB CHEMISTRY METHOD 10/12/2024 11:31 AM [facility] BUN 12 5 - 25 mg/dL LAB CHEMISTRY METHOD 10/12/2024 11:31 AM [facility] Creatinine 0.71 0.50 - 1.10 mg/dL LAB CHEMISTRY METHOD 10/12/2024 11:31 AM [facility] eGFR 99 >=60 mL/min/1. 73m2 LAB CHEMISTRY METHOD 10/12/2024 11:31 AM [facility] Comment:Calculation based on the Chronic Kidney Disease Epidemiology Collaboration (CKD-EPI) equation refit without adjustment for race. BUN/Creatinine Ratio 16.9 LAB CHEMISTRY METHOD 10/12/2024 11:31 AM EDT [facility] Calcium 9.5 8.5 - 10.5 mg/dL LAB CHEMISTRY METHOD 10/12/2024 11:31 AM EDT [facility] Blood Venous blood specimen / Unknown Venipuncture / Unknown 10/12/2024 8:23 AM EDT 10/12/2024 8:23 AM EDT us Gemma MONTALVO LAB BLOOD ORDERABLES Final Result [facility] [address] [place] [address], [place] [phone] * COLONOSCOPY Anesthesia - MAC; [facility] ENDOSCOPY (06/15/2024 8:38 AM EST) Anatomical [...] or Metamucil. Narrative 06/15/2024 8:38 AM EST [facility] GI Patient Name: Neisha Gutierrez Procedure Date: [...] was minimal. Procedure Code(s): --- Professional --- 46606, Colonoscopy, flexible; with removal of tumor(s), polyp(s), or other lesion(s) by snare technique Diagnosis Code(s): --- Professional --- Z12.11, Encounter for screening for malignant neoplasm of colon K64.0, First degree hemorrhoids D12.0, Benign neoplasm of cecum K57.30, Diverticulosis of large intestine without perforation or abscess without bleeding CPT copyright 2021 [employer]. All rights reserved. The codes documented in this report are preliminary and upon marine firer review may be revised to meet current compliance requirements. Marco Hagan MD 06/15/2024 8:38:50 AM This report has been signed electronically.Marco Hagan MD Number of Addenda: 0 Note Initiated On: 06/15/2024 8:15 AM Scope In: Scope Out: Endoscopy Department at [facility] - [address] [place] [phone] Procedure Note Marco Hagan MD - 06/15/2024 [facility] GI Patient Name: Neisha Gutierrez Procedure Date: [...] was minimal. Procedure Code(s): --- Professional --- 71487, Colonoscopy, flexible; with removal of tumor(s), polyp(s), or other lesion(s) by snare technique Diagnosis Code(s): --- Professional --- Z12.11, Encounter for screening for malignantneoplasm of colon K64.0, First degree hemorrhoids D12.0, Benign neoplasm of cecum K57.30, Diverticulosis of large intestine without perforation or abscess without bleeding CPT copyright 2020 [employer]. All rights reserved. The codes documented in this report are preliminary and upon marine firer reviewmay be revised to meet current compliance requirements. Marco Hagan MD 06/15/2024 8:38:50 AM This report has been signed electronically.Marco Hagan MD Number of Addenda: 0 Note Initiated On: 06/15/2024 8:15 AM Scope In: Scope Out: Endoscopy Department at [facility] - [address] [place] [phone] IMPRESSION: - Internal hemorrhoids. - Diverticulosis in [...] Resul t * Depression Screening (03/23/2024) Pathologist [facility] Depression Screening abstracted Historical Provider HEALTH MAINTENANCE Final Result * Diabetes Foot Exam (06/09/2023) Pathologist [facility] Diabetes: Annual Foot Exam abstracted Historical Provider HEALTH MAINTENANCE Final Result * HIV Screening (01/11/2019) [facility] HIV Screening abstracted Historical Provider HEALTH MAINTENANCE Final Result * Hepatitis C Screening (01/11/2019) Pathologist [facility] Hepatitis C Screening abstracted Historical Provider HEALTH MAINTENANCE Final Result * Pap smear (01/11/2019) 01/11/2019 Narrative HISTORICAL TESTING LAB RESULTING AGENCY - 01/24/2019 7:50 AM EDT [id number] THINPREP PAP, IMAGED: NEGATIVE FOR SQUAMOUS INTRAEPITHELIAL LESION AND MALIGNANCY . GRETCHEN SANDHU(ASCP) (CASE ELECTRONICALLY SIGNED 01 21 2019) RESULT OF APTIMA HIGH RISK HPV ASSAY: HIGH RISK HPV: NEGATIVE (SEROTYPES 16,18,31,33,35,39,45,51,52,56,58,59,66,68) COMPLETED ON 2019-01-14 ADEQUACY: SATISFACTORY ENDOCERVICAL/TRANSFORMATION ZONE COMPONENT PRESENT. SOURCE: THINPREP PAP HPV ANY DX: REFLEX 16 AND 18, CERVICAL, IMAGED CLINICAL INFORMATION: HPV ANY DIAGNOSIS. Z12.4, Z01.419, HYSTERECTOMY, PAP HX POSITIVE HPV 01/08/18 Jhoana Albarran [facility] CYTOLOGY ORDERABLES Final Result HISTORICAL TESTING LAB RESULTING AGENCY * [facility] SCREENING DIGITAL (12/30/2017 2:34 PM EDT) Anatomical Region Laterality Modality Mammography 12/30/2017 8:07 AM EDT Narrative 12/30/2017 2:34 PM EDT [facility] Diagnostic Imaging Department [address] [place] [id number] Patient: NEISHA GUTIERREZ /Age/Sex: 1965 - 52 - F Unit#: [id number] Location/Status: SPDIMAM/REG CLI Mnemonic/Ordering Site: [facility] Ordering Physician: YONG ROLLE MD [facility] Screening Digital - 12/30/17843 EXAM: [facility] Screening Digital EXAM DATE AND TIME: 12/30/2017 8:46 AM HISTORY: Screening. Multiple family members with breast carcinoma including mother, age 38, sister, age 26, and maternal aunt, at age 40. COMPARISON: 12/07/09 ([facility], [place], [place]) TECHNIQUE: CC and MLO views of both breasts were obtained using full field digital mammography. Bilateral digital breast tomosynthesis was performed in the MLO projection. Computer aided detection with the [employer] 7.2-H was employed. TISSUE DENSITY: b. There [...] Routine screening mammogram BILATERAL in 1 year. 77364, 50072 3341F, 7069F Dictating Physician: SKYE BARLOW MD Electronically Signed by: SKYE BARLOW MD Dic Date/Time: 12/30/17 1433 Sign date/Time: 12/30/17 1434 Procedure Note Skye Barlow MD - 07/08/2022 [facility] Diagnostic Imaging Department [address] [place] [id number] Patient: NEISHA GUTIERREZO.B./Age/Sex: 1965 - 52 - F Unit#: [id number] Location/Status: SPDIMA/REG CLI Mnemonic/Ordering Site: [facility] Ordering Physician: YONG ROLLE MD [facility] Screening Digital - 12/30/17 - 0844 EXAM: [facility] Screening Digital EXAM DATE AND TIME: 12/30/2017 8:46 AM HISTORY: Screening. Multiple family members with breast carcinomaincluding mother, age 38, sister, age 26, and maternal aunt, at age 40. COMPARISON: 12/07/09 ([facility], [place], [place]) TECHNIQUE: CC and MLO views of both breasts were obtained using fullfield digital mammography. Bilateral digital breast tomosynthesis was performedin the MLO projection. Computer aided detection with the [employer] 7.2-Here@ Networksas employed. TISSUE DENSITY: b. There are scattered [...] Routine screening mammogram BILATERAL in 1 year. [address]4811, 25287 3341F, 7025F Dictating Physician: SKYE BARLOW MD Electronically Signed by: SKYE BARLOW MD Dic Date/Time: 12/30/17 1433 Sign date/Time: 12/30/17 1434 Yong Rolle MD IMG BI PROCEDURES Final Resu lt from Last 3 Months or Most Recently Relevant to Health Maintenance Insurance [facility] PLAN Advance Directives * Full Code - [...] currently active code status orders. Care Teams High Density Finishing Operator Relationship Specialty Start Date End Date Cynthia Sweet MD [address] [place] [phone] PCP - General Internal Medicine 06/22/24
--- OUTSIDE RECORDS SUMMARY | 2025-05-26 08:06 | XMS_ITS | Clinical Summary ---
Author Organization [facility] Address [facility] [employer] [address] [address] Phone Care Team Providers Care Resume Specialist Name Role Phone Litzy Willis MD Primary [...] 09/11/2020, 08/14/2020 Adult Td,Tdap Booster 04/01/2026 04/01/2016 RSV VACCINE (1 - 1-dose 75+ series) 2041 HEPATITIS A VACCINES Aged Out No long [...] topic Medical Devices Not on file Insurance [employer] [place] [address] [address] [place] [address] [employer] [facility] [employer] [facility] [employer] [address] [address] [place] [address] [employer] [facility] [employer] [address] [place] [address] [facility] Care Teams Resume Specialist Relationship Specialty Start Date End Date Litzy Willis MD [address] [place] [address] PCP - General 06/10/21 Additional Source Comments The information contained in this document represents components of the legal health record. It is not the complete legal health record.[facility]
--- OUTSIDE RECORDS SUMMARY | 2025-05-26 08:06 | XMS_ITS | Encounter Summary ---
Author Organization [facility] Address [address] [place] [address] Care Team Providers Care Wealth Management Advisor Name Role Phone Cynthia Sweet MD Primary Care Provider [phone] Reason for Visit * Reason Onset Date Comments referral 05/03/2025 Encounter Details Date Type Department Care Team (Late st Contact Info) Description 05/03/2025 Telephone Endocrinology - [place] [address] [place] [address] Gemma Ferris PA [address] [place] [address] Social History Tobacco Use Types Packs/Day Years [...] Record ed Within the last 3 months, sharad w many times did you visit the [...] care for your loved ones. For example, registered nurse maternal child or elderly care for an older adult? [...] Progress Notes * Irene Ozuna RN - 05/05/2025 3:59 PM EDT Referral and last OV faxed to number below * SELVIN Hanley - 05/05/2025 1:02 PM EDT Please see referral notes. It was referred to [facility]. Please fax records * Rosita Stock - 05/03/2025 11:41 AM EDT Endocrine Call Primary endocrine provider: Gemma Ferris PA-C Is the endocrine provider in the office toady?: yes Who is calling? The patient. If not the patient or parent/guardian please check for authorization to share/verbal release. Why is the person calling? Other question/concern: Pt is requesting that the referral for field administrative assistant be faxed over to [facility] with LEIDA notes please. . Please forward toendocrine pool (p [phone]). documented in this encounter Plan of Treatment Upcoming Encounters Date Type Department Care Team (Late st Contact Info) Description 06/07/2025 9:45 AM EST Office Visit Adult Medicine [place] - [address] [phone] Amber Jacobson PA [address] [place], [place] 06/28/2025 8:00 AM EST Office Visit Endocrinology - [address] [phone] Gemma Ferris PA [address] [place] [address] 09/20/2025 4:00 PM EST Office Visit Adult Medicine [address] [phone] Cynthia Sweet MD [address] [place] [address] documented as of this encounter Visit Diagnoses Not on filedocumented in this encounter Additional Health Concerns Assessment Noted Time PHQ-9 Depression Total Score: 9 09/07/19 25 7:35 AM EST documented as of this encounter Care Teams Wealth Management Advisor Relationship Specialty Start Date End Date Cynthia Sweet MD [address] [place] [address] PCP - General Internal Medicine 06/22/24 documented as of this encounter
--- OUTSIDE RECORDS SUMMARY | 2025-05-26 08:06 | XMS_ITS | Encounter Summary ---
Author Organization [facility] Address [address] [place] [address] Care Team Providers Care Mail Handler Name Role Phone Cynthia Sweet MD Primary Care Provider [phone] Encounter Details Date Type Department Care Team (Late st Contact Info) Description 05/03/2025 Telephone Adult Medicine [address] [phone] Cynthia Sweet MD [address] [place] [address] Social History Tobacco Use Types Packs/Day Years [...] ed Within the last 3 months, sharad abreu many times did you visit the emergency [...] for your loved ones. For example, child welfare worker or elderly care for an older [...] AM EST documented as of this encounter Plan of Treatment Upcoming Encounters Date Type Department Care Team ([facility] Contact Info) Description 06/07/2025 9:45 AM EST Office Visit Adult Medicine [address] [phone] Amber Jacobson PA [address] [place] [address] 06/28/2025 8:00 AM EST Office Visit [address] [phone] Gemma Ferris PA [address] [place] [address] 09/20/2025 4:00 PM EST Office Visit Adult Medicine [address] [phone] Cynthia Sweet MD [address] [place] [address] documented as of this encounter Visit Diagnoses Not on filedocumented in this encounter Additional Health Concerns Assessment Noted Time PHQ-9 Depression Total Score: 9 09/07/19 25 7:35 AM EST documented as of this encounter Care Teams Mail Handler Relationship Specialty Start Date End Date Cynthia Sweet MD [address] [place] [address] PCP - General Internal Medicine 06/22/24 documented as of this encounter
[2025-05-26 08:18] VITALS: BMI 32.4
--- NOTE | 2025-05-26 08:18 | MHC.OFFVIS ---
Vital Signs 05/26/25 08:18 Height 5 ft 2 in Weight 177 lb BMI 32.4 Intake Visit Reasons: DM type 2 with neurological complications Intake Note: Neisha is a 59 year old female who presents today as a new patient for a diabetic foot exam. Patient glucose is currently at 116 and her last known A1c was 7.1%. She experiences numbness and tingling with a burning sensation. Patient has no previous medical history of wounds or amputation to her feet. Patient reports she has no back pain and she was previously prescribed gabapentin by her previous occupational therapy assist. She also mentions her previous occupational therapy assist had diagnosed her with Neuropathy but since office has been closed she is unable to obtain records. Allergies cefazolin (From ANCEF) Allergy (Severe, Verified 05/26/25 08:24) anaphlaxis duloxetine (Cymbalta) Allergy (Intermediate, Verified 05/26/25 08:24) Rash methotrexate Allergy (Intermediate, Verified 05/26/25 08:24) Swelling insulin glargine (From Lantus U-100 Insulin) Adverse Reaction (Severe, Verified 05/26/25 08:24) Anaphylaxis Latex Allergy (Intermediate, Uncoded 12/21/24 15:40) rash HPI Comments Details: The patient is a 59-year-old female with a past medical history as seen below presenting for a diabetic foot exam and changes to toenails x10. Patient states she has noticed the changes in coloration and thickness to the nails for many years. Patient states she has had total nail avulsions in which the nail still with the significant changes. Patient also states she experiences numbness and tingling as well as burning to the lower extremities worsened toes bilaterally. She states her A1c is around 7. Patient states her blood glucose recently spikes due to prednisone she is currently taking. Patient states she is currently on gabapentin and is in need of a refill. She denies any recent pedal injuries. She denies any other pedal concerns. 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 - Integumentary: Reports thickened, discolored, and dystrophic toenails x9. All systems reviewed & are unremarkable except as noted in HPI and below Physical Exam Vital Signs: BMI result Body Mass Index 32.4 Extrem Other: Bilateral lower extremity focused physical exam: Derm: Thickened, discolored, and dystrophic toenails times 10 with subungual debris noted. No open lesions abrasions or wounds noted. No clinical signs of infection. No discoloration or ecchymosis noted. Vascular: DP/PT pulses palpable. Capillary refill time less than 3 seconds. Temperature gradient warm to warm. Pedal hair diminished. No varicosities noted. No edema noted. Neuro: Protective sensation is grossly intact to light touch but diminished to monofilament testing. MSK: Pain on palpation to the hallux at the area of the nail centrally. No crepitus or fluctuance noted. Range of motion of the forefoot hindfoot and ankles within normal limits. Nonantalgic gait unassisted noted. Hammertoe deformities noted bilaterally. Class B and C findings noted. Office Procedures Diabetic Foot Exam G9226 - Diabetic Foot Exam Results Reviewed Results Reviewed: Laboratory Tests 04/18/25 15:43 Random Glucose 97 AST 40 H ALT 28 Ordered new labs to be performed prior to next visit. Assessment & Plan Assessment & Plan (1) Tinea unguium: Code(s): B35.1 - Tinea unguium Category: Medical (2) Type 2 diabetes mellitus: Code(s): E11.9 - Type 2 diabetes mellitus without complications Category: Medical Qualifiers: Diabetes mellitus complication status: with other specified complication (3) Diabetic neuropathy: Code(s): E11.40 - Type 2 diabetes mellitus with diabetic neuropathy, unspecified Category: Medical Qualifiers: Diabetes mellitus type: type 2 Diabetes mellitus complication detail: diabetic polyneuropathy Qualified Code(s): E11.42 - Type 2 diabetes mellitus with diabetic polyneuropathy (4) Nail dystrophy: Code(s): L60.3 - Nail dystrophy Category: Medical (5) Nail disorder: Code(s): L60.9 - Nail disorder, unspecified Category: Medical Plan Patient was informed and verbally consented to the use of an ambient scribe for clinic note documentation during this visit. Educated patient on diabetes and the effects on the lower extremities bilaterally. I discussed with the patient the management of her neuropathic pain and the need for a gabapentin refill, medication to be dispensed after refilled medication has been completed. We also talked about starting a topical antifungal treatment for her onychomycosis and considering oral medication based on lab results. The patient was advised to return in 9 weeks for diabetic nail care and further evaluation. - Prescribed gabapentin to be dispensed after recent refill (04/2025) has been completed. - Prescribed ciclopirox to be applied daily with nail buffing/filing between each application. - Consider oral antifungal medication pending lab results. - Advised patient to keep feet clean and dry as well as socks and shoes. - Advised patient to avoid barefoot walking and to wear supportive shoe gear. - Continue diabetic management as per PCP and silk screen etcher. RTC in 9 weeks. Orders: Orders Complete Blood Count Auto Diff Today B35.1 - Tinea unguium Comprehensive Met. Panel Today B35.1 - Tinea unguium Hemoglobin A1c Today E11.9 - Type 2 diabetes mellitus without complications AMB Diabetic Foot Exam Today E11.40 - Type 2 diabetes mellitus with diabetic neuropathy, unspecified, E11.9 - Type 2 diabetes mellitus without complications Medications: New gabapentin as directed 100 mg PO TID 90 caps 1RF E11.40 - Type 2 diabetes mellitus with diabetic neuropathy, unspecified ciclopirox 8% 1 appl topical BEDTIME 6.6 mL 1RF 4 weeks B35.1 - Tinea unguium Coding Level of Care Code New Pt Level 4 (35293) Diagnoses Tinea unguium B35.1 Type 2 diabetes mellitus E11.9 Diabetes mellitus complication status: with other specified complication Diabetic polyneuropathy associated with type 2 diabetes mellitus E11.42 Diabetes mellitus type: type 2 Diabetes mellitus complication detail: diabetic polyneuropathy Nail dystrophy L60.3 Nail disorder L60.9 CPT Codes Diabetic Foot Exam - CPT: G9226 - Diabetic Foot Exam ([id number]) Time Spent (min) 55
== END 2025-05-26 08:36 | disposition home or self-care (01) ==
LOC: HO.HPODS 08:02
PROVIDERS: Visit Provider Student in an Organized Health Care Education/Training Program
DX: B35.1 Tinea unguium (principal); E11.42 Type 2 diabetes mellitus with diabetic polyneuropathy; L60.3 Nail dystrophy; L60.9 Nail disorder, unspecified
CPT/HCPCS: 99204; G9226

== ENCOUNTER 2025-05-26 08:01 | Outpatient (REF) | payer OTHER, SELFPAY ==
[2025-05-26 13:16] LABS: MANUAL DIFF FLAG NO
[2025-05-26 13:44] LABS: Hematocrit 44.2 % (37.0-47.0); Hemoglobin 14.7 g/dl (12.0-16.0); Imm Gran Abs Auto 0.02 X10*3/uL (0.00-0.03); Imm Gran Pct Auto 0.3 % (0.0-0.4); Lymphocytes Absolute Auto 3.3 X10*3/uL (1.2-4.9); Mean Corpuscular HGB Conc 33.3 g/dl (31.0-35.0); Mean Corpuscular Hemoglobin 29.5 pg (27.0-33.0); Mean Corpuscular Volume 88.8 fL (80.0-98.0); NRBC Abs Auto 0.000 X10*3/uL (0.0-0.012); NRBC Pct Auto 0.0 /100WBC (0.0-0.2); Platelet Count 503 X10*3/uL (160-400); Red Blood Count 4.98 X10*6/uL (4.20-5.50); White Blood Count 7.9 X10*3/uL (4.8-10.8)
[2025-05-26 14:06] LABS: Alanine Aminotransferase 18 U/L (0-31); Albumin Level 4.6 g/dL (3.5-5.0); Alkaline Phosphatase 65 U/L (39-117); Anion Gap 11 (12-20); Aspartate Amino Transferase 21 U/L (5-31); Blood Urea Nitrogen 18 mg/dL (9-16); Calcium 10.0 mg/dL (8.4-10.2); Carbon Dioxide 31 mmol/L (22-29); Chloride 104 mmol/L (96-108); Estimated Glomerular Filt Rate > 60; Potassium 3.9 mmol/L (3.3-5.1); Sodium 142 mmol/L (135-145); Total Protein 7.6 g/dL (6.5-8.0)
== END 2025-05-26 08:02 | disposition home or self-care (01) ==
LOC: HO.HKASLDS 08:01
PROVIDERS: PCP Internal Medicine; Visit Provider Student in an Organized Health Care Education/Training Program
DX: E11.42 Type 2 diabetes mellitus with diabetic polyneuropathy (principal); L60.3 Nail dystrophy; B35.1 Tinea unguium; Z79.52 Long term (current) use of systemic steroids
CPT/HCPCS: 36415; 80053; 83036; 85025; 99202

== ENCOUNTER 2025-06-06 11:30 | Outpatient (RCR) | payer OTHER, SELFPAY ==
[2025-05-09 13:30] VITALS: BP 136/74; PULSE 85; RESP 18; TEMP 36.2; O2SAT 97
[2025-06-06 10:29] VITALS: BP 143/78; PULSE 77; RESP 16; TEMP 36.1; O2SAT 96
--- NOTE | 2025-06-06 11:49 | HO.INF ---
after infusion finished, pt mentioned that her vision felt slightly blurry and feels mild pressure in her eyes. she stated this happened after the first infusion as well and lasted the day. side effects looked up on uptodate; one listed side effect was optic neuritis for opthalmic side effects. pt made aware to call dr granados's office and let her know. i will also send a workload to the office about pts complaint r/t maryana kaufman.
== END 2025-06-07 12:57 | disposition home or self-care (01) ==
LOC: HO.INF 11:30
PROVIDERS: Visit Provider Student in an Organized Health Care Education/Training Program
DX: M05.9 Rheumatoid arthritis with rheumatoid factor, unspecified (principal)
CPT/HCPCS: 96365; J1602

== ENCOUNTER 2025-06-30 15:22 | Outpatient (AMB) | payer OTHER, SELFPAY ==
--- OUTSIDE RECORDS SUMMARY | 2025-06-28 08:00 | XMS_ITS | Encounter Summary ---
Author Organization [employer] Address [address] [place] [address] Care Team Providers Care Compressed Gas Tester Name Role Phone Cynthia Sweet MD Primary Care Provider [phone] Reason for Visit * Reason Comments Diabetes Mellitus 8 week Encounter Details Date Type Department Care Team (Late st Contact Info) Description 06/28/2025 8:00 AM EST Office Visit Endocrinology - [place] [address] [place] [address] Gemma Ferris PA [address] [place] [address] Type 2 diabetes mellitus with complication, with intermediate current use of insulin pump (CMS/HCC V24, CMS/HCC V28) (Primary Dx); Secondary hypertension; Hyperlipidemia, unspecified hyperlipidemia type Social History Tobacco Use Types Packs/Day Years Used Date Smoking Tobacco: Former Cigarettes 0 Q uit: 07/20/2018 Smokeless Tobacco: Never Tobacco [...] care for your loved ones. For example, childcare provider or elderly care for an older [...] AM EST documented as of this encounter Last Filed Vital Signs Vital Sign Reading Time Taken Comments Blood Pressure 123/77 06/28/2025 8:36 AM EST Pulse 80 06/28/2025 8:36 AM EST Temperature 36.2 C (97.1 F) 06/28/2025 8:36 AM EST Respiratory Rate - - Oxygen Saturation - - Inhaled Oxygen Concentration - - Weight 82.2 kg (181 lb 3.2 oz) 06/28/2025 8:36 A M EST Height 157.5 cm (5' 2 ) 06/28/2025 8:36 AM EST Body Mass Index 33.14 06/28/2025 8:36 AM EST documented in this encounter Ordered Prescriptions Prescription Sig Dispense Quantity Refills Last Filled Start Date End Date rosuvastatin (Crestor) 5 mg tablet Take 1 tablet (5 mg total) by mouth 1 (one) time each day. 30 each 11 06/28/2025 06/28/2026 documented in this encounter Progress Notes * Luis Alfredo Cannon MA - 06/28/2025 8:00 AM EST Visit Vitals BP 123/77 (BP Location: Left arm, Patient Position: Sitting, BP Cuff Size: Large adult) Pulse 80 Temp 36.2 ??C (97.1 ??F) (Temporal) Ht 1.575 m (62 ) Wt 82.2 kg (181 lb 3.2 oz) BMI 33.14 kg/m?? OB Status Hysterectomy Smoking Status Former BSA 1.83 m?? If blood pressure is greater than 140/90 was average BP completed? N/A Medication list reviewed and refills pended: Yes Blood sugar: FSBS: Lab Results Component Value Date GLUCOSE 142 06/28/2025 . Is sugar <70 or > 400? No. Is patient on CGM? Yes; CGM data downloaded yes..If yes, please update blue sticky note with DME orpharmacy information. Are labs up to date? yes Foot Exam Due: no Eye Exam Due: no * SELVIN Hanley - 06/28/2025 8:00 AM EST Images from the original note were not included. CHIEF COMPLAINT: Diabetes Mellitus (8 week) IDENTIFIER: Neisha Manley is a 60 y.o. old female. HPI: Patient presents to the office for follow-up on diabetes. Past medical history allergic rhinitis, carpal tunnel, depression, type 2 diabetes, fibromyalgia, hypertension, hyperlipidemia and insomnia. Patient using Dexcom and switch to t:slim pump. She is using control IQ. Type 2 diabetes: Hemoglobin A1c: Lab Results Component Value Date HGBA1C 6.7 (H) 05/26/2025 HGBA1C 6.5 (H) 10/12/2024 HGBA1C 6.0 01/14/2024 Her A1c is still at goal. She was on steroids chronically starting at 20 mg during neuropathy and joint problems. Currently she is off steroids I can see her CGM data and her pump I think there is an issue with connectivity with the system. Patient got a new phone. She might not have connected the phone properly to [employer]. Message sent [employer] to have her connect. She states since she has been off steroids that she has not seen any hypoglycemic readings States that she feels her sugars are controlled T:slim pump. This is the pump data from last visit Pump settings are the most current settings. The report I can see the settings just not the pump insulin delivering information and CGM data Getting supplies from [employer] She does mention she is without CGM for the last 4 days. Is being delivered. Medications: Humalog Gabapentin for neuropathy 300 MGs 3 times a day Diabetic complicated by neuropathy. On gabapentin. She is up-to-date with podiatry and ophthalmology\appointments. States she had eye laser surgery June 13 Hypertension: Lisinopril 10 mg. Blood pressure 123/77 Hyperlipidemia: Cholesterol worsened. States she is not taking atorvastatin due to GI side effects.Previously she was on pravastatin. She has listed in allergies as GI side effects. States that she did not have GI side effects with pravastatin that just did not work Wt Readings from Last 3 Encounters: 06/28/25 82.2 kg (181 lb 3.2 oz) 05/02/25 79.3 kg (174 lb 12.8 oz) 11/15/24 78 kg (172 lb) ROS: GENERAL: No malaise, significant weight loss or fever HEENT: No changes in hearing or vision, nose bleeds or other nasal problems RESPIRATORY: No cough, wheezing or shortness of breath CARDIOVASCULAR: No chest pain, leg swelling or palpitations GI: No abdominal discomfort, blood in stools or black stools ENDOCRINE: See HPI MUSCULOSKELETAL: No joint pain or swelling, back pain, or muscle pain. 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 ([facility] V24, [facility] V28) 05/02/2025 Mass of left wrist 06/21/2024 De Quervain's tenosynovitis 06/21/2024 IBS (irritable bowel syndrome) 05/03/2024 History of drug use 05/03/[address] 05/24/2021 Anxiety 03/16/2021 DM (diabetes mellitus), type 2 with neurological complications ([facility] V24, [facility] V28) 02/04/2021 Allergic rhinoconjunctivitis 06/18/2020 Kidney stone 10/28/2019 Episode of moderate major depression ([facility] V24, [facility] V28) 10/03/2019 Rheumatoid arthritis ([facility] V24, [facility] V28) 10/03/2019 Elevated TSH 08/18/2018 CTS (carpal tunnel syndrome) 02/24/2018 Depression 02/24/2018 Fibromyalgia 02/24/2018 Vitamin D deficiency 02/24/2018 Abnormal Pap smear of cervix 01/18/2018 Moderate asthma 01/08/2018 Convulsive disorder ([facility] V24, [facility] V28) 12/04/2017 Hypertension 11/28/2015 Insomnia 01/02/2015 Hemorrhoids 11/01/2013 Herpes zoster 10/25/2013 Hyperlipidemia 02/18/2011 SOCIAL HISTORY: Social History Tobacco Use Smoking status: Former Current packs/day: 0.00 Types: Cigarettes Quit date: 07/20/2018 Years since quittin.9 Smokeless tobacco: Never Substance Use Topics Alcohol use: No FAMILY HISTORY: Family Status Relation Name Status Mother Alive Father Alive Sister Alive Sister (Not Specified) Daughter (Not Specified) Son (Not Specified) Son (Not Specified) No partnership data on file Family History Problem Relation Name Age of Onset Stroke Mother Diabetes Mother hypertension, fibromyalgia, ovarian cancer Asthma Mother Other (Other: allergic rhinitis) Mother Other (Other: deceded) Mother Other (Other: heart attack) Father Stroke Sister Breast cancer Sister 26 Diabetes Sister Asthma Sister Breast cancer Sister Asthma Daughter Other (Other: allergic rhinitis) Daughter Asthma Son Eczema Son Asthma Son ACTIVE MEDICATIONS: Outpatient Medications Marked as Taking for the 06/28/25 encounter (Office Visit) with SELVIN Hanley Medication Sig Dispense Refill albuterol 2.5 mg /3 mL (0.083 %) nebulizer solution Take 1 Vial by nebulization every 4 hours as needed for Wheezing for up to 180 days. albuterol HFA (ProAir HFA) 90 mcg/actuation inhaler Inhale 2 Puffs into the lungs 4 times daily as needed for Cough or Wheezing. amitriptyline (ELAVIL) 100 mg tablet Take 1 tablet (100 mg total) by mouth. at bedtime for 30 days betamethasone, augmented, (DIPROLENE-AF) 0.05 % cream APPLY A THIN LAYER TWICE DAILY FOR 2 WEEKS. blood sugar diagnostic (FreeStyle Lite Strips) test strip Use to check BS 3 times a day blood-glucose sensor (Dexcom G6 Sensor) device 1 Device by Does not apply route See Admin Instructions. Change sensors every 10 days blood-glucose transmitter (Dexcom G6 Transmitter) device 1 Device by Does not apply route See AdminInstructions. Change transmitter every 3 months. budesonide-formoteroL (SYMBICORT) 160-4.5 mcg/actuation inhaler Inhale 2 Puffs into the lungs 2 times daily. dicyclomine (BENTYL) 10 mg capsule TAKE 1 CAPSULE BY MOUTH FOUR TIMES A DAY EPINEPHrine (EpiPen 2-Calvin) 0.3 mg/0.3 mL injection PLEASE SEE ATTACHED FOR DETAILED DIRECTIONS famotidine (PEPCID) 20 mg tablet TAKE 1 TABLET BY MOUTH TWICE A DAY 180 tablet 1 gabapentin (NEURONTIN) 100 mg capsule Take 1 capsule by mouth twice daily. TAKE IN ADDITION TO 300MG TWICE DAILY NEEDED 180 capsule 0 gabapentin (NEURONTIN) 300 mg capsule TAKE 1 CAPSULE BY MOUTH TWICE A DAY 180 capsule 1 glucagon (Baqsimi) 3 mg/actuation nasal spray 1 Dose by Nasal route as needed for Other (sever hypoglycemia). hydrOXYzine HCL (ATARAX) 25 mg tablet Take 1 tablet (25 mg total) by mouth 2 (two) times a day if needed. infusion set for insulin pump ([employer]os[employer] 90) infusion set 1 Device by Does not apply route every 3 days. insulin lispro (HumaLOG KwikPen) 100 unit/mL injection pen Inject 3 times a day with meals per sliding scale: 120-150: 2 units; 150-200: 4 units; 201-250: 6 units; 251-300: 8 units; 300-350: 10 units; 351-400: 12 units - Subcutaneous, when not using insulin pump. Max daily dose 40 units 15 mL 11 insulin lispro 100 unit/mL injection -Administer within 15 minutes of a mealInject 120 Units as directed See Admin Instructions. UP TO 120 UNITS DAILY VIA INSULIN PUMP 30 mL 11 lactose-reduced food (NUTRITIONAL SUPPLEMENT ORAL) Nutritional Supplements (Glucose Management) Tab Take 4 Tablets by mouth as needed for Other (low blood sugar) lancets 33 gauge misc 1 Each by Does not apply route 3 times daily. To check BS lurasidone (LATUDA) 40 mg tablet Take 40 mg by mouth daily. meloxicam (MOBIC) 15 mg tablet TAKE 1 TABLET (15 MG TOTAL) BY MOUTH ONCE DAILY FOR 14 DAYS 30 tablet 0 omeprazole (PriLOSEC) [address] capsule TAKE 1 CAPSULE BY MOUTH 2 TIMES DAILY (BEFORE MEALS). 180 capsule 1 pen needle, diabetic 32 gauge x 5/32 needle Use 4 times a day with insulin 100 each 5 ramelteon (ROZEREM) 8 mg tablet Take 8 mg by mouth at bedtime. rizatriptan (MAXALT) 10 mg tablet TAKE 1 TAB AT ONSET OF MIGRAINE EVERY 4 HOURS UP TO 2 PER 24 HOURS DIRECTED sucralfate (CARAFATE) 100 mg/mL suspension Take 10 mL (1 g total) by mouth. SUMAtriptan (IMITREX) 100 mg tablet Take 1 Tablet by mouth daily as needed. May repeat dose once after 2 hours, if needed. topiramate (TOPAMAX) 100 mg tablet Take 100 mg by mouth 2 times daily. [DISCONTINUED] atorvastatin (LIPITOR) 10 mg tablet Take 1 tablet (10 mg total) by mouth at bedtime.90 each 1 ALLERGIES: Bee venom protein (honey bee), Other, Duloxetine hcl, Insulin glargine, Methotrexate, Pravastatin, Sarilumab, Latex, and Semaglutide PHYSICAL EXAM: Blood pressure 123/77, pulse 80, temperature 36.2 ??C (97.1 ??F), temperature source Temporal, height 1.575 m (62 ), weight 82.2 kg (181 lb 3.2 oz). Body mass index is 33.14 kg/m??. BMI is greater than 25.0 (above the normal range) - see Plan APPEARANCE: Alert and in no acute distress NEURO: Awake, alert and oriented x 3 LABS: Lab Results Component Value Date HGBA1C 6.7 (H) 05/26/2025 CHOL 268 (H) 05/26/2025 LDL 151 (A) 01/14/2024 HDL 58 05/26/2025 TRIG 238 (H) 05/26/2025 Lab Results Component Value Date GLUCOSE 142 06/28/2025 No results found for: TSH IMAGING: IMPRESSION: 1. 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 Secondary hypertension 3. Hyperlipidemia, unspecified hyperlipidemia type PLAN: Patient presents to the office for diabetes follow-up 1. Diabetes: A1c at goal No changes made to insulin pump Not able to obtain data on patterns of glucose. mokono provided Message sent to [employer] printing sales representative to see if we can get patient connected back with [employer] If needed will adjust medications For now continue with bolusing and current settings Up-to-date with eye exam and foot exam 2. Hypertension: Blood pressure at goal 3. Hyperlipidemia: Will start Crestor. Stop atorvastatin. She develops side effects she will reach out to us Follow-up in 3 months Myself and my colleagues maintained a long-term, longitudinal relationship with this patient, overseeing care of chronic conditions including diabetes, hyperlipidemia and hypertension. This care relationship has significantly influence my decision making and treatment plans during today's encounter. All questions and concerns were addressed. Patient understands and agrees with this treatment plan.Patient was reminded to call or return to the office if any new or existing problems arise This document was made using voice recognition software. It may contain some errors in grammar or syntax Medication and lab orders: Type 2 diabetes mellitus with complication, with intermediate current use of insulin pump ([facility] V[facility], [facility] V[facility]) (Primary) - POC glucose manually resulted - Hemoglobin A1c; Future Secondary hypertension Hyperlipidemia, unspecified hyperlipidemia type Other orders - rosuvastatin (Crestor) 5 mg tablet; Take 1 tablet (5 mg total) by mouth 1 (one) time each day. 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, 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 ([facility] V24, [facility] V28) Expected: 08/29/2025, Expires: 06/28/2026 documented as of this encounter Procedures Procedure Name Priority Date/Time Associated Diagnosis Comments POC GLUCOSE Routine 06/28/2025 8:46 AM EST Type 2 diabetes mellitus with complication, with intermediate current use of insulin pump ([facility] V24, [facility] V28) documented in this encounter Results * POC glucose manually resulted (06/28/2025 8:46 AM EST) Glucose POC 142 mg/dL Blood Capillary blood specimen / Unknown 06/28/2025 8:46 AM EST us Gemma MONTALVO POINT OF CARE TEST ENTER/ED IT ORDERABLES Final Result documented in this encounter Visit Diagnoses Diagnosis 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 Formulary change 04/18/2025 06/28/2025 predniSONE (DELTASONE) 10 mg tablet Take 1 tablet (10 mg total) by mouth. Formulary change 04/20/2025 06/28/2025 polyethylene glycol (Golytely) 236-22.74-6.74 -5.86 gram solution Take 4L by mouth once for one dose. May substitue any PEG. Starting at 6PM the night before your procedure drink 1 8oz glasses at your own pace until you complete half of the gallon. Finish 2nd half of the gallon 5 hours before your procedure. Formulary change 06/01/2024 06/28/2025 ondansetron (ZOFRAN) 4 mg tablet Take 1 tablet (4 mg total) by mouth every 8 (eight) hours if needed. Formulary change 03/15/2024 06/28/2025 naltrexone (DEPADE) 50 mg tablet Take 50 mg by mouth daily. Formulary change 06/28/2025 atorvastatin (LIPITOR) 10 mg tablet Take 1 tablet (10 mg total) by mouth at bedtime. Formulary change 11/15/2024 06/28/2025 documented as of this encounter Additional Health Concerns Assessment Noted Time PHQ-9 Depression Total Score: 9 09/07/19 25 7:35 AM EST documented as of this encounter Care Teams Compressed Gas Tester Relationship Specialty Start Date End Date Cynthia Sweet MD [address] [place] [phone] PCP - General Internal Medicine 06/22/24 documented as of this encounter
--- NOTE | 2025-06-30 15:52 | A.OFFVIS_ITS ---
Vital Signs 06/30/25 15:58 Height 5 ft 2 in Weight 180 lb 12.465 oz BMI 33.1 BP 130/80 Blood Pressure Location Lt brachial Position Sitting Pulse 85 Pulse Source Pulse Oximeter Pulse Oximetry (%) 93 Oxygen Delivery Method Room Air Intake Visit Reasons: follow up/ MD simental urgent Intake Note: Patient presents today for RA follow up. Atg Architect Required: No Information Interpreted: non-clinical & clinical Accompanied by: Self / Same As Patient Allergies cefazolin (From ANCEF) Allergy (Severe, Verified 06/30/25 15:58) anaphlaxis duloxetine (Cymbalta) Allergy (Intermediate, Verified 06/30/25 15:58) Rash methotrexate Allergy (Intermediate, Verified 06/30/25 15:58) Swelling insulin glargine (From Lantus U-100 Insulin) Adverse Reaction (Severe, Verified 06/30/25 15:58) Anaphylaxis Latex Allergy (Intermediate, Uncoded 12/21/24 15:40) rash Medication List - Last Reconciled 06/30/25 by Leyda Mabry MD albuterol sulfate 2.5 mg inhalation Q6H budesonide 180 mcg/actuation (Pulmicort Flexhaler) 1 inh inhalation BID ciclopirox 8% 1 appl topical BEDTIME 4 weeks dicyclomine 10 mg PO TID epinephrine (EpiPen) 0.3 mg IM Q10M PRN famotidine 20 mg PO BID gabapentin 100 mg PO TID hydroxyzine HCl 25 mg PO BID PRN infusion set-insulin pump body As directed insulin lispro (Humalog U-100 Insulin) 5 units subcut TID lansoprazole 30 mg PO DAILY lisinopril 10 mg PO DAILY lurasidone (Latuda) 40 mg PO DAILY pravastatin 40 mg PO DAILY prazosin 1 mg PO BEDTIME prednisone 10 mg PO DAILY ramelteon 8 mg PO BEDTIME rizatriptan take 1 tab at onset of headache; if no relief may repeat 1 tab after at least 4 hrs; max = 2 tabs/24 hr PO 30 days topiramate 200 mg PO BID triamcinolone acetonide 0.1% 1 appl topical DAILY HPI Comments Details: Patient is a 60-year-old female with type 2 diabetes, hypertension, hyperlipidemia complicated by CAD, migraine headaches, polyarticular osteoarthritis, fibromyalgia and seropositive rheumatoid arthritis here today for follow up Interval History: Patient last seen 04/20/25 with me - Simponi 50mg SC every 4 weeks - Did not start this medication because insurance did not approve it, it is currently still in appeal - Currently in a polyarticular joint flare Today - Not on DMARDs - presenting for management of rheumatoid arthritis. - She is not currently on any medication for her condition. - The patient recently started Simponi, which was chosen due to a prior good response to Humira. - She reports that after her first infusion two months ago, she experienced pressure and pain in her eyes, which worsened after the second infusion. - Subsequently, she was diagnosed with a macular hole that required laser surgery. - She states that she had no eye problems six months prior to the incident and believes the Simponi treatment caused the issue, making her unwilling to continue it. - Post-surgery, she continues to experience eye pain and flutters on the left side of her eye. - The patient has a history of diabetes. - She also has a history of trying Kevzara in the past, which she did not tolerate. Rheumatologic History: +RF, -ve CCP dx 03/2017 failed methotrexate, Plaquenil, Orencia. 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 - Musculoskeletal: Reports swelling in her hands and feet. - Genitourinary: Reports kidney pain. All other systems reviewed and are unremarkable except noted above Physical Exam Exam Exam: Vital signs reviewed Physical Examination CONSTITUITIONAL Patient alert and cooperative. Well appearing and in no apparent painful distress MSK Hands * Right Hand: Able to make a fist. No swelling. Tenderness to palpation of the MCPs, PIPs * Left Hand: Able to make a fist. No swelling. Tenderness to palpation of the MCPs, PIPs Wrists * Right Wrist: Full ROM to flexion and extension. No swelling. TTP * Left Wrist: Full ROM to flexion and extension. No swelling. TTP Elbows * Right Elbow: Full ROM. No swelling or TTP. No TTP of the medial epicondyle. No TTP of the lateral epicondyle * Left Elbow: Full ROM. No swelling or TTP. No TTP of the medial epicondyle. No TTP of the lateral epicondyle Shoulders * Right shoulder: Full ROM. No swelling noted. No TTP of the AC joint. No TTP of the subacromial bursa. No TTP of the posterior shoulder * Left shoulder: Full ROM. No swelling noted. No TTP of the AC joint. No TTP of the subacromial bursa. No TTP of the posterior shoulder Knees * Right knee: Full ROM. No swelling noted. TTP of the knee joint line. No TTP of pes anserine bursa * Left knee: Full ROM. No swelling noted. TTP of the knee joint line. No TTP of pes anserine bursa. Ankles * Right ankle: Good ankle dorsiflexion and plantar flexion. No swelling. No TTP of the ankle joint * Left ankle: Good ankle dorsiflexion and plantar flexion. No swelling. No TTP of the ankle joint Feet * Right foot: Positive squeeze test * Left foot: Positive squeeze test Tender points? * No tenderness to palpation of the bilateral trapezius, supraspinatus, anterior costochondral junctions, bilateral suboccipital muscle insertions SKIN No rashes Vital Signs: Last Vital Signs Pulse 85 06/30/25 15:58 BP 130/80 06/30/25 15:58 Pulse Ox 93 06/30/25 15:58 Oxygen Delivery Method Room Air 06/30/25 15:58 BMI result Body Mass Index 33.1 Results Reviewed Results Reviewed: Laboratory Tests 11/14/24 04/18/25 14:44 15:43 WBC 5.7 RBC 4.49 Hgb 13.2 Hct 39.0 Plt Count 481 H ESR 16 23 H Sodium 142 Potassium 3.9 Chloride 105 Carbon Dioxide 30 H BUN 10 Creatinine 0.69 Total Bilirubin 0.4 AST 40 H ALT 28 C-Reactive Protein 1.11 H 1.48 H Laboratory Tests 11/14/24 14:44 Hepatitis A IgM Ab Nonreactive Hep Bs Antigen Negative Hep Bs Antibody NONREACTIVE Hep B Core Total Ab Nonreactive Hepatitis C Ab (EIA) Nonreactive TB Test (T-Spot) Com Negative Assessment & Plan Assessment & Plan (1) Seropositive rheumatoid arthritis: Comment: +RF, -ve CCP dx 03/2017 failed methotrexate, Plaquenil, Orencia. elevated LFT on Kevzara Humira started 09/3021 effective Simponi 04/2025 - 05/2025. Eye pain with infusions and found to have a retinal tear. Not directly related to Simponi but patient does not want to continue Code(s): M05.9 - Rheumatoid arthritis with rheumatoid factor, unspecified Category: Medical Plan: #Seropositive RA Patient is a 59-year-old female with seropositive rheumatoid arthritis here today for follow up. The patient is currently experiencing a flare of her rheumatoid arthritis, with swollen hands and feet, as she is not on any active treatment. We will discontinue Simponi due to a suspected severe adverse reaction involving her eyes and her unwillingness to continue the medication. The patient will cancel her upcoming infusion scheduled for August 01. To manage current symptoms, the patient will be started on a course of prednisone 10 mg daily. A decision on a new long-term treatment will be deferred until after she sees her zinc miner. Future options discussed include switching to a different TNF inhibitor infusion, Remicade, or trying a different class of medication, specifically a RADHA inhibitor pill such as Olumiant, Xeljanz, or Rinvoq. The plan is to maintain her follow-up appointment on August 22 to make a final decision. Plan - Stop Simponi - Prednisone 10mg daily - RTC August 2025 - Labs before visit: CBC, CMP, ESR, CRP Plan I informed the patient that I had spoken with both of her ophthalmologists, who indicated that the changes in her eyes are not related to Simponi. However, acknowledging her strong conviction due to the temporal association of her symptoms and her discomfort, we have agreed to discontinue Simponi and will not restart it. To manage her current inflammatory symptoms, I have prescribed a short-term course of low-dose prednisone (10 mg). We will defer making a decision on the next long-term agent until her eye condition has been re-evaluated by her surgeon later this month. I discussed two main pathways for her next treatment: switching to a different infused TNF inhibitor, Remicade, which is an older but effective medication, or switching classes to an oral RADHA inhibitor, such as Rinvoq, Xeljanz, or Olumiant. We will finalize this plan at her next scheduled visit on August 22. I spent 30 minutes reviewing the record and labs, taking a history, examining the patient, discussing the treatment plan, ordering diagnostic work up and documenting in the medical record Medications: Changed From prednisone Take 2 tablets for 14 days then 1.5 tablets for 3 days then complete taper previously given 10 mg PO DIRECTED 35 tabs 0RF M05.9 - Rheumatoid arthritis with rheumatoid factor, unspecified To prednisone 10 mg PO DAILY 90 tabs 1RF M05.9 - Rheumatoid arthritis with rheumatoid factor, unspecified Discontinued golimumab (Simponi) Discontinued Reason: Doctor's Order 50 mg (0.5 mL) subcut Q4W 0.5 mL 5RF M05.9 - Rheumatoid arthritis with rheumatoid factor, unspecified prednisone Discontinued Reason: Doctor's Order Take 3 tablets for 14 days then 2 tablets for 14 days then 1 tablet for 14 days then stop 84 tabs 0RF M05.9 - Rheumatoid arthritis with rheumatoid factor, unspecified Coding Level of Care Code Est Pt Level 4 (87471) Add On Problem Visit Only Diagnoses Seropositive rheumatoid arthritis M05.9
[2025-06-30 15:58] VITALS: BP 130/80; PULSE 85; O2SAT 93; BMI 33.1
--- OUTSIDE RECORDS SUMMARY | 2025-06-30 20:14 | XMS_ITS | Encounter Summary ---
Author Organization [facility] Address [address] [place] [address] Care Team Providers Care Carbon Sequestration Plant Manager Name Role Phone Cynthia Sweet MD Primary Care Provider [phone] Reason for Visit * Reason Onset Date Comments Medication Problem 06/23/2025 Encounter Details Date Type Department Care Team (Late st Contact Info) Description 06/23/2025 Telephone Endocrinology - [place] [address] [place] [phone] Gemma Ferris PA [address] [place] [address] Social History Tobacco Use Types Packs/Day Years Used Date Smoking Tobacco: Former Cigarettes 0 Q uit: 07/20/2018 Smokeless Tobacco: Never Alcohol [...] care for your loved ones. For example, director child development center or elderly care for an older adult? [...] as of this encounter Progress Notes * Luis Alfredo Cannon MA - 06/27/2025 4:45 PM EST Spoke with patient and advised here of message below. Patient agrees to call [employer] andwill discuss updates at her office visit tomorrow morning. * Irene Ozuna RN - 06/26/2025 3:49 PM EST Called patient at [phone] No answer, mailbox not set up, unable to leave VM * SELVIN Hanley - 06/26/2025 12:59 PM EST Patient needs to contact them regarding that, per chart she uses [employer]. Other option is to change dme, we could switch to [employer] dm * Arlene Todd - 06/23/2025 1:38 PM EST Endocrine Call Primary endocrine provider: Gemma Ferris PA-C Is the endocrine provider in the office toady?: no Who is calling? The patient. If not the patient or parent/guardian please check for authorization to share/verbal release. Why is the person calling? Other question/concern: Medication Problem: Pt says supplier has been sending her Dexcom G7 sensors late for the past few months. She is currently on her last sensor and only has about 17 hours left before it needs to be changed. Please advise? [phone] . Please forward to endocrine pool (p [phone]). documented in this encounter Plan of Treatment Upcoming Encounters Date Type Department Care Team (Late st Contact Info) Description 09/20/2025 4:00 PM EST Office Visit Adult Medicine [facility] [address] [place] [address] Cynthia Sweet MD [address] [place] [address] 09/26/2025 8:00 AM EDT Office Visit Endocrinology - [address] [phone] Lisha Sweet PA [address] [place] [address] documented as of this encounter Visit Diagnoses Not on filedocumented in this encounter Additional Health Concerns Assessment Noted Time PHQ-9 Depression Total Score: 9 09/07/19 25 7:35 AM EST documented as of this encounter Care Teams Carbon Sequestration Plant Manager Relationship Specialty Start Date End Date Cynthia Sweet MD [address] [place] [address] PCP - General Internal Medicine 06/22/24 documented as of this encounter
--- OUTSIDE RECORDS SUMMARY | 2025-06-30 20:14 | XMS_ITS | Clinical Summary ---
Author Organization [facility] Address [address] [place] [address] Phone Care Team Providers Care [facility] Name Role Phone Cynthia Sweet MD Primary Care Provider [phone] Allergies Active Allergy Reactions Criticality Noted Date [...] Admin Instructions. Change sensors every 10 days Active dicyclomine (BENTYL) 10 mg capsule TAKE 1 CAPSULE BY MOUTH FOUR TIMES A DAY 024 Active arm brace (WRIST BRACE MISC) 1 Units by Does not apply route daily. 024 Active betamethasone, augmented, (DIPROLENE-AF) 0.05 % cream APPLY A THIN LAYER TWICE DAILY FOR 2 WEEKS. 024 Active blood-glucose transmitter (Dexcom G6 Transmitter) device 1 Device by Does not apply route See Admin Instructions. Change transmitter every 3 months. Active lancets 33 gauge misc 1 Each by Does not apply route 3 times daily. To check BS Active blood sugar diagnostic (FreeStyle Lite Strips) test strip Use to check BS 3 times a day Active SUMAtriptan (IMITREX) 100 mg tablet Take 1 Tablet by mouth daily as needed. May repeat dose once after 2 hours, if needed. Active budesonide-form oteroL (SYMBICORT) 160-4.5 mcg/actuation inhaler Inhale 2 Puffs into the lungs 2 times daily. Active infusion set for insulin pump (Autosoft 90) infusion set 1 Device by Does not apply route every 3 days. Active EPINEPHrine (EpiPen 2-Calvin) 0.3 mg/0.3 mL injection PLEASE SEE ATTACHED FOR DETAILED DIRECTIONS Active glucagon (Baqsimi) 3 mg/actuation nasal spray 1 Dose by Nasal route as needed for Other (sever hypoglycemia). Active lactose-reduced food (NUTRITIONAL SUPPLEMENT ORAL) Nutritional Supplements (Glucose Management) Tab Take 4 Tablets by mouth as needed for Other (low blood sugar) Active lurasidone (LATUDA) 40 mg tablet Take 40 mg by mouth daily. Active ramelteon (ROZEREM) 8 mg tablet Take 8 mg by mouth at bedtime. Active topiramate (TOPAMAX) 100 mg tablet Take 100 mg by mouth 2 times daily. Active albuterol HFA (ProAir HFA) 90 mcg/actuation inhaler Inhale 2 Puffs into the lungs 4 times daily as needed for Cough or Wheezing. Active albuterol 2.5 mg /3 mL (0.083 %) nebulizer solution Take 1 Vial by nebulization every 4 hours as needed for Wheezing for up to 180 days. Active amitriptyline (ELAVIL) 100 mg tablet Take 1 tablet (100 mg total) by mouth. at bedtime for 30 days Active hydrOXYzine HCL (ATARAX) 25 mg tablet Take 1 tablet (25 mg total) by mouth 2 (two) times a day if needed. Active rizatriptan (MAXALT) 10 mg tablet TAKE 1 TAB AT ONSET OF MIGRAINE EVERY 4 HOURS UP TO 2 PER 24 HOURS DIRECTED Active sucralfate (CARAFATE) 100 mg/mL suspension Take 10 mL (1 g total) by mouth. Active gabapentin (NEURONTIN) 100 mg capsuleIndicati ons:Type 2 diabetes mellitus with other diabetic neurological complication ([facility] V24, [facility] V28) Take 1 capsule by mouth twice daily. TAKE IN ADDITION TO 300MG TWICE DAILY NEEDED 180 capsule Active gabapentin (NEURONTIN) 300 mg capsuleIndicati ons:Type 2 diabetes mellitus with other diabetic neurological complication ([facility] V24, [facility] V28) TAKE 1 CAPSULE BY MOUTH TWICE A DAY 180 capsule 1 Active insulin lispro (HumaLOG KwikPen) 100 unit/mL injection pen Inject 3 times a day with meals per sliding scale: 120-150: 2 units; 150-200: 4 units; 201-250: 6 units; 251-300: 8 units; 300-350: 10 units; 351-400: 12 units - Subcutaneous, when not using insulin pump. Max daily dose 40 units 15 mL Active pen needle, diabetic 32 gauge x 32 needle Use 4 times a day with insulin 100 each 5 Active omeprazole (PriLOSEC) [address] capsule TAKE 1 CAPSULE BY MOUTH 2 TIMES DAILY (BEFORE MEALS). 180 capsule 1 Active famotidine (PEPCID) 20 mg tablet TAKE 1 TABLET BY MOUTH TWICE A DAY 180 tablet 1 Active insulin lispro 100 unit/mL injection -Administer within 15 minutes of a mealInject 120 Units as directed See Admin Instructions. UP TO 120 UNITS DAILY VIA INSULIN PUMP 30 mL Active meloxicam (MOBIC) 15 mg tablet TAKE 1 TABLET (15 MG TOTAL) BY MOUTH ONCE DAILY FOR 14 DAYS 30 tablet Active rosuvastatin (Crestor) 5 mg tablet Take 1 tablet (5 mg total) by mouth 1 (one) time each day. 30 each 2025 Active ondansetron (ZOFRAN) 4 mg tablet Take 1 tablet (4 mg total) by mouth every 8 (eight) hours if needed. 024 2024 Discontinued(F ormulary change) naltrexone (DEPADE) 50 mg tablet Take 50 mg by mouth daily. 2024 Discontinued(F ormulary change) polyethylene glycol (Golytely) 236-22.74-6.74 -5.86 gram solution Take 4L by mouth once for one dose. May substitue any PEG. Starting at 6PM the night before your procedure drink 1 8oz glasses at your own pace until you complete half of the gallon. Finish 2nd half of the gallon 5 hours before your procedure. 4000 mL 2024 Discontinued(F ormulary change) meloxicam (MOBIC) 15 mg tablet TAKE 1 TABLET (15 MG TOTAL) BY MOUTH ONCE DAILY FOR 14 DAYS 30 tablet 2024 Discontinued atorvastatin (LIPITOR) 10 mg tablet Take 1 tablet (10 mg total) by mouth at bedtime. 90 each 1 025 2024 Discontinued(F ormulary change) predniSONE (DELTASONE) 10 mg tablet Take 1 tablet (10 mg total) by mouth. 2024 Discontinued(F ormulary change) predniSONE (DELTASONE) 5 mg tablet Take 1 tablet (5 mg total) by mouth. 2024 Discontinued(F ormulary change) Active Problems Problem Noted Date Diagnosed Date Type 2 diabetes mellitus wit h complication, with care home current use of insulin pump 05/02/2025 Mass of left wrist 06/21/2024 De Quervain's tenosynovitis 06/21/2024 IBS (irritable bowel syndrome) 05/03/2024 History of drug use 05/03/2024 Overview (05/03/2024): H/o opioid withdrawal Insulin pump in place 05/24/2021 Anxiety 03/16/2021 DM (diabetes mellitus), type 2 with neurological complications 02/04/2021 Allergic rhinoconjunctivitis 06/18/2020 Kidney stone 10/28/2019 Episode of moderate major depression 10/03/2019 Rheumatoid arthritis 10/03/2019 Overview (05/03/2024): Follows with Dr. Jo at [facility]. Medication free remission since 2020 Elevated TSH 08/18/2018 CTS (carpal tunnel syndrome) 02/24/2018 Depression 02/24/2018 Fibromyalgia 02/24/2018 Vitamin D deficiency 02/24/2018 Abnormal Pap smear of cervix 01/18/2018 Overview (05/03/2024): 12/2017 PAP Cytology neg, + HPV, ( neg) Per [facility]- repeat co-testing one year 01/11/2019 PAP Moderate asthma 01/08/2018 Convulsive disorder 12/04/2017 Hypertension 11/28/2015 Insomnia 01/02/2015 Hemorrhoids 11/01/2013 Herpes zoster 10/25/2013 Hyperlipidemia 02/18/2011 Encounters Date Type Department Care Team Description 06/28/2025 8:00 AM EST Office Visit Endocrinology - [address] [phone] Gemma Ferris PA Type 2 diabetes mellitus with complication, with termite treater helper current use of insulin pump (CMS/HCC V24, CMS/HCC V28) (Primary Dx); Secondary hypertension; Hyperlipidemia, unspecified hyperlipidemia type 06/23/[address] [phone] Gemma Ferris PA 05/26/2025 9:05 AM EST Lab Draw Station - [address] [place] [phone] Type 2 diabetes mellitus with complication, with termite treater helper current use of insulin pump (CMS/HCC V24, CMS/HCC V28) 05/26/2025 Results Follow-Up [address] [phone] Gemma Ferris PA 05/03/2025 Telephone Adult Medicine [place] - [address] [place] [phone] Cynthia Sweet MD 05/03/2025 Telephone Endocrinology [address] [phone] Gemma Ferris PA 05/02/2025 9:30 AM EDT Office Visit [address] [phone] Gemma Ferris PA Type 2 diabetes mellitus with complication, with care home current use of insulin pump ([facility] V24, [facility] V28) (Primary Dx); Secondary hypertension; Hyperlipidemia, unspecified hyperlipidemia type from Last 3 Months Immunizations Immunization Administration Dates Next Due Moderna SARS-CoV-2 COVID-19, mRNA, LNP-S, preservative free 09/14/2020,08/14/2020 Pneumococcal conjugate 13 va lent (Prevnar 13, PCV13) 2mo and older 12/04/2017 Surgical History Surgery Date Site/Laterality Comments CARPAL TUNNEL RELEASE PROCEDURE: [facility] NEUROPLASTY &/TRANSPOS MEDIAN NRV CARPAL TUNNE SECTION PROCEDURE: [facility] DELIVERY ONLY PARTIAL HYSTERECTOMY 2007 PROCEDURE: NH SUPRACERVICAL ABDL HYSTER W/WO RMVL TUBE OVARY SALPINGOOPHORECTOMY Left PROCEDURE: NH LAPAROSCOPY W/RMVL ADNEXAL STRUCTURES OTHER SURGICAL HISTORY [...] COMMENT: 12/2017 PAP Cytology neg, + HPV, (16/18 neg) Per [facility]- repeat co-testing one year Convulsive disorder ([facility] V24, [facility] V28) 12/04/2017 DX:Convulsive disorder (HCC) Moderate asthma 01/08/2018 DX:Moderate asth ma Insomnia 01/02/2015 DX:Insomnia Hyperlipidemia 02/18/2011 DX:Hyperlipidemi a Hypertension 11/28/2015 DX:Hypertension Rheumatoid arthritis ([facility]/ [facility] V24, [facility] V28) 10/03/2019 DX:Rheumatoid arthritis (HCC ) Kidney stone 10/28/2019 DX:Kidney stone Anxiety 03/16/2021 DX:Anxiety DM (diabetes mellitus), type 2 with renal complications ([facility] V24, [facility] V28) 02/04/2021 DX:DM (diabetes mellitus), t ype 2 with renal complications (HCC) DM (diabetes mellitus), type 2 with neurological complications ([facility] V24, [facility] V28) 02/04/2021 DX:DM (diabetes mellitus), t ype [...] for your loved ones. For example, children's nursery assistant or elderly care for an older adult? [...] Orientation Straight 07/06/2024 9: 16 AM EST Last Filed Vital Signs Vital Sign Reading Time Taken Comments Blood Pressure 123/77 06/28/2025 8:36 AM EST Pulse 80 06/28/2025 8:36 AM EST Temperature 36.2 C (97.1 F) 06/28/2025 8:36 AM EST Respiratory Rate 14 11/15/2024 3:22 PM EDT Oxygen Saturation 94% 07/22/2024 9:24 AM EST Inhaled Oxygen Concentration - - Weight 82.2 kg (181 lb 3.2 oz) 06/28/2025 8:36 A M EST Height 157.5 cm (5' 2 ) 06/28/2025 8:36 AM EST Body Mass Index 33.14 06/28/2025 8:36 AM EST Plan of Treatment Upcoming Encounters Date Type Department Care Team (Late st Contact Info) Description 09/20/2025 4:00 PM EST Office Visit Adult Medicine [address] [phone] Cynthia Sweet MD [address] [place] [address] 09/26/2025 8:00 AM EDT Office Visit [address] [phone] Lisha Sweet PA [address] [place] [address] Health Maintenance Due Date Last Done Comments [...] Cancer Screening: Pap Smear 01/11/2022 01/11/2019, 01/11/2019, 01/08/2018 COVID-19 Vaccine ( season) 2025 09/14/2020, 08/14/2020 Influenza Vaccine (#1) 2025 Social Influencers of Health Screening 09/07/2025 09/07/2024 Diabetes: Blood Sugar Control Test (HGBA1C) 11/23/2025 05/26/2025, 10/12/2024, 01/14/2024, Additional history exists Diabetes: Annual Urine Albumin-Creatinine Ratio (uACR) 05/26/2026 05/26/2025, 10/12/2024, 01/14/2024 Diabetes: Annual GFR (Glomerular Filtration Rate) 05/26/2026 05/26/2025, 10/12/2024, 01/14/2024, Additional history exists Hypertension/CHF/CAD Annual BMP Blood Test 05/26/2026 05/26/2025, 10/12/2024, 01/14/2024, Additional history exists Diabetes: Annual Foot Exam 05/31/2026 05/31/2025, Diabetes: Annual Retina Eye Exam 06/13/2026 06/13/2025, 06/07/2024, 06/02/2023 Colorectal Cancer Screening: Colonoscopy 06/15/2029 06/15/2024, 01/31/2019 Cholesterol Screening (Lipid Panel) 05/26/2030 05/26/2025, 10/12/2024, 01/14/2024, Additional history exists HIV Screening Completed 01/11/2019 Hepatitis C Screening Completed 01/11/2019 Depression Screening Completed 09/07/2024, 03/23/20 24 HIB Vaccines Aged Out No longer eligi [...] Type 2 diabetes mellitus with complication, with care home current use of insulin pump ([facility] V24, [facility] V28) MICROALBUMIN CREATININE URINE RATIO Routine 05/26/2025 9:02 AM EST Type 2 diabetes mellitus with complication, with termite treater helper current use of insulin pump ([facility] V24, [facility] V28) LIPID PANEL WITH REFLEX TO DIRECT LDL Routine 05/26/2025 9:02 AM EST Type 2 diabetes mellitus with complication, with termite treater helper current use of insulin pump ([facility] V24, [facility] V28) HEMOGLOBIN A1C Routine 05/26/2025 9:02 AM EST Type 2 diabetes mellitus with complication, with termite treater helper current use of insulin pump ([facility] V24, [facility] V28) BASIC METABOLIC PANEL Routine 05/26/2025 9:02 AM EST Type 2 diabetes mellitus with complication, with termite treater helper current use of insulin pump ([facility] V24, [facility] V28) EXTERNAL CLINICAL LAB 05/26/2025 COLONOSCOPY Routine 06/15/2024 8:38 AM EST Family history of malignant neoplasm of digestive organs EXTERNAL DIABETIC RETINA EYE EXAM 06/07/2024 DEPRESSION SCREENING Routine 03/23/2024 DIABETES FOOT EXAM Routine 06/09/2023 HEPATITIS C SCREENING Routine 01/11/2019 HIV SCREENING Routine 01/11/2019 PAP SMEAR Routine 01/11/2019 KAYLEY SCREENING DIGITAL Routine 12/30/2017 2:34 PM EDT Encounter for screening mammogram for malignant neoplasm of breast from Last 3 Months or Most Recently Relevant to Health Maintenance Results * POC glucose manually resulted (06/28/2025 8:46 AM EST) Glucose POC 142 mg/dL Blood Capillary blood specimen / Unknown 06/28/2025 8:46 AM EST Gemma MONTALVO POINT OF CARE TEST ENTER/ED IT ORDERABLES Final Result * (ABNORMAL) Lipid panel with reflex to direct LDL (05/26/2025 9:02 AM EST) Cholesterol 268(H) 0 - 200 mg/dL LAB CHEMISTRY METHOD 05/26/2025 11:21 AM [facility] Triglycerides 238(H) 0 - 150 mg/dL LAB CHEMISTRY METHOD 05/26/2025 11:21 AM [facility] HDL 58 >=40 mg/dL LAB CHEMISTRY METHOD 05/26/2025 11:21 AM [facility] LDL Calculated 162(H) 0 - 100 mg/dL LAB CHEMISTRY METHOD 05/26/2025 11:21 AM [facility] Comment:Estimated LDL Calcul ated using equation: Total cholesterol - HDL cholesterol - (Triglycerides/5) VLDL Cholesterol Nino 47.6 mg/dL LAB CHEMISTRY METHOD 05/26/2025 11:21 AM [facility] Non HDL Chol. (LDL+VLDL) 210(H) <145 mg/dL LAB CHEMISTRY METHOD 05/26/2025 11:21 AM [facility] Chol/HDL Ratio 4.6(H) 0.0 - 4.4 LAB CHEMISTRY METHOD 05/26/2025 11:21 AM [facility] Blood Venous blood specimen / Unknown Venipuncture / Unknown 05/26/2025 9:02 AM EST 05/26/2025 9:02 AM EST Gemma MONTALVO LAB BLOOD ORDERABLES Final Result [facility] [address] [place] [address], [place] [phone] * Microalbumin creatinine urine ratio (05/26/2025 9:02 AM EST) Creatinine, Urine 226.0 mg/dL LAB CHEMISTRY METHOD 05/26/2025 11:32 AM EST [facility] Microalb, Ur 19.5 0.0 - 29.0 mg/L LAB CHEMISTRY METHOD 05/26/2025 11:32 AM EST [facility] Microalb/Creat Ratio 9 <30 mg/g creat LAB CHEMISTRY METHOD 05/26/2025 11:32 AM EST [facility] Urine Urine specimen from urethra / Unknown Non-blood Collection / Unknown 05/26/2025 9:02 AM EST 05/26/2025 9:02 AM EST us Gemma MONTALVO LAB URINE ORDERABLES Final Result Performing Organization Address [facility] de Phone Number [facility] [address] [place] [address], [place] [phone] * (ABNORMAL) Hemoglobin A1c (05/26/2025 9:02 AM EST) Hemoglobin A1C 6.7(H) <6.5 % LAB CHEMISTRY METHOD 05/26/2025 11:06 AM EST [facility] Mean Bld Glu Estim. 146 mg/dL LAB CHEMISTRY METHOD 05/26/2025 11:06 AM EST [facility] Blood Venous blood specimen / Unknown Venipuncture / Unknown 05/26/2025 9:02 AM EST 05/26/2025 9:02 AM EST us Gemma MONTALVO LAB BLOOD ORDERABLES Final Result Performing Organization Address [facility]/ZIP Co de Phone Number [facility] [address] [place] [address], [place] [phone] * Basic metabolic panel (05/26/2025 9:02 AM EST) Sodium 139 133 - 145 mmol/L LAB CHEMISTRY METHOD 05/26/2025 11:21 AM [facility] Potassium 4.2 3.5 - 5.5 mmol/L LAB CHEMISTRY METHOD 05/26/2025 11:21 AM [facility] Chloride 103 96 - 110 mmol/L LAB CHEMISTRY METHOD 05/26/2025 11:21 AM [facility] CO2 29 21 - 32 mmol/L LAB CHEMISTRY METHOD 05/26/2025 11:21 AM [facility] Anion Gap 7 3 - 11 LAB CHEMISTRY METHOD 05/26/2025 11:21 AM [facility] Glucose 94 70 - 100 mg/dL LAB CHEMISTRY METHOD 05/26/2025 11:21 AM [facility] BUN 18 5 - 25 mg/dL LAB CHEMISTRY METHOD 05/26/2025 11:21 AM [facility] Creatinine 0.75 0.50 - 1.10 mg/dL LAB CHEMISTRY METHOD 05/26/2025 11:21 AM [facility] eGFR 92 >=60 mL/min/1. 73m2 LAB CHEMISTRY METHOD 05/26/2025 11:21 AM [facility] Comment:Calculation based on the Chronic Kidney Disease Epidemiology Collaboration (CKD-EPI) equation refit without adjustment for race. BUN/Creatinine Ratio 24.0 LAB CHEMISTRY METHOD 05/26/2025 11:21 AM [facility] Calcium 9.6 8.5 - 10.5 mg/dL LAB CHEMISTRY METHOD 05/26/2025 11:21 AM [facility] Blood Venous blood specimen / Unknown Venipuncture / Unknown 05/26/2025 9:02 AM EST 05/26/2025 9:02 AM EST us Gemma MONTALVO LAB BLOOD ORDERABLES Final Result [facility] [address] [place] [address], * External clinical lab (05/26/2025) Provider [facility] LAB BLOOD ORDERABLES Fin al Result * COLONOSCOPY Anesthesia - MAC; [facility] ENDOSCOPY (06/15/2024 8:38 AM EST) Anatomical Region [...] was minimal. Procedure Code(s): --- Professional --- 95813, Colonoscopy, flexible; with removal of tumor(s), polyp(s), or other lesion(s) by snare technique Diagnosis Code(s): --- Professional --- Z12.11, Encounter for screening for malignant neoplasm of colon K64.0, First degree hemorrhoids D12.0, Benign neoplasm of cecum K57.30, Diverticulosis of large intestine without perforation or abscess without bleeding CPT copyright 2020 [employer]. All rights reserved. The codes documented in this report are preliminary and upon drawing checker review may be revised to meet current compliance requirements. Marco Hagan MD 06/15/2024 8:38:50 AM This report has been signed electronically.Marco Hagan MD Number of Addenda: 0 Note Initiated On: 06/15/2024 8:15 AM Scope In: Scope Out: Endoscopy Department at [facility] - [address] [place] [phone] Procedure Note Marco Hagan MD - 06/15/2024 [...] was minimal. Procedure Code(s): --- Professional --- 86070, Colonoscopy, flexible; with removal of tumor(s), polyp(s), or other lesion(s) by snare technique Diagnosis Code(s): --- Professional --- Z12.11, Encounter for screening for malignantneoplasm of colon K64.0, First degree hemorrhoids D12.0, Benign neoplasm of cecum K57.30, Diverticulosis of large intestine without perforation or abscess without bleeding CPT copyright 2020 [employer]. All rights reserved. The codes documented in this report are preliminary and upon drawing checker reviewmay be revised to meet current compliance requirements. Marco Hagan MD 06/15/2024 8:38:50 AM This report has been signed electronically.Marco Hagan MD Number of Addenda: 0 Note Initiated On: 06/15/2024 8:15 AM Scope In: Scope Out: Endoscopy Department at [facility] - [address] [place] [phone] IMPRESSION: - Internal hemorrhoids. - Diverticulosis in [...] Report (06/07/2024) Anatomical Region Laterality Modality Ultrasound us Provider [facility] IMG US PROCEDURES Final Resul t * Depression Screening (03/23/2024) Depression Screening abstracted Historical Provider HEALTH MAINTENANCE Final Result * Diabetes Foot Exam (06/09/2023) Diabetes: Annual Foot Exam abstracted Historical Provider HEALTH MAINTENANCE Final Result * HIV Screening (01/11/2019) Pathologist [facility] HIV Screening abstracted Historical Provider HEALTH MAINTENANCE Final Result * Hepatitis C Screening (01/11/2019) Pathologist [facility] Hepatitis C Screening abstracted Historical Provider HEALTH MAINTENANCE Final Result * Pap smear (01/11/2019) 01/11/2019 Narrative HISTORICAL TESTING LAB RESULTING AGENCY - 01/24/2019 7:50 AM EDT [id number] THINPREP PAP, IMAGED: NEGATIVE FOR SQUAMOUS INTRAEPITHELIAL LESION AND MALIGNANCY . GRECTHEN SANDHU(ASCP) (CASE ELECTRONICALLY SIGNED 01 21 2019) RESULT OF APTIMA HIGH RISK HPV ASSAY: HIGH RISK HPV: NEGATIVE (SEROTYPES 16,18,31,33,35,39,45,51,52,56,58,59,66,68) COMPLETED ON 2019-01-14 ADEQUACY: SATISFACTORY ENDOCERVICAL/TRANSFORMATION ZONE COMPONENT PRESENT. SOURCE: THINPREP PAP HPV ANY DX: REFLEX 16 AND 18, CERVICAL, IMAGED CLINICAL INFORMATION: HPV ANY DIAGNOSIS. Z12.4, Z01.419, HYSTERECTOMY, PAP HX POSITIVE HPV 6/22/18 Jhoana Albarran CNM LAB CYTOLOGY ORDERABLES Final Result HISTORICAL TESTING LAB RESULTING AGENCY * KAYLEY SCREENING DIGITAL (12/30/2017 2:34 PM EDT) Anatomical Region Laterality Modality Mammography 12/30/2017 8:07 AM EDT Narrative 12/30/2017 2:34 PM EDT [facility] Diagnostic Imaging Department [address] [place] [id number] Patient: EDUARD GUTIERREZLANDA Kwame RochaB./Age/Sex: 1965 - 52 - F Unit#: [id number] Location/Status: [facility] CLI Mnemonic/Ordering Site: DIGSC/SPMAM Ordering Physician: YONG ROLLE MD [facility] Screening Digital - 12/30/17 - 0844 EXAM: [facility] Screening Digital EXAM DATE AND TIME: 12/30/2017 8:46 AM HISTORY: Screening. Multiple family members with breast carcinoma including mother, age 38, sister, age 26, and maternal aunt, at age 40. COMPARISON: 12/07/09 ([facility], [place], [place]) TECHNIQUE: CC and MLO views of both breasts were obtained using full field digital mammography. Bilateral digital breast tomosynthesis was performed in the MLO projection. Computer aided detection with the [employer]gar[employer] 7.2-H was employed. TISSUE DENSITY: b. There [...] Routine screening mammogram BILATERAL in 1 year. [address]22, 15517 3341F, 7025F Dictating Physician: SKYE BARLOW MD Electronically Signed by: SKYE BARLOW MD Dic Date/Time: 12/30/171432 Sign date/Time: 12/30/17 143 Procedure Note Skye Barlow MD - 07/08/2022 [facility] Diagnostic Imaging Department [address] [place] [id number] Patient: EDUARD GUTIERREZLANDA Kwame /Age/Sex: 1965 - 52 - F Unit#: [id number] Location/Status: [facility] CLI Mnemonic/Ordering Site: [facility] Ordering Physician: YONG ROLLE MD [facility] Screening Digital - 12/30/17 - 44 EXAM: [facility] Screening Digital EXAM DATE AND TIME: 12/30/2017 8:46 AM HISTORY: Screening. Multiple family members with breast carcinomaincluding mother, age 38, sister, age 26, and maternal aunt, at age 40. COMPARISON: 12/07/09 ([facility], [place], [place]) TECHNIQUE: CC and MLO views of both breasts were obtained using fullfield digital mammography. Bilateral digital breast tomosynthesis was performedin the MLO projection. Computer aided detection with the [employer] employed. TISSUE DENSITY: b. There are scattered [...] Routine screening mammogram BILATERAL in 1 year. 22080, 81364 3341F, 7025F Dictating Physician: SKYE BARLOW MD Electronically Signed by: SKYE BARLOW MD Dic Date/Time: 12/30/17 1433 Sign date/Time: 12/30/17 1434 Yong Rolle MD IMG BI PROCEDURES Final Resu lt from Last 3 Months or Most Recently Relevant to Health Maintenance Insurance [facility] [employer] [facility] Advance Directives * Full Code - [...] currently active code status orders. Care Teams Epic Ambulatory Specialists Relationship Specialty Start Date End Date Cynthia Sweet MD [address] [place] [address] [phone] PCP - General Internal Medicine 06/22/24
--- OUTSIDE RECORDS SUMMARY | 2025-06-30 20:14 | XMS_ITS | Encounter Summary ---
Author Organization [facility] Address [address] [place] [address] Care Team Providers Care On Call Pharmacy Technician Name Role Phone Cynthia Sweet MD Primary Care Provider [phone] Encounter Details Date Type Department Care Team (Late st Contact Info) Description 05/26/2025 Results Follow-Up Endocrinology - [place] [address] [place] [phone] Gemma Ferris PA [address] [place] [address] Social History Tobacco Use Types Packs/Day Years [...] Upcoming Encounters Date Type Department Care Team ([facility] Contact Info) Description 09/20/2025 4:00 PM EST Office Visit Adult Medicine [address] [place], [place] [phone] Cynthia wSeet MD [address] [place] [address] 09/26/2025 8:00 AM EDT Office Visit Endocrinology - [address] [phone] Lisha Sweet PA [address] [place] [address] documented as of this encounter Visit Diagnoses Not on filedocumented in this encounter Additional Health Concerns Assessment Noted Time PHQ-9 Depression Total Score: 9 09/07/19 25 7:35 AM EST documented as of this encounter Care Teams On Call Pharmacy Technician Relationship Specialty Start Date End Date Cynthia Sweet MD [address] [place] [address] PCP - General Internal Medicine 06/22/24 documented as of this encounter
--- OUTSIDE RECORDS SUMMARY | 2025-06-30 20:14 | XMS_ITS | Clinical Summary ---
Author Organization [facility] Prior to 12/17/[address] [place] [id number] Care Team Providers Care Director Of Contracts Name Role Phone Brady-Jackie Escobar MD Primary Care Provider Social History Tobacco [...] age to complete this topic Care Teams Director Of Contracts Relationship Specialty Start Date End Date Brady-Jackie Escobar MD PCP - General Internal Medicine 03/27/20
--- OUTSIDE RECORDS SUMMARY | 2025-06-30 20:14 | XMS_ITS | Clinical Summary ---
Author Organization [facility] Address [facility] [address] [address] Phone Care Team Providers Care Evp Name Role Phone Litzy Willis MD Primary [...] topic Medical Devices Not on file Insurance [employer] [place] [address] [place] [address] [employer] [facility] [employer] [facility] [employer] [place] [address] [place] [address] [employer] [facility] [employer] [place] [address] [facility] Care Teams Evp Relationship Specialty Start Date End Date Litzy Willis MD [address] [place] [address] PCP - General 06/10/21 Additional Source Comments The information contained in this document represents components of the legal health record. It is not the complete legal health record.[facility]
== END 2025-06-30 16:58 | disposition home or self-care (01) ==
LOC: HO.RHES 15:22
PROVIDERS: PCP Internal Medicine; Visit Provider Student in an Organized Health Care Education/Training Program
DX: M05.9 Rheumatoid arthritis with rheumatoid factor, unspecified (principal)
CPT/HCPCS: 99214

== ENCOUNTER → 2025-06-30 15:22 | Outpatient (BNVA) | payer OTHER, SELFPAY | PROVIDERS: PCP Internal Medicine; Visit Provider Student in an Organized Health Care Education/Training Program | DX: M05.9 Rheumatoid arthritis with rheumatoid factor, unspecified (principal); R79.89 Other specified abnormal findings of blood chemistry; Z79.52 Long term (current) use of systemic steroids | CPT/HCPCS: 99212 ==